=== PATIENT | female | born 1935 | race Caucasian/White ===

== ENCOUNTER 2019-12-26 13:29 | Outpatient (REF) | payer MEDICARE, OTHER, SELFPAY ==
[2019-12-26 15:21] LABS: Anion Gap 15 (12-20); Blood Urea Nitrogen 31 mg/dL (9-16); Calcium 9.1 mg/dL (8.4-10.2); Carbon Dioxide 27 mmol/L (22-29); Chloride 104 mmol/L (96-108); Estimated Glomerular Filt Rate 55; Glucose Random 87 mg/dL (60-115); Potassium 4.2 mmol/l (3.3-5.1); Sodium 142 mmol/L (135-145)
== END 2019-12-26 13:30 | disposition home or self-care (01) ==
LOC: HO.LAB 13:29
PROVIDERS: PCP Internal Medicine; Visit Provider Internal Medicine
DX: I50.9 Heart failure, unspecified (principal)
CPT/HCPCS: 80048

== ENCOUNTER 2020-01-29 10:21 | Outpatient (REF) | payer MEDICARE, OTHER, SELFPAY ==
[2020-01-29 11:02] LABS: Basophils Percent Auto 0.3 % (0-2); Hematocrit 30.2 % (37-47); MANUAL DIFF FLAG SCAN; Red Cell Distribution Width 16.4 % (11.0-16.0); SCAN SMEAR FLAG 1
[2020-01-29 11:04] LABS: Eosinophils Percent Auto 0.6 % (0-4); Hemoglobin 9.3 g/dl (12.0-16.0); Imm Gran Abs Auto 0.04 X10*3/uL (0.00-0.03); Imm Gran Pct Auto 1.2 % (0.0-0.4); Lymphocytes Absolute Auto 0.8 X10*3/uL (1.2-4.9); Lymphocytes Percent Auto 23.1 % (20-40); Mean Corpuscular HGB Conc 30.8 g/dl (31.0-35.0); Mean Corpuscular Hemoglobin 29.5 pg (27.0-33.0); Mean Corpuscular Volume 95.9 fL (80-98); Monocytes Absolute Auto 1.2 X10*3/uL (0.1-1.2); Monocytes Percent Auto 34.1 % (2-11); Neutrophils Absolute Auto 1.4 X10*3/uL (2.0-8.3); Neutrophils Percent Auto 40.7 % (45-73); Red Blood Count 3.15 X10*6/uL (4.20-5.50); White Blood Count 3.5 X10*3/uL (4.8-10.8)
[2020-01-29 11:10] LABS: PLT ABN DIST 1; Platelet Count 93 X10*3/uL (160-400)
[2020-01-29 11:36] LABS: SLIDE REVIEW VERIFIED
[2020-01-29 11:43] LABS: Alanine Aminotransferase 11 U/L (0-31); Albumin Level 4.1 g/dL (3.5-5.0); Alkaline Phosphatase 85 U/L (39-117); Anion Gap 13 (12-20); Aspartate Amino Transferase 18 U/L (5-31); Blood Urea Nitrogen 24 mg/dL (9-16); Calcium 8.8 mg/dL (8.4-10.2); Carbon Dioxide 28 mmol/L (22-29); Chloride 104 mmol/L (96-108); Cholesterol 130 mg/dL; Estimated Glomerular Filt Rate 47; Glucose Random 81 mg/dL (60-115); HDL Cholesterol 52 mg/dL; LDL Cholesterol Calculated 66 mg/dl; Potassium 4.3 mmol/l (3.3-5.1); Sodium 141 mmol/L (135-145); Total Protein 6.1 g/dL (6.5-8.0); Triglycerides 60 mg/dL
== END 2020-01-29 10:22 | disposition home or self-care (01) ==
LOC: HO.LAB 10:21
PROVIDERS: PCP Internal Medicine; Referring Provider Internal Medicine Cardiovascular Disease; Visit Provider Internal Medicine Cardiovascular Disease
DX: I10 Essential (primary) hypertension (principal)
CPT/HCPCS: 36415; 80053; 80061; 85025

== ENCOUNTER 2020-04-23 | Outpatient (REF) | payer MEDICARE, OTHER, SELFPAY | END 2020-04-23 00:01 | disposition home or self-care (01) | LOC: HO.VC | PROVIDERS: Visit Provider Internal Medicine | DX: Z23 Encounter for immunization (principal) | CPT/HCPCS: 0011A ==

== ENCOUNTER 2020-05-20 | Outpatient (REF) | payer MEDICARE, OTHER, SELFPAY | END 2020-05-20 00:01 | disposition home or self-care (01) | LOC: HO.VC | PROVIDERS: Visit Provider Internal Medicine | DX: Z23 Encounter for immunization (principal) | CPT/HCPCS: 0012A ==

== ENCOUNTER 2020-06-18 10:31 | Outpatient (REF) | payer MEDICARE, OTHER, SELFPAY ==
[2020-06-18 11:34] LABS: Imm Gran Abs Auto 0.05 X10*3/uL (0.00-0.03); Imm Gran Pct Auto 1.1 % (0.0-0.4); MANUAL DIFF FLAG SCAN; Mean Corpuscular Volume 97.2 fL (80-98); Red Cell Distribution Width 17.2 % (11.0-16.0); SCAN SMEAR FLAG 1; White Blood Count 4.7 X10*3/uL (4.8-10.8)
[2020-06-18 11:36] LABS: Basophils Percent Auto 0.4 % (0-2); Eosinophils Absolute Auto 0.1 X10*3/uL (0.0-0.4); Eosinophils Percent Auto 1.5 % (0-4); Hematocrit 30.7 % (37-47); Hemoglobin 9.5 g/dl (12.0-16.0); Lymphocytes Absolute Auto 0.8 X10*3/uL (1.2-4.9); Mean Corpuscular HGB Conc 30.9 g/dl (31.0-35.0); Mean Corpuscular Hemoglobin 30.1 pg (27.0-33.0); Mean Platelet Volume 13.9 fL (9.4-12.3); Monocytes Percent Auto 42.1 % (2-11); Neutrophils Absolute Auto 1.8 X10*3/uL (2.0-8.3); Neutrophils Percent Auto 37.9 % (45-73); Platelet Count 103 X10*3/uL (160-400); Red Blood Count 3.16 X10*6/uL (4.20-5.50)
[2020-06-18 11:40] LABS: PLT ABN DIST 1
[2020-06-18 11:42] LABS: Glucose Urine UA NEG (NEG); Leukocyte Esterase Urine NEG (NEG); Nitrite Urine NEG (NEG); PH 5.5 (5.0-8.0); Urine Blood NEG (NEG); Urine Ketones NEG (NEG); Urine Protein NEG (NEG-TRACE)
[2020-06-18 11:43] LABS: Appearance Urine CLEAR; Color Urine YELLOW
[2020-06-18 12:12] LABS: Alanine Aminotransferase 14 U/L (0-31); Albumin Level 4.5 g/dL (3.5-5.0); Alkaline Phosphatase 100 U/L (39-117); Anion Gap 16 (12-20); Aspartate Amino Transferase 20 U/L (5-31); Blood Urea Nitrogen 28 mg/dL (9-16); Calcium 8.8 mg/dL (8.4-10.2); Carbon Dioxide 25 mmol/L (22-29); Chloride 107 mmol/L (96-108); Cholesterol 140 mg/dL; Estimated Glomerular Filt Rate 48; Glucose Fasting 81 mg/dL (60-99); HDL Cholesterol 58 mg/dL; LDL Cholesterol Calculated 71 mg/dl; Potassium 4.5 mmol/L (3.3-5.1); Sodium 143 mmol/L (135-145); Total Protein 6.5 g/dL (6.5-8.0); Triglycerides 59 mg/dL
[2020-06-18 12:19] LABS: Free T4 (Free Thyroxine) 1.09 ng/dL (0.71-1.85); Thyroid Stimulating Hormone 0.41 uIU/mL (0.32-4.0); Vitamin D 25-OH Total 8.7 ng/mL (>30)
[2020-06-18 13:34] LABS: SLIDE REVIEW VERIFIED
== END 2020-06-18 10:32 | disposition home or self-care (01) ==
LOC: HO.LAB 10:31
PROVIDERS: PCP Internal Medicine; Visit Provider Internal Medicine
DX: I10 Essential (primary) hypertension (principal); D46.9 Myelodysplastic syndrome, unspecified; C92.01 Acute myeloblastic leukemia, in remission; E03.9 Hypothyroidism, unspecified; E78.00 Pure hypercholesterolemia, unspecified; I48.91 Unspecified atrial fibrillation; E55.9 Vitamin D deficiency, unspecified
CPT/HCPCS: 36415; 80053; 80061; 81003; 82306; 84439; 84443; 85025

== ENCOUNTER 2020-09-19 14:54 | Outpatient (REF) | payer MEDICARE, OTHER, SELFPAY ==
--- NOTE | ~2020-09-19 | XR_ITS ---
EXAMINATION: XR CHEST CLINICAL INFORMATION: Dyspnea COMPARISON: Previous chest x-ray TECHNIQUE: 2 views of the chest were obtained. FINDINGS: The cardiac silhouette is slightly enlarged but stable. The thoracic aorta is ectatic and tortuous but stable. There are surgical clips in the right superior mediastinum. There are median sternotomy wires. There may be pulmonary venous redistribution. There are bilateral pulmonary nodular opacities, largest measuring 1 to 1.5 cm. There are small bilateral pleural effusions. There are degenerative changes of the spine and shoulders. XR/XR chest 2V IMPRESSION: Pulmonary venous redistribution and small bilateral pleural effusions questionable for CHF. There are bilateral pulmonary nodular opacities. This is atypical for pulmonary edema and infectious, inflammatory or neoplastic process should be considered. This could be better evaluated with chest CT scan. 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
== END 2020-09-19 14:55 | disposition home or self-care (01) ==
LOC: HO.XRAY 14:54
PROVIDERS: PCP Internal Medicine; Visit Provider Internal Medicine
DX: R06.00 Dyspnea, unspecified (principal)
CPT/HCPCS: 71046

== ENCOUNTER 2021-03-03 12:04 | Outpatient (REF) | payer MEDICARE, OTHER, SELFPAY ==
[2021-03-03 13:52] LABS: Appearance Urine HAZY; Color Urine YELLOW; Glucose Urine UA NEG (NEG); Leukocyte Esterase Urine NEG (NEG); Nitrite Urine NEG (NEG); PH 5.5 (5.0-8.0); Specific Gravity - Urine 1.025 (1.005-1.025); Urine Blood NEG (NEG); Urine Ketones NEG (NEG); Urine Protein NEG (NEG-TRACE)
[2021-03-03 13:58] LABS: Basophils Percent Auto 0.4 % (0-2); Eosinophils Absolute Auto 0.1 X10*3/uL (0.0-0.4); Eosinophils Percent Auto 1.1 % (0-4); Hematocrit 31.5 % (37.0-47.0); Hemoglobin 9.8 g/dl (12.0-16.0); Imm Gran Abs Auto 0.08 X10*3/uL (0.00-0.03); Imm Gran Pct Auto 1.4 % (0.0-0.4); Lymphocytes Absolute Auto 0.6 X10*3/uL (1.2-4.9); Lymphocytes Percent Auto 10.1 % (20-40); MANUAL DIFF FLAG SCAN; Mean Corpuscular HGB Conc 31.1 g/dl (31.0-35.0); Mean Corpuscular Hemoglobin 29.4 pg (27.0-33.0); Mean Corpuscular Volume 94.6 fL (80.0-98.0); Monocytes Absolute Auto 2.4 X10*3/uL (0.1-1.2); Monocytes Percent Auto 41.7 % (2-11); Neutrophils Absolute Auto 2.6 x10*3/uL (2.0-8.3); Neutrophils Percent Auto 45.3 % (45-73); Platelet Count 115 X10*3/uL (160-400); Red Blood Count 3.33 X10*6/uL (4.20-5.50); Red Cell Distribution Width 17.3 % (11.0-16.0); SCAN SMEAR FLAG 1; White Blood Count 5.6 X10*3/uL (4.8-10.8)
[2021-03-03 14:28] LABS: Alanine Aminotransferase 10 U/L (0-31); Albumin Level 4.3 g/dL (3.5-5.0); Alkaline Phosphatase 95 U/L (39-117); Anion Gap 14 (12-20); Aspartate Amino Transferase 18 U/L (5-31); Bilirubin Total 1.2 mg/dL (0.0-1.0); Blood Urea Nitrogen 18 mg/dL (9-16); Calcium 9.3 mg/dL (8.4-10.2); Carbon Dioxide 26 mmol/L (22-29); Chloride 106 mmol/L (96-108); Cholesterol 168 mg/dL; Estimated Glomerular Filt Rate 52; Glucose Fasting 78 mg/dL (60-99); HDL Cholesterol 57 mg/dL; LDL Cholesterol Calculated 97 mg/dl; Potassium 4.3 mmol/L (3.3-5.1); SLIDE REVIEW VERIFIED; Sodium 142 mmol/L (135-145); Total Protein 6.5 g/dL (6.5-8.0); Triglycerides 71 mg/dL
[2021-03-03 14:38] LABS: Free T4 (Free Thyroxine) 1.47 ng/dL (0.71-1.85); Thyroid Stimulating Hormone 0.83 uIU/mL (0.32-4.0); Vitamin D 25-OH Total 15.8 ng/mL (>30)
== END 2021-03-03 12:05 | disposition home or self-care (01) ==
LOC: HO.HMGCLDS 12:04
PROVIDERS: PCP Internal Medicine; Visit Provider Internal Medicine
DX: D46.9 Myelodysplastic syndrome, unspecified (principal); E03.9 Hypothyroidism, unspecified; I35.0 Nonrheumatic aortic (valve) stenosis; I48.91 Unspecified atrial fibrillation; E78.00 Pure hypercholesterolemia, unspecified; I10 Essential (primary) hypertension; E55.9 Vitamin D deficiency, unspecified
CPT/HCPCS: 36415; 80053; 80061; 81003; 82306; 84439; 84443; 85025

== ENCOUNTER 2021-07-13 09:59 | Outpatient (REF) | payer MEDICARE, OTHER, SELFPAY ==
[2021-07-13 12:01] LABS: Basophils Percent Auto 0.6 % (0-2); Eosinophils Percent Auto 0.6 % (0-4); SCAN SMEAR FLAG 1
[2021-07-13 12:03] LABS: Hematocrit 31.7 % (37.0-47.0); Imm Gran Abs Auto 0.05 X10*3/uL (0.00-0.03); Imm Gran Pct Auto 1.4 % (0.0-0.4); Lymphocytes Absolute Auto 0.7 X10*3/uL (1.2-4.9); Lymphocytes Percent Auto 18.5 % (20-40); MANUAL DIFF FLAG SCAN; Mean Corpuscular HGB Conc 31.5 g/dl (31.0-35.0); Mean Corpuscular Hemoglobin 30.8 pg (27.0-33.0); Mean Corpuscular Volume 97.5 fL (80.0-98.0); Monocytes Absolute Auto 1.2 X10*3/uL (0.1-1.2); Monocytes Percent Auto 34.8 % (2-11); Neutrophils Absolute Auto 1.6 x10*3/uL (2.0-8.3); Neutrophils Percent Auto 44.1 % (45-73); Platelet Count 107 X10*3/uL (160-400); Red Blood Count 3.25 X10*6/uL (4.20-5.50); Red Cell Distribution Width 17.9 % (11.0-16.0); White Blood Count 3.5 X10*3/uL (4.8-10.8)
[2021-07-13 12:07] LABS: PLT ABN DIST 1
[2021-07-13 12:27] LABS: Appearance Urine CLEAR; Color Urine YELLOW; Glucose Urine UA NEG (NEG); Leukocyte Esterase Urine NEG (NEG); Nitrite Urine NEG (NEG); PH 5.5 (5.0-8.0); Specific Gravity - Urine 1.025 (1.005-1.025); UACC Culture Trigger NO; Urine Blood TRACE (NEG); Urine Ketones NEG (NEG); Urine Protein NEG (NEG-TRACE)
[2021-07-13 12:35] LABS: Alanine Aminotransferase 9 U/L (0-31); Albumin Level 4.4 g/dL (3.5-5.0); Alkaline Phosphatase 83 U/L (39-117); Anion Gap 12 (12-20); Aspartate Amino Transferase 18 U/L (5-31); Bilirubin Total 1.2 mg/dL (0.0-1.0); Blood Urea Nitrogen 24 mg/dL (9-16); Calcium 9.3 mg/dL (8.4-10.2); Carbon Dioxide 27 mmol/L (22-29); Chloride 108 mmol/L (96-108); Cholesterol 167 mg/dL; Estimated Glomerular Filt Rate 40; Free T4 (Free Thyroxine) 1.64 ng/dL (0.71-1.85); Glucose Fasting 92 mg/dL (60-99); HDL Cholesterol 71 mg/dL; LDL Cholesterol Calculated 84 mg/dl; Potassium 4.8 mmol/L (3.3-5.1); Sodium 142 mmol/L (135-145); Thyroid Stimulating Hormone 0.62 uIU/mL (0.32-4.0); Total Protein 6.9 g/dL (6.5-8.0); Triglycerides 60 mg/dL; Vitamin D 25-OH Total 10.5 ng/mL (>30)
[2021-07-13 12:51] LABS: Squamous Epithelial Cell Urine 1+ /LPF
[2021-07-13 12:52] LABS: Bacteria Urine TRACE /LPF; RBC Urine 0 /HPF (0)
[2021-07-13 13:20] LABS: SLIDE REVIEW VERIFIED
== END 2021-07-13 10:00 | disposition home or self-care (01) ==
LOC: HO.HMGCLDS 09:59
PROVIDERS: Visit Provider Internal Medicine
DX: E03.9 Hypothyroidism, unspecified (principal); E55.9 Vitamin D deficiency, unspecified; E78.00 Pure hypercholesterolemia, unspecified; I10 Essential (primary) hypertension
CPT/HCPCS: 36415; 80053; 80061; 81001; 81003; 82306; 84439; 84443; 85025

== ENCOUNTER → 2021-08-11 12:42 | Outpatient (BNVA) | payer MEDICARE, OTHER, SELFPAY | PROVIDERS: PCP Internal Medicine; Visit Provider Surgery | DX: C44.91 Basal cell carcinoma of skin, unspecified (principal) | CPT/HCPCS: 99202 ==

== ENCOUNTER 2021-09-17 09:08 | Outpatient (REF) | payer MEDICARE, OTHER, SELFPAY ==
[2021-09-17 10:26] VITALS: BP 156/59; PULSE 59; RESP 16; TEMP 36.7; O2SAT 100; BMI 21.8
--- NOTE | 2021-09-18 14:12 | W.PM.OPN ---
Operative Note Operative Note Date of Service: 09/17/21 Narrative: Preoperative diagnosis: Basal cell carcinoma left forearm Postoperative diagnosis: Same Procedure: Excision of basal cell carcinoma left forearm Surgeon: Javi Keith MD Video Game Tester: None Anesthesia: Local Indications for procedure: 86-year-old female patient with a prior history of basal cell carcinoma presenting with a raised, hard and enlarging lesion of the left forearm. Patient was evaluated by dermatology and excision recommended. Operative findings: 1.5 cm skin lesion located on the dorsum of the left forearm, excised with 3 mm margins circumferentially. Specimen: Left forearm basal cell carcinoma Estimated blood loss: 2 mL Complications: None Procedure details: Patient was brought to the minor surgery suite and placed in a supine position. The site of surgery was confirmed by the patient in the left forearm. After assuring informed consent, the skin was prepped with Betadine and draped in a sterile fashion. Local anesthesia consisting 1% lidocaine with epinephrine was infiltrated circumferentially around the lesion. An elliptical incision oriented longitudinally was then created with a scalpel. This was carried down through subcutaneous tissue and around the lesion just above the muscle fascia. The lesion was passed off the table and sent to pathology for further examination. After assuring adequate hemostasis dermis was reapproximated using interrupted 3-0 Polysorb sutures. Skin was then closed using interrupted 4-0 nylon sutures. Sterile dressings and non adhesive wrap applied. The patient tolerated the procedure well was discharged to home in stable condition.
== END 2021-09-17 09:09 | disposition home or self-care (01) ==
LOC: HO.MS 09:08
PROVIDERS: PCP Internal Medicine; Visit Provider Surgery
PROC: (CPT 11602; principal; 2021-09-17 11:00)
DX: C44.619 Basal cell carcinoma of skin of left upper limb, including shoulder (principal)
CPT/HCPCS: 11602; 12031; 88305

== ENCOUNTER 2021-09-21 07:49 | Emergency (ER) | payer MEDICARE, OTHER, SELFPAY ==
--- NOTE | ~2021-09-21 | US_ITS ---
EXAMINATION: US VENOUS WITH DOPPLER UPPER EXTREMITY, LEFT CLINICAL INFORMATION: Left arm redness, pain and warmth. COMPARISON: None TECHNIQUE: Ultrasound of the upper extremity is performed using compression sonography and color and pulse Doppler flow with assessment of augmentation of flow. There is also imaging and Doppler assessment of the jugular and subclavian veins. Spectral analysis with color-flow imaging is performed. FINDINGS: Respiratory variation, normal compression, and augmented flow are noted throughout the upper extremity including the axillary, brachial, cubital, as well as proximal radial and ulnar veins. The distal segments cannot be interrogated secondary to overlying bandages. There is normal flow in the internal jugular and subclavian veins. There is no visible deep or superficial thrombophlebitis. Mild subcutaneous edema proximally in the forearm. If the patient's symptoms progress, a followup ultrasound in 5 -7 days might be of value to exclude proximal propagation from a nonvisualized distal arm vein. US/US venous duplex UE LT IMPRESSION: No evidence for deep venous thrombosis in the visualized veins of the left upper extremity.
[2021-09-21 08:04] VITALS: BP 128/38; BP 142/60; PULSE 67; PULSE 74; RESP 16; TEMP 37.8; O2SAT 96; O2SAT 97; BMI 21.8
--- NOTE | 2021-09-21 08:56 | ED.GENADULT ---
HPI - General Adult General Chief complaint: General Medical Stated complaint: BLEEDING LT ARM Time Seen by Provider: 09/21/21 08:56 Source: patient and family () Mode of arrival: ambulatory Limitations: no limitations History of Present Illness HPI narrative: Patient is an 86 year old female presenting to the emergency department today with bleeding from a left forearm incision. Patient states that she had a lump removed on 09/18/[address] Keith. Patient states that she began to bleed from the incision today. Patient states that she is on Eliquis usually and stopped it prior to and during the procedure but she started it again. Patient states that her entire left arm hurts and has some redness and some warmth to it. Patient denies any dizziness, lightheadedness, abdominal pain, nausea, vomiting, fever, chills, blurry vision, double vision, loss of vision, chest pain, difficulty breathing, shortness of breath, back pain, night sweats, pain with urination, increased urinary frequency, increased urinary urgency, blood in her urine or stool, syncope or a near syncopal episode, recent trauma or falls, bowel incontinence, bladder incontinence, bowel retention, bladder retention, or any other complaints at this time. Onset (ago): hour(s) Location: left and upper extremity (forerarm) Severity: mild Severity scale (1-10): 3 Quality: dull Pain Consistency: constant Relieving factors: none Exacerbating factors: none Associated symptoms: denies other symptoms Treatments prior to arrival: none Related Data Home Medications Medication Instructions Recorded Confirmed albuterol sulfate 90 mcg/actuation 2 puff inhalation Q4-6H PRN 12/13/20 07/07/21 aerosol inhaler (ProAir HFA) amiodarone 200 mg tablet 200 mg PO DAILY 12/13/20 08/11/21 apixaban 2.5 mg tablet (Eliquis) 2.5 mg PO BID 12/13/20 08/11/21 atorvastatin 10 mg tablet 10 mg PO DAILY 12/13/20 08/11/21 Previous Rx's Medication Instructions Recorded furosemide 40 mg tablet (Lasix) 40 mg PO Q OTHER DAY #30 tabs 07/14/21 levothyroxine 100 mcg tablet 100 mcg PO QAM #90 tabs 07/14/21 omeprazole 20 mg capsule,delayed 20 mg PO DAILY #90 caps 07/14/21 release tramadol 50 mg tablet 50 mg PO TID PRN pain 30 days #90 07/14/21 tabs cephalexin 500 mg capsule 500 mg PO Q6H 7 days #28 caps 09/21/21 Allergies Allergy/AdvReac Type Severity Reaction Status Date / Time oxycodone Allergy Unknown hallucinati Verified 07/07/21 15:01 ons Review of Systems Constitutional: Constitutional: Reports no additional constitutional complaints, Denies chills, Denies fever(s) and Denies night sweats Eyes: Eyes: Reports no additional eye complaints, Denies blurry vision, Denies change in vision, Denies diplopia, Denies eye discharge, Denies loss of vision and Denies eye pain ENT: Denies dizziness Cardiovascular: Cardiovascular: Reports no additional cardiovascular complaints, Denies chest pain, Denies lightheadedness, Denies Loss of Consciousness and Denies dyspnea Respiratory: Respiratory: Reports no additional respiratory complaints and Denies dyspnea Gastrointestinal: Gastrointestinal: Reports no additional gastrointestinal complaints, Denies abdominal pain, Denies melena, Denies hematochezia, Denies change in bowel habits and Denies change in stool character Genitourinary: Genitourinary: Denies hematuria, Denies urinary frequency, Denies dysuria, Denies urinary incontinence, Denies urinary hesitancy and Denies urinary urgency Musculoskeletal: Musculoskeletal: Reports no additional musculoskeletal complaints, Denies numbness and Denies tingling Comments: left forearm pain, oozing type bleeding from left forearm laceration Neurologic: Denies dizziness, Denies loss of vision, Denies numbness and Denies tingling Psychiatric: Psychiatric: Reports no additional psychiatric complaints Endocrine: Endocrine: Reports no additional endocrine complaints Hematologic/Lymphatic: Hematologic/Lymphatic: Reports no additional hematologic/lymphatic complaints Allergic/Immunologic: Allergic/Immunologic: Reports no additional allergic/immunologic complaints [facility] Past Medical History Attestation statement: The following information was validated with the patient. Source: old records reviewed Medical History Acquired hypothyroidism Acute myelogenous leukemia in remission Aortic stenosis Atrial fibrillation Benign essential hypertension Congestive heart failure Constipation Femur fracture (~08/08/14) GERD without esophagitis Lumbar degenerative disc disease Myelodysplastic syndrome Osteoarthritis Osteopenia Pure hypercholesterolemia Thrombocytopenia Vitamin D deficiency Surgical History Hx laparoscopic cholecystectomy (~06/01/17) S/P aortic dissection repair (~01/27/19) S/P TAVR (transcatheter aortic valve replacement) (~11/21/20) Family History Family History Father No problems noted. Mother No problems noted. Social History Social History Housing: House Alcohol intake: never Patient Tobacco Use Status: Never used Tobacco Tobacco use type: Cigarette e-Cigarette/Vaping Use: Never Used Second Hand Smoke Exposure: No Advance Directives: Yes Advance Directives Information Provided: Yes Advance Directives on File: No Current occupational status: retired Cognitive needs: No Hearing needs: No Vision needs: No Physical Exam ED Vital Signs: Vital Signs - 24 hr 09/21/21 08:04 Temperature 100.0 F Pulse Rate 67 Respiratory Rate 16 Blood Pressure 128/38 L Pulse Oximetry 97 Oxygen Delivery Method Room Air BMI result Body Mass Index 21.8 Const General: cooperative, no acute distress, alert and awake Nutritional Appearance: well nourished Orientation/consciousness: patient oriented x3 Limitations: no limitations HENMT Head: Yes normal to inspection and Yes atraumatic Ears: hearing grossly normal bilaterally and external ears normal General nose exam: Normal external nose present, no nasal discharge noted and no epistaxis Face and sinus: Yes normal facial exam, No abrasion and No laceration Mouth: Normal oral and palatal mucosa present, no drooling and no muffled voice Eyes General: appearance normal, both eyes and all related structures Periorbital: periorbital findings normal Eyelids: Yes eyelids normal Conjunctivae: conjunctivae normal Pupils: Equal, round and reactive pupils present EOM: EOMs intact bilaterally Neck Neck: Yes normal visual inspection, Yes full ROM and Yes no lymphadenopathy Chest Chest palpation & inspection: normal inspection of the chest Resp Effort & Inspection: normal respiratory effort and able to speak in complete sentences Auscultation: clear to auscultation bilaterally Cardio Rate: regular rate Rhythm: regular rhythm GI Inspection: Yes normal to inspection Skin Other: well approximated laceration to the left dorsal forearm with sutures in place, small amount of dark red oozing blood from incision. Neuro General: patient oriented x3 and moves all extremities Cranial nerves: Yes Equal, round and reactive pupils present Cognition (Neuro): normal cognition Motor exam (neuro): 5/5 motor strength present throughout Sensory Exam: Normal double simultaneous stimulation for sensation Coordination: [id number] test normal Extrem Other: redness and warmth appreciated to the left arm extending towards the axilla General: Yes full ROM and Yes capillary refill normal Psych Appearance: grossly normal Mental Status: mental status grossly normal Affect: normal affect Attitude: cooperative Thought process: Normal thought process present Thought content: Normal thought content present Insight: Good insight present (Psych) Medical Decision Making MDM Narrative Medical decision making narrative: Patient is a 86 year old female presenting to the emergency department today with left forearm pain and oozing of blood. Patient's physical exam was as detailed previously in this note. Patient's blood work showed an elevated white blood cell count and decreased platelet count which is to be expected secondary to a recent procedure and eliquis use. Patient's left upper extremity US showed no acute process. I explained my physical exam findings as well as all test results to the patient and the patient's . I answered all questions asked by the patient and the patient's . Patient's arm was rewrapped, without incident. Patient was seen by Dr. Keith who recommended the patient be sent home on ABX and pain management with strict instructions to call the office tomorrow morning for an earlier appointment than if the bleeding continues. I stressed the importance of the patient taking her medication as prescribed. I stressed the importance of the patient following up with her primary care provider and her surgeon, as scheduled. I stressed the importance of the patient returning to the emergency department immediately if her symptoms were to worsen or if she were to develop any dizziness, shortness of breath, difficulty breathing, chest pain, blurry vision, loss of vision, nausea, vomiting, abdominal pain, fever, chills, back pain, or any other complaints. Patient and the patient's verbalized agreement and understanding with this treatment plan and discharge. Differential Diagnosis Differential Diagnosis: bleeding from left forearm incision Medical Records Medical records reviewed: Yes I reviewed the patient's medical records. Lab Data Lab results reviewed: Yes I reviewed the patient's lab results. Result diagrams: 09/21/21 09:34 09/21/21 09:34 Labs: Lab Results 09/21/21 09/21/21 09/21/21 Range/Units 09:34 09:34 09:34 WBC 12.7 H (4.8-10.8) X10*3/uL RBC 3.24 L (4.20-5.50) X10*6/uL Hgb 9.6 L (12.0-16.0) g/dl Hct 31.2 L (37.0-47.0) % MCV 96.3 (80.0-98.0) fL MCH 29.6 (27.0-33.0) pg MCHC 30.8 L (31.0-35.0) g/dl RDW 18.2 H (11.0-16.0) % Plt Count 97 L (160-400) X10*3/uL MPV 11.9 (9.4-12.3) fL Immature Gran % (Auto) 0.6 H (0.0-0.4) % Neut % (Auto) 62.7 (45-73) % Lymph % (Auto) 3.5 L (20-40) % [place] % (Auto) 33.1 H (2-11) % Eos % (Auto) 0.0 (0-4) % Baso % (Auto) 0.1 (0-2) % Lymph # (Auto) 0.4 L (1.2-4.9) X10*3/uL [place] # (Auto) 4.2 H (0.1-1.2) X10*3/uL Eos # (Auto) 0.0 (0.0-0.4) X10*3/uL Baso # (Auto) 0.0 (0.0-0.2) X10*3/uL Abs Immat Gran (auto) 0.07 H (0.00-0.03) X10*3/uL Absolute Neuts (auto) 8.0 (2.0-8.3) x10*3/uL Absolute Nucleated RBC 0.000 (0.0-0.012) X10*3/uL Nucleated RBC % (auto) 0.0 (0.0-0.2) /100WBC Smear Tech's Comments VERIFIED PT 18.1 H (10.0-13.1) SEC INR 1.6 H (0.9-1.1) APTT 43.9 H (24.1-38.0) SEC Sodium 141 (135-145) mmol/L Potassium 3.9 (3.3-5.1) mmol/L Chloride 106 (96-108) mmol/L Carbon Dioxide 27 (22-29) mmol/L Anion Gap 12 (12-20) BUN 16 (9-16) mg/dL Creatinine 1.09 (0.5-1.4) mg/dL Estim Creat Clear Calc 32.6 Estimated GFR 48 Random Glucose 105 (60-115) mg/dL Calcium 8.4 D (8.4-10.2) mg/dL Total Bilirubin 1.4 H (0.0-1.0) mg/dL AST 15 (5-31) U/L ALT 10 (0-31) U/L Alkaline Phosphatase 87 (39-117) U/L Total Protein 6.6 (6.5-8.0) g/dL Albumin 4.2 (3.5-5.0) g/dL Imaging Data Venous US: Attestation: I personally reviewed and interpreted this imaging study as follows: My impression: No acute process. Radiologist's impression: EXAMINATION:? US VENOUS WITH DOPPLER UPPER EXTREMITY, LEFT CLINICAL INFORMATION:? Left arm redness, pain and warmth. COMPARISON:? None TECHNIQUE: Ultrasound of the upper extremity is performed using compression sonography and color and pulse Doppler flow with assessment of augmentation of flow. There is also imaging and Doppler assessment of the jugular and subclavian veins. Spectral analysis with color-flow imaging is performed. FINDINGS: Respiratory variation, normal compression, and augmented flow are noted throughout the upper extremity including the axillary, brachial, cubital, as well as proximal radial and ulnar veins. The distal segments cannot be interrogated secondary to overlying bandages. There is normal flow in the internal jugular and subclavian veins. There is no visible deep or superficial thrombophlebitis. Mild subcutaneous edema proximally in the forearm. If the patient's symptoms progress, a followup ultrasound in 5 -7 days might be of value to exclude proximal propagation from a nonvisualized distal arm vein. US/US venous duplex UE LT IMPRESSION: No evidence for deep venous thrombosis in the visualized veins of the left upper extremity. Dictated By: Arian Gutierrez MD Signed By: Electronically signed by Arian Gutierrez MD 09/21/21 1023 Discharge Plan Discharge Clinical Impression: Pain at surgical incision Patient Disposition: Home, Self-Care Instructions: Postoperative Bleeding (ED) Additional Instructions: Follow up with your primary care provider and your surgeon. Return to the emergency department immediately if your symptoms worsen or if you develop any dizziness, shortness of breath, difficulty breathing, chest pain, blurry vision, loss of vision, nausea, vomiting, abdominal pain, fever, chills, back pain, or any other complaints. Prescriptions: New cephalexin 500 mg capsule 500 mg PO Q6H 7 Days Qty: 28 0RF No Action atorvastatin 10 mg tablet 10 mg PO DAILY amiodarone 200 mg tablet 200 mg PO DAILY Eliquis 2.5 mg tablet 2.5 mg PO BID albuterol sulfate [ProAir HFA] 90 mcg/actuation HFA aerosol inhaler 2 puff inhalation Q4-6H PRN tramadol 50 mg tablet 50 mg PO TID PRN (Reason: pain) 30 Days Qty: 90 1RF Rx Instructions: take 1 tablet by mouth 2 to 3 times a day as needed for increased pain furosemide [Lasix] 40 mg tablet 40 mg PO Q OTHER DAY Qty: 30 0RF levothyroxine 100 mcg tablet 100 mcg PO QAM Qty: 90 1RF omeprazole 20 mg capsule,delayed release(DR/EC) 20 mg PO DAILY Qty: 90 1RF Referrals: [facility] [place] General Surgeons [Provider Group] (Follow up with your surgeon as scheduled. ) Que Lopez MD [Primary Care Provider] - Print Language: [place]
[2021-09-21] MEDS: HYDROcodone Bit/Acetam 5/325 TABLET 1 TAB PO (09:35)
[2021-09-21 09:43] LABS: Hemoglobin 9.6 g/dl (12.0-16.0); Imm Gran Pct Auto 0.6 % (0.0-0.4); Lymphocytes Absolute Auto 0.4 X10*3/uL (1.2-4.9); MANUAL DIFF FLAG SCAN; Mean Corpuscular Volume 96.3 fL (80.0-98.0); SCAN SMEAR FLAG 1
[2021-09-21 09:45] LABS: Basophils Percent Auto 0.1 % (0-2); Hematocrit 31.2 % (37.0-47.0); Imm Gran Abs Auto 0.07 X10*3/uL (0.00-0.03); Lymphocytes Percent Auto 3.5 % (20-40); Mean Corpuscular HGB Conc 30.8 g/dl (31.0-35.0); Mean Corpuscular Hemoglobin 29.6 pg (27.0-33.0); Mean Platelet Volume 11.9 fL (9.4-12.3); Monocytes Absolute Auto 4.2 X10*3/uL (0.1-1.2); Monocytes Percent Auto 33.1 % (2-11); Neutrophils Percent Auto 62.7 % (45-73); Red Blood Count 3.24 X10*6/uL (4.20-5.50); Red Cell Distribution Width 18.2 % (11.0-16.0); White Blood Count 12.7 X10*3/uL (4.8-10.8)
[2021-09-21 09:52] LABS: PLT ABN DIST 1; Platelet Count 97 X10*3/uL (160-400)
[2021-09-21 09:58] LABS: INTERNATIONAL NORM RATIO 1.6 (0.9-1.1); Prothrombin Time 18.1 SEC (10.0-13.1)
[2021-09-21 10:01] LABS: Partial Thromboplastin Time 43.9 SEC (24.1-38.0)
[2021-09-21 10:04] LABS: Alanine Aminotransferase 10 U/L (0-31); Albumin Level 4.2 g/dL (3.5-5.0); Alkaline Phosphatase 87 U/L (39-117); Anion Gap 12 (12-20); Aspartate Amino Transferase 15 U/L (5-31); Bilirubin Total 1.4 mg/dL (0.0-1.0); Blood Urea Nitrogen 16 mg/dL (9-16); Calcium 8.4 mg/dL (8.4-10.2); Carbon Dioxide 27 mmol/L (22-29); Chloride 106 mmol/L (96-108); Creatinine Clr Calc Pharmacy 32.6; Estimated Glomerular Filt Rate 48; Glucose Random 105 mg/dL (60-115); Potassium 3.9 mmol/L (3.3-5.1); Sodium 141 mmol/L (135-145); Total Protein 6.6 g/dL (6.5-8.0)
[2021-09-21 10:11] LABS: SLIDE REVIEW VERIFIED
== END 2021-09-21 10:45 | disposition home or self-care (01) ==
PROVIDERS: Physician Assistant Medical; Emergency Provider Emergency Medicine Emergency Medical Services; PCP Internal Medicine
DX: G89.18 Other acute postprocedural pain (principal); M79.632 Pain in left forearm; I48.91 Unspecified atrial fibrillation; Z79.01 Long term (current) use of anticoagulants
CPT/HCPCS: 36415; 80053; 85025; 85610; 85730; 93971; 99283; 99284

== ENCOUNTER 2022-05-05 10:42 | Outpatient (REF) | payer MEDICARE, OTHER, SELFPAY ==
[2022-05-05 14:13] LABS: Appearance Urine Clear; Color Urine Yellow; Glucose Urine UA Negative (Negative); Leukocyte Esterase Urine Negative (Negative); Nitrite Urine Negative (Negative); PH 5.5 (5.0-9.0); Urine Blood Negative (Negative); Urine Ketones Negative (Negative); Urine Protein Negative (Neg-Trace)
[2022-05-05 14:18] LABS: Basophils Percent Auto 0.4 % (0-2); Eosinophils Percent Auto 0.4 % (0-4); Hematocrit 32.5 % (37.0-47.0); Hemoglobin 9.9 g/dl (12.0-16.0); Imm Gran Abs Auto 0.03 X10*3/uL (0.00-0.03); Imm Gran Pct Auto 0.6 % (0.0-0.4); Lymphocytes Absolute Auto 0.7 X10*3/uL (1.2-4.9); Lymphocytes Percent Auto 13.6 % (20-40); MANUAL DIFF FLAG SCAN; Mean Corpuscular HGB Conc 30.5 g/dl (31.0-35.0); Mean Corpuscular Hemoglobin 30.1 pg (27.0-33.0); Mean Corpuscular Volume 98.8 fL (80.0-98.0); Monocytes Absolute Auto 2.1 X10*3/uL (0.1-1.2); Monocytes Percent Auto 42.7 % (2-11); Neutrophils Absolute Auto 2.1 x10*3/uL (2.0-8.3); Neutrophils Percent Auto 42.3 % (45-73); Platelet Count 115 X10*3/uL (160-400); Red Blood Count 3.29 X10*6/uL (4.20-5.50); Red Cell Distribution Width 18.2 % (11.0-16.0); SCAN SMEAR FLAG 1
[2022-05-05 14:38] LABS: Alanine Aminotransferase 11 U/L (0-31); Albumin Level 4.4 g/dL (3.5-5.0); Alkaline Phosphatase 105 U/L (39-117); Anion Gap 13 (12-20); Aspartate Amino Transferase 18 U/L (5-31); Blood Urea Nitrogen 19 mg/dL (9-16); Calcium 8.9 mg/dL (8.4-10.2); Carbon Dioxide 28 mmol/L (22-29); Chloride 108 mmol/L (96-108); Cholesterol 172 mg/dL; Estimated Glomerular Filt Rate 48; Glucose Fasting 85 mg/dL (60-99); HDL Cholesterol 72 mg/dL; LDL Cholesterol Calculated 90 mg/dl; Potassium 3.8 mmol/L (3.3-5.1); Sodium 145 mmol/L (135-145); Total Protein 6.5 g/dL (6.5-8.0); Triglycerides 53 mg/dL
[2022-05-05 14:47] LABS: Free T4 (Free Thyroxine) 1.46 ng/dL (0.71-1.85); Thyroid Stimulating Hormone 0.84 uIU/mL (0.32-4.0); Vitamin D 25-OH Total 7.5 ng/mL (>30)
[2022-05-05 14:57] LABS: SLIDE REVIEW VERIFIED
== END 2022-05-05 10:43 | disposition home or self-care (01) ==
LOC: HO.HMGCLDS 10:42
PROVIDERS: Visit Provider Internal Medicine
DX: E78.00 Pure hypercholesterolemia, unspecified (principal); E03.9 Hypothyroidism, unspecified; E55.9 Vitamin D deficiency, unspecified; I10 Essential (primary) hypertension; R30.0 Dysuria
CPT/HCPCS: 36415; 80053; 80061; 81003; 82306; 84439; 84443; 85025

== ENCOUNTER 2022-12-20 09:22 | Outpatient (REF) | payer MEDICARE, OTHER, SELFPAY ==
[2022-12-20 11:29] LABS: Appearance Urine Clear; Color Urine Yellow; Glucose Urine UA Negative (Negative); Leukocyte Esterase Urine Trace (Negative); Nitrite Urine Negative (Negative); PH 6.5 (5.0-9.0); Specific Gravity - Urine 1.025 (1.005-1.025); UMIC TRIGGER UACC YES; Urine Blood Negative (Negative); Urine Ketones Negative (Negative); Urine Protein Negative (Neg-Trace)
[2022-12-20 11:38] LABS: Bacteria Urine None Seen (None Seen); Hyaline Casts Urine 0-2 /LPF (0-2); RBC Urine 0-2 /HPF (0-2); Squamous Epithelial Cell Urine 0-2 /HPF (0-2); WBC Urine 0-5 /HPF (0-5)
[2022-12-20 11:59] LABS: Basophils Percent Auto 0.8 % (0-2); Eosinophils Percent Auto 0.3 % (0-4); Hematocrit 31.4 % (37.0-47.0); Hemoglobin 9.9 g/dl (12.0-16.0); Imm Gran Abs Auto 0.04 X10*3/uL (0.00-0.03); Lymphocytes Absolute Auto 0.8 X10*3/uL (1.2-4.9); Lymphocytes Percent Auto 19.6 % (20-40); MANUAL DIFF FLAG SCAN; Mean Corpuscular HGB Conc 31.5 g/dl (31.0-35.0); Mean Corpuscular Hemoglobin 31.5 pg (27.0-33.0); Monocytes Absolute Auto 1.4 X10*3/uL (0.1-1.2); Monocytes Percent Auto 36.6 % (2-11); Neutrophils Absolute Auto 1.6 x10*3/uL (2.0-8.3); Neutrophils Percent Auto 41.7 % (45-73); Red Blood Count 3.14 X10*6/uL (4.20-5.50); Red Cell Distribution Width 18.7 % (11.0-16.0); SCAN SMEAR FLAG 1; White Blood Count 3.9 X10*3/uL (4.8-10.8)
[2022-12-20 12:01] LABS: Platelet Count 97 X10*3/uL (160-400)
[2022-12-20 12:38] LABS: B Type Natriuretic Peptide 252 pg/mL (<100)
[2022-12-20 12:55] LABS: Alanine Aminotransferase 12 U/L (0-31); Albumin Level 4.4 g/dL (3.5-5.0); Alkaline Phosphatase 65 U/L (39-117); Anion Gap 16 (12-20); Aspartate Amino Transferase 20 U/L (5-31); Blood Urea Nitrogen 30 mg/dL (9-16); Calcium 9.2 mg/dL (8.4-10.2); Carbon Dioxide 28 mmol/L (22-29); Chloride 105 mmol/L (96-108); Cholesterol 164 mg/dL (<200); Estimated Glomerular Filt Rate 36; Glucose Fasting 76 mg/dL (60-99); HDL Cholesterol 68 mg/dL (>40); LDL Cholesterol Calculated 86 mg/dL (<100); Potassium 4.4 mmol/L (3.3-5.1); Sodium 145 mmol/L (135-145); Total Protein 6.9 g/dL (6.5-8.0); Triglycerides 52 mg/dL (<150)
[2022-12-20 13:05] LABS: SLIDE REVIEW VERIFIED
[2022-12-20 13:12] LABS: TSH reflex Free T4 1.98 uIU/mL (0.32-4.0); Vitamin D 25-OH Total 52.5 ng/mL (>30)
== END 2022-12-20 09:23 | disposition home or self-care (01) ==
LOC: HO.HMGCLDS 09:22
PROVIDERS: PCP Internal Medicine; Visit Provider Internal Medicine
DX: I11.0 Hypertensive heart disease with heart failure (principal); I50.9 Heart failure, unspecified; E55.9 Vitamin D deficiency, unspecified; E78.00 Pure hypercholesterolemia, unspecified
CPT/HCPCS: 36415; 80053; 80061; 81001; 82306; 83880; 84443; 85025

== ENCOUNTER 2022-12-29 14:38 | Outpatient (AMB) | payer MEDICARE, OTHER, SELFPAY ==
[2022-12-29 14:49] VITALS: BP 130/62; BMI 22.7
--- NOTE | 2022-12-29 14:49 | MHC.PC.OV ---
Vital Signs 12/29/22 14:49 Height 5 ft 4 in Weight 132 lb 7.965 oz BMI 22.7 BP 130/62 Blood Pressure Location Lt brachial Position Sitting Pulse Source Pulse Oximeter Oxygen Delivery Method Room Air Intake Visit Reasons: MDS, AF, CHF Medical Asst Required: No Accompanied by: Spouse Allergies oxycodone Allergy (Unknown, Verified 12/29/22 16:19) hallucinations Medication List - Last Reconciled 12/29/22 by Que Lopez MD albuterol sulfate 90 mcg/actuation (ProAir HFA) 2 puffs inhalation Q4-6H PRN amiodarone 100 mg PO DAILY amoxicillin 2,000 mg (4 x 500 mg) PO ONCE 1 day apixaban (Eliquis) 2.5 mg PO BID furosemide (Lasix) 40 mg PO DAILY levothyroxine 100 mcg PO QAM Lipitor (atorvastatin) 10 mg PO DAILY 90 days NS omeprazole 20 mg PO DAILY tramadol 50 mg PO TID PRN 30 days Tobacco use date assessed: 12/29/22 Fall risk assessment: No Falls in past year Last assessed Fall Risk: 12/29/22 Dental Screening Dental Screen Date: 12/29/22 Did you have a dental visit in the last 12 months?: No Did you have a dental problem in the last 6 months where you did not have access to dental care?: No Was dental information given to patient?: No HPI MDS, AF, CHF HPI Details Patient comes in today for her follow up visit States that she feels okay She denies any headaches or dizziness Denies any chest pains, no increased SOB No nausea/vomiting, no abdominal pain No change in bowel habits noted Had her follow up labs done last week - to discuss her results [facility] Medical History Femur fracture (~08/08/14) Aortic stenosis GERD without esophagitis Vitamin D deficiency Osteopenia Constipation Myelodysplastic syndrome Acquired hypothyroidism Pure hypercholesterolemia Benign essential hypertension Atrial fibrillation Lumbar degenerative disc disease Osteoarthritis Acute myelogenous leukemia in remission Thrombocytopenia Congestive heart failure Surgical History History of excision of lesion (09/17/21) S/P TAVR (transcatheter aortic valve replacement) (~09/03/21) S/P aortic dissection repair (~01/27/19) Hx laparoscopic cholecystectomy (~06/01/17) Family History Father No problems noted. Mother No problems noted. Social History Housing: House Alcohol intake: never Patient Tobacco Use Status: Never used Tobacco Tobacco use type: Cigarette e-Cigarette/Vaping Use: Never Used Second Hand Smoke Exposure: No Current occupational status: retired Cognitive needs: No Hearing needs: No Vision needs: No Questionnaire PHQ-9 Over the last 2 weeks, how often have you been bothered by any of the following problems? 1. Little interest or pleasure in doing things: not at all 2. Feeling down, depressed, or hopeless: not at all 3. Trouble falling or staying asleep, or sleeping too much: not at all 4. Feeling tired or having little energy: not at all 5. Poor appetite or overeating: not at all 6. Feeling bad about yourself - or that you are a failure or have let yourself or your family down: not at all 7. Trouble concentrating on things, such as reading the newspaper or watching television: not at all 8. Moving or speaking so slowly that other people could have noticed. Or the opposite - being so fidgety or restless that you have been moving around a lot more than usual: not at all 9. Thoughts that you would be better off or of hurting yourself in some way: not at all Total score: 0 Depression Screening Interpretation: Negative Depression Screening Done: Yes [id number] - PHQ-9 Billing: Yes Source: Developed by Drs. Cheo Vidal, Gisela Govea, Michael Smith and colleagues, with an educational gurmeet from [employer]. Thrive Questionnaire Date Thrive assessed: 12/29/22 I am a: Patient What is your living situation today?: I have a steady place to live Within the past 12 months, did the food you bought not last and you didn't have the money to get more?: Never true Within the past 12 months, did you worry whether your food would run out before you got money to buy more?: Never true Do you have trouble paying for medicines?: No Do you have trouble getting transportation to medical appointments?: No Do you have trouble paying your heating and electricity bill?: No Do you have trouble taking care of your child, family member or friend?: No Do you have trouble with day-to-day activities such as bathing, preparing meals, shopping, managing finances, etc.?: No Are you currently unemployed and looking for a job?: No Are you interested in more education?: No Please select the resources that you would like help with: None Currently or been in a relationship where the following occur: no concerns reported AUDIT C Alcohol Use Questionnaire (AUDIT-C) 1. How often do you have a drink containing alcohol?: Never 3. How often do you have six or more drinks on one occasion?: Never Total Score: 0 Score Reviewed/Action Taken: Yes MILO-7 AMB Questionnaire MILO-7 Date MILO - 7 assessed: 12/29/22 Feeling nervous, anxious, or on edge: 0 = Not at all Not being able to stop or control worryin = Not at all Worrying too much about different things: 0 = Not at all Trouble relaxin = Not at all Being so restless that it is hard to sit still: 0 = Not at all Becoming easily annoyed or irritable: 0 = Not at all Feeling afraid as if something awful might happen: 0 = Not at all Total MILO-7 score (0-4 normal; 5-9 mild; 10-14 moderate; 15-21 severe): 0 Source: Developed by Drs. Cheo Vidal, Gisela Govea, Michael Smith and colleagues, with an educational gurmeet from [employer]. Review of Systems Const Denies chills, Reports fatigue, Denies fever(s) and Denies headache(s) ENT Denies dysphagia, Denies dizziness, Denies otalgia, Denies headache(s), Denies neck pain, Denies odynophagia and Denies sore throat Card Denies chest pain, Denies palpitations and Reports dyspnea on exertion (mild) Resp Denies cough and Reports dyspnea on exertion (mild) GI Denies abdominal pain, Denies constipation, Denies dysphagia, Denies heartburn, Denies diarrhea, Denies nausea, Denies odynophagia and Denies vomiting Denies difficulty voiding, Denies nocturia and Denies dysuria Musc Reports back pain (over the lower back - chronic) and Denies neck pain Skin/Breast Denies rash Neuro Denies dizziness and Denies headache(s) Endo Reports fatigue and Denies palpitations Jass/Lymph Denies easy bleeding and Denies easy bruising Physical exam (Primary Care) Vital Signs: Last Vital Signs BP 130/62 12/29/22 14:49 Oxygen Delivery Method Room Air 12/29/22 14:49 BMI result Body Mass Index 22.7 Tobacco/Smoking Status: Tobacco use Status Tobacco use date assessed 12/29/22 12/29/22 14:51 Patient Tobacco Use Status Never used Tobacco 12/29/22 14:51 Tobacco use type Cigarette 12/29/22 14:51 e-Cigarette/Vaping Use Never Used 12/29/22 14:51 PHQ-9: PHQ-9 Score PHQ-9: Total score 0 12/29/22 16:22 Depression Screening Interpretation: Negative Thrive Assessment: Date of Thrive Assessment Date Thrive assessed 12/29/22 12/29/22 14:51 Currently or been in a relationship where the following occur: no concerns reported Const General: no acute distress and alert HENMT Ears: TM's normal bilaterally and EAC's normal Throat: Yes posterior oropharynx normal and Yes tonsils normal (no TP congestion noted) Neck Neck: Yes no lymphadenopathy and Yes supple Resp Auscultation: clear to auscultation bilaterally, no rales and no wheezes Cardio Rate: regular rate Rhythm: regular rhythm Heart sounds: Clicking heart sound present ((+) metallic click over the second heart sound) and Murmur heart sound present systolic mid, IV/ and at the right sternal border GI Palpation (GI): Soft to palpation and nontender Auscultation: normal bowel sounds General: Yes no CVA tenderness Back/Spine/Pelvis Back: no CVA tenderness Thoracic/Lumbar Spine: lumbar spinal tenderness Extrem General: Yes no clubbing, cyanosis or edema Results Reviewed Results Reviewed: Laboratory Tests 12/20/22 12/20/22 12/20/22 09:04 09:04 09:04 WBC Hgb Hct Plt Count Sodium 145 Potassium 4.4 Creatinine 1.40 Estimated GFR 36 Fasting Glucose 76 Calcium 9.2 AST 20 ALT 12 B-Natriuretic Peptide Triglycerides 52 Cholesterol 164 LDL Cholesterol, Calc 86 HDL Cholesterol 25-OH Vitamin D Total 52.5 TSH 1.98 Ur Specific [place] Urine Protein Urine Glucose (UA) Urine Blood 12/20/22 12/20/22 12/20/22 09:04 09:36 09:36 WBC 3.9 L Hgb 9.9 L Hct 31.4 L Plt Count 97 L Sodium Potassium Creatinine Estimated GFR Fasting Glucose Calcium AST ALT B-Natriuretic Peptide Triglycerides Cholesterol LDL Cholesterol, Calc HDL Cholesterol 68 25-OH Vitamin D Total TSH Ur Specific [place] Urine Protein Urine Glucose (UA) Urine Blood 12/20/22 12/20/22 12/20/22 09:36 09:36 09:36 WBC Hgb Hct Plt Count Sodium Potassium Creatinine Estimated GFR Fasting Glucose Calcium AST ALT B-Natriuretic Peptide 252 H Triglycerides Cholesterol LDL Cholesterol, Calc HDL Cholesterol 25-OH Vitamin D Total TSH Ur Specific [place] 1.025 Urine Protein Negative Urine Glucose (UA) Negative Urine Blood Negative Assessment and Plan Assessment & Plan (1) Atrial fibrillation: Code(s): I48.91 - Unspecified atrial fibrillation Qualifiers: Atrial fibrillation type: unspecified chronic Qualified Code(s): I48.20 - Chronic atrial fibrillation, unspecified Plan: Was in atrial fibrillation previously but reportedly developed atrial flutter after her TAVR in November 2020 that responded to IV Lopressor Patient currently remains in sinus rhythm and has been maintained on Amiodarone since Continue Amiodarone 100 mg QD (dose was lowered by cardiology from 200 mg a few months ago) and Eliquis 2.5 mg BID for thromboembolism prophylaxis (2) Aortic stenosis: Comment: S/P TAVR on 11/21/2020 Code(s): I35.0 - Nonrheumatic aortic (valve) stenosis Qualifiers: Cardiac valve disease etiology: nonrheumatic Qualified Code(s): I35.0 - Nonrheumatic aortic (valve) stenosis Plan: Is currently still doing well without any significant cardiac symptoms Will need Abx prophylaxis in the future for any dental or GI/ procedures Follow up with cardiology as scheduled (3) Congestive heart failure: Comment: NYHA class 3 Code(s): I50.9 - Heart failure, unspecified Qualifiers: Heart failure type: diastolic Heart failure chronicity: chronic Qualified Code(s): I50.32 - Chronic diastolic (congestive) heart failure Plan: Remains hemodynamically compensated at present Reinforced fluid restrictions Continue Furosemide 40 mg every other day Advised that it has been a while now (2020) since she had a follow up echocardiogram done - states that this is being scheduled by cardiology and she will be getting this done soon (4) Benign essential hypertension: Code(s): I10 - Essential (primary) hypertension Plan: Reinforced low sodium diet - goal is systolic BP of at least 130 to 140 mm or less Was previously on Metoprolol ER but this was apparently discontinued following her TAVR; is currently only on Furosemide 40 mg every other day although this is more for her CHF (5) Pure hypercholesterolemia: Code(s): E78.00 - Pure hypercholesterolemia, unspecified Plan: Results of her labs done last week reviewed and discussed with patient Reinforced low cholesterol diet Continue Atorvastatin 10 mg QD Will recheck her labs and fasting lipids in 3 months for follow up (6) Acquired hypothyroidism: Code(s): E03.9 - Hypothyroidism, unspecified Plan: Patient is currently clinically euthyroid; TSH done last week was normal Continue Levothyroxine 100 mcg QD Will recheck her TFTs in 3 months for follow up (7) Myelodysplastic syndrome: Code(s): D46.9 - Myelodysplastic syndrome, unspecified Plan: Stable although cautioned that she is still moderately anemic (H/H = 9.9/31.4) on her labs done last week and her H/H are mostly unchanged from earlier this year Will continue to monitor her CBC regularly Follow up with hematology/oncology as scheduled - states that she is scheduled to see Dr. 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 Code(s): C92.01 - Acute myeloblastic leukemia, in remission Plan: In remission Follow up with hematology/oncology regularly as scheduled for continuing surveillance - is scheduled to be seen again in a couple of months (9) Osteoarthritis: Code(s): M19.90 - Unspecified osteoarthritis, unspecified site Qualifiers: Osteoarthritis location: multiple joints Osteoarthritis type: primary Qualified Code(s): M15.9 - Polyosteoarthritis, unspecified Plan: Continue Tylenol 325 mg 2 tablets every 6 hours as needed for pain (10) Lumbar degenerative disc disease: Code(s): M51.36 - Other intervertebral disc degeneration, lumbar region Plan: Reinforced activity and weight-lifting restrictions although this is currently not an issue as patient has been practically wheelchair-bound following her heart surgery a couple of months ago Continue Tramadol 50 mg every 8 hours as needed for pain (11) Osteopenia: Code(s): M85.80 - Other specified disorders of bone density and structure, unspecified site Qualifiers: Osteopenia location: unspecified Qualified Code(s): M85.80 - Other specified disorders of bone density and structure, unspecified site Plan: BMD last done on 07/21/2018 - will continue to monitor BMD regularly for now Patient would prefer to have this scheduled later on for next spring (12) Vitamin D deficiency: Code(s): E55.9 - Vitamin D deficiency, unspecified Plan: Corrected - continue Vitamin D3 2000 units QD (13) Constipation: Code(s): K59.00 - Constipation, unspecified Qualifiers: Constipation type: unspecified constipation type Qualified Code(s): K59.00 - Constipation, unspecified Plan: Reinforced increased dietary fiber and to stay hydrated May take OTC stool softeners as needed (14) GERD without esophagitis: Code(s): K21.9 - Gastro-esophageal reflux disease without esophagitis Plan: Dietary restrictions reinforced Continue Omeprazole 20 mg QD Plan Follow up in 3 months Orders: Orders Lipid Panel 3 Months E78.00 - Pure hypercholesterolemia, unspecified Vitamin D 25-OH Total 3 Months E55.9 - Vitamin D deficiency, unspecified UA CC w/rflx Micro + Cult 3 Months R30.0 - Dysuria Complete Blood Count Auto Diff 3 Months C92.01 - Acute myeloblastic leukemia, in remission Comprehensive [place]. Panel Fast 3 Months E78.00 - Pure hypercholesterolemia, unspecified Thyroid Stimulating Hormone 3 Months E03.9 - Hypothyroidism, unspecified Free T4 (Free Thyroxine) 3 Months E03.9 - Hypothyroidism, unspecified Vitamin B12 and Folate 3 Months E53.8 - Deficiency of other specified B group vitamins B Type Natriuretic Peptide 03/31/23 I50.9 - Heart failure, unspecified Coding Level of Care Code Est Pt Level 4 (15857) Diagnoses Chronic atrial fibrillation I48.20 Atrial fibrillation type: unspecified chronic Nonrheumatic aortic valve stenosis I35.0 Cardiac valve disease etiology: nonrheumatic Chronic diastolic congestive heart failure I50.32 Heart failure type: diastolic Heart failure chronicity: chronic Benign essential hypertension I10 Pure hypercholesterolemia E78.00 Acquired hypothyroidism E03.9 Myelodysplastic syndrome D46.9 Acute myelogenous leukemia in remission C92.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 Osteoarthritis location: multiple joints Osteoarthritis type: primary Lumbar degenerative disc disease M51.36 Osteopenia, unspecified location M85.80 Osteopenia location: unspecified Vitamin D deficiency E55.9 Constipation, unspecified constipation type K59.00 Constipation type: unspecified constipation type GERD without esophagitis K21.9
== END 2022-12-29 16:27 | disposition home or self-care (01) ==
PROVIDERS: PCP Internal Medicine; Visit Provider Internal Medicine
DX: I48.20 Chronic atrial fibrillation, unspecified (principal); I11.0 Hypertensive heart disease with heart failure; I50.32 Chronic diastolic (congestive) heart failure; D46.9 Myelodysplastic syndrome, unspecified; C92.01 Acute myeloblastic leukemia, in remission; E78.00 Pure hypercholesterolemia, unspecified; E03.9 Hypothyroidism, unspecified; M15.9 Polyosteoarthritis, unspecified; M51.36 Other intervertebral disc degeneration, lumbar region; M85.80 Other specified disorders of bone density and structure, unspecified site; E55.9 Vitamin D deficiency, unspecified; K59.00 Constipation, unspecified
CPT/HCPCS: 99214

== ENCOUNTER 2023-03-16 10:07 | Outpatient (REF) | payer MEDICARE, OTHER, SELFPAY ==
[2023-03-16 13:29] LABS: Appearance Urine Turbid; Color Urine Yellow; Glucose Urine UA Negative (Negative); Leukocyte Esterase Urine Moderate (2+) (Negative); Nitrite Urine Negative (Negative); PH 6.5 (5.0-9.0); Specific Gravity - Urine 1.025 (1.005-1.025); UMIC TRIGGER UACC YES; Urine Blood Negative (Negative); Urine Ketones Trace mg/dL (Negative); Urine Protein Trace mg/dL (Neg-Trace)
[2023-03-16 13:32] LABS: Bacteria Urine 4+ (None Seen); Hyaline Casts Urine 0-2 /LPF (0-2); RBC Urine 0-2 /HPF (0-2); UACC Culture Trigger YES; WBC Urine >50 /HPF (0-5)
[2023-03-16 14:04] LABS: Basophils Percent Auto 0.9 % (0-2); Eosinophils Percent Auto 0.6 % (0-4); Hematocrit 31.6 % (37.0-47.0); Hemoglobin 9.7 g/dl (12.0-16.0); Imm Gran Abs Auto 0.02 X10*3/uL (0.00-0.03); Imm Gran Pct Auto 0.6 % (0.0-0.4); Lymphocytes Absolute Auto 0.8 X10*3/uL (1.2-4.9); Lymphocytes Percent Auto 24.5 % (20-40); MANUAL DIFF FLAG SCAN; Mean Corpuscular HGB Conc 30.7 g/dl (31.0-35.0); Mean Corpuscular Hemoglobin 30.2 pg (27.0-33.0); Mean Corpuscular Volume 98.4 fL (80.0-98.0); Monocytes Absolute Auto 1.2 X10*3/uL (0.1-1.2); Monocytes Percent Auto 37.2 % (2-11); Neutrophils Absolute Auto 1.2 x10*3/uL (2.0-8.3); Neutrophils Percent Auto 36.2 % (45-73); Platelet Count 90 X10*3/uL (160-400); Red Blood Count 3.21 X10*6/uL (4.20-5.50); Red Cell Distribution Width 18.8 % (11.0-16.0); SCAN SMEAR FLAG 1; White Blood Count 3.2 X10*3/uL (4.8-10.8)
[2023-03-16 14:25] LABS: B Type Natriuretic Peptide 338 pg/mL (<100)
[2023-03-16 14:32] LABS: SLIDE REVIEW VERIFIED
[2023-03-16 16:57] LABS: Alanine Aminotransferase 11 U/L (0-31); Albumin Level 4.4 g/dL (3.5-5.0); Alkaline Phosphatase 70 U/L (39-117); Anion Gap 11 (12-20); Aspartate Amino Transferase 19 U/L (5-31); Bilirubin Total 0.9 mg/dL (0.0-1.0); Blood Urea Nitrogen 22 mg/dL (9-16); Calcium 9.5 mg/dL (8.4-10.2); Carbon Dioxide 30 mmol/L (22-29); Chloride 106 mmol/L (96-108); Cholesterol 169 mg/dL (<200); Estimated Glomerular Filt Rate 43; Glucose Fasting 84 mg/dL (60-99); HDL Cholesterol 75 mg/dL (>40); LDL Cholesterol Calculated 84 mg/dL (<100); Potassium 4.7 mmol/L (3.3-5.1); Sodium 142 mmol/L (135-145); Triglycerides 53 mg/dL (<150)
[2023-03-16 17:04] LABS: Free T4 (Free Thyroxine) 1.37 ng/dL (0.71-1.85); Thyroid Stimulating Hormone 1.04 uIU/mL (0.32-4.0); Vitamin D 25-OH Total 58.1 ng/mL (>30)
[2023-03-16 18:45] LABS: Folate > 20.0 ng/mL (> or = 4.0)
[2023-03-17 14:40] LABS: Vitamin B12 1368 pg/mL (200-900)
== END 2023-03-16 10:08 | disposition home or self-care (01) ==
LOC: HO.HMGCLDS 10:07
PROVIDERS: PCP Internal Medicine; Visit Provider Internal Medicine
DX: E78.00 Pure hypercholesterolemia, unspecified (principal); E03.9 Hypothyroidism, unspecified; I50.9 Heart failure, unspecified; E55.9 Vitamin D deficiency, unspecified; C92.01 Acute myeloblastic leukemia, in remission; E53.8 Deficiency of other specified B group vitamins; R30.0 Dysuria
CPT/HCPCS: 36415; 80053; 80061; 81001; 82306; 82607; 82746; 83880; 84439; 84443; 85025; 87086; 87088; 87186

== ENCOUNTER 2023-08-01 17:34 | Outpatient (AMB) | payer MEDICARE, OTHER, SELFPAY ==
--- NOTE | 2023-08-01 17:34 | MHC.PC.OV ---
Intake Visit Reasons: 3M. F/U-COPD Allergies oxycodone Allergy (Unknown, Verified 08/01/23 17:57) hallucinations Medication List - Last Reconciled 08/01/23 by Que Lopez MD amiodarone 100 mg PO DAILY amoxicillin 2,000 mg (4 x 500 mg) PO ONCE 1 day apixaban (Eliquis) 2.5 mg PO BID furosemide (Lasix) 40 mg PO DAILY levothyroxine 100 mcg PO QAM Lipitor (atorvastatin) 10 mg PO DAILY 90 days NS nirmatrelvir-ritonavir 300 mg (150 mg x 2)-100 mg (Paxlovid) 3 ea PO PER PKG DIR 5 days omeprazole 20 mg PO DAILY tramadol 50 mg PO TID PRN 30 days Tobacco use date assessed: 08/01/23 Fall risk assessment: No Falls in past year Last assessed Fall Risk: 08/01/23 Dental Screening Dental Screen Date: 08/01/23 Did you have a dental visit in the last 12 months?: No Did you have a dental problem in the last 6 months where you did not have access to dental care?: No Was dental information given to patient?: No HPI 3M. F/U-COPD HPI Details Patient's follow-up visit / consultation today is done over the phone - this is a Telehealth visit Patient's current medications have been reviewed and verified with patient and / or caregiver / proxy and have been updated accordingly in the medication list Patient states that she currently feels okay and has had no acute issues lately She denies any headaches or dizziness Denies any chest pains, no increased shortness of breath - states that she has been doing well on her current inhalers No nausea/ vomiting, no abdominal pain No change in bowel habits noted [facility] Medical History Femur fracture (~08/08/14) Aortic stenosis GERD without esophagitis Vitamin D deficiency Osteopenia Constipation Myelodysplastic syndrome Acquired hypothyroidism Pure hypercholesterolemia Benign essential hypertension Atrial fibrillation Lumbar degenerative disc disease Osteoarthritis Acute myelogenous leukemia in remission Thrombocytopenia Congestive heart failure Surgical History History of excision of lesion (09/17/21) S/P TAVR (transcatheter aortic valve replacement) (~11/21/20) S/P aortic dissection repair (~01/27/19) Hx laparoscopic cholecystectomy (~06/01/17) Family History Father No problems noted. Mother No problems noted. Social History Housing: House Alcohol intake: never Patient Tobacco Use Status: Never used Tobacco Tobacco use type: Cigarette e-Cigarette/Vaping Use: Never Used Second Hand Smoke Exposure: No Current occupational status: retired Cognitive needs: No Hearing needs: No Vision needs: No Questionnaire PHQ-9 Over the last 2 weeks, how often have you been bothered by any of the following problems? 1. Little interest or pleasure in doing things: not at all 2. Feeling down, depressed, or hopeless: not at all 3. Trouble falling or staying asleep, or sleeping too much: not at all 4. Feeling tired or having little energy: not at all 5. Poor appetite or overeating: not at all 6. Feeling bad about yourself - or that you are a failure or have let yourself or your family down: not at all 7. Trouble concentrating on things, such as reading the newspaper or watching television: not at all 8. Moving or speaking so slowly that other people could have noticed. Or the opposite - being so fidgety or restless that you have been moving around a lot more than usual: not at all 9. Thoughts that you would be better off or of hurting yourself in some way: not at all Total score: 0 Depression Screening Interpretation: Negative Depression Screening Done: Yes [id number] - PHQ-9 Billing: Yes Source: Developed by Drs. Cheo Vidal, Gisela Govea, Michael Smith and colleagues, with an educational gurmeet from [employer]. Thrive Questionnaire Date Thrive assessed: 08/01/23 I am a: Patient What is your living situation today?: I have a steady place to live Within the past 12 months, did the food you bought not last and you didn't have the money to get more?: Never true Within the past 12 months, did you worry whether your food would run out before you got money to buy more?: Never true Do you have trouble paying for medicines?: No Do you have trouble getting transportation to medical appointments?: No Do you have trouble paying your heating and electricity bill?: No Do you have trouble taking care of your child, family member or friend?: No Do you have trouble with day-to-day activities such as bathing, preparing meals, shopping, managing finances, etc.?: No Are you currently unemployed and looking for a job?: No Are you interested in more education?: No Please select the resources that you would like help with: None Currently or been in a relationship where the following occur: no concerns reported THRIVE Score: 0 AUDIT C Alcohol Use Questionnaire (AUDIT-C) 1. How often do you have a drink containing alcohol?: Never 3. How often do you have six or more drinks on one occasion?: Never Total Score: 0 Score Reviewed/Action Taken: Yes MILO-7 AMB Questionnaire MILO-7 Date MILO - 7 assessed: 08/01/23 Feeling nervous, anxious, or on edge: 0 = Not at all Not being able to stop or control worryin = Not at all Worrying too much about different things: 0 = Not at all Trouble relaxin = Not at all Being so restless that it is hard to sit still: 0 = Not at all Becoming easily annoyed or irritable: 0 = Not at all Feeling afraid as if something awful might happen: 0 = Not at all Total MILO-7 score (0-4 normal; 5-9 mild; 10-14 moderate; 15-21 severe): 0 Source: Developed by Drs. Cheo Vidal, Gisela Govea, Michael Smith and colleagues, with an educational gurmeet from [employer]. Review of Systems Const Denies chills, Reports fatigue (mild), Denies fever(s) and Denies headache(s) ENT Denies dysphagia, Denies dizziness, Denies otalgia, Denies headache(s), Denies neck pain, Denies odynophagia and Denies sore throat Card Denies chest pain, Denies palpitations and Reports dyspnea on exertion (mild) Resp Denies chest congestion, Denies cough and Reports dyspnea on exertion (mild) GI Denies abdominal pain, Denies constipation, Denies dysphagia, Denies heartburn, Denies diarrhea, Denies nausea, Denies odynophagia and Denies vomiting Denies difficulty voiding, Denies nocturia and Denies dysuria Musc Reports back pain (over the lower back - chronic) and Denies neck pain Skin/Breast Denies rash Neuro Denies dizziness and Denies headache(s) Endo Reports fatigue (mild) and Denies palpitations Jass/Lymph Denies easy bleeding and Denies easy bruising Physical exam (Primary Care) Vital Signs: Physical examination is not performed as visit / consultation today is done over the phone - Telehealth visit All physical findings indicated here, if present, are as per patient's and / or caregivers / proxy's report Tobacco/Smoking Status: Tobacco use Status Tobacco use date assessed 08/01/23 08/01/23 17:36 Patient Tobacco Use Status Never used Tobacco 08/01/23 17:36 Tobacco use type Cigarette 08/01/23 17:36 e-Cigarette/Vaping Use Never Used 08/01/23 17:36 PHQ-9: PHQ-9 Score PHQ-9: Total score 0 08/01/23 17:59 Depression Screening Interpretation: Negative Thrive Assessment: Date of Thrive Assessment Date Thrive assessed 08/01/23 08/01/23 17:36 Currently or been in a relationship where the following occur: no concerns reported Telehealth Telehealth Location of provider rendering services: practice address Location of patient: address on file Patient Identification confirmed using: Name, : Yes Telehealth method: voice only Patient verbally consented to treatment: Yes Patient verbally consented to billing insurance company: Yes Patient informed of any privacy concerns related to visit: Yes Minutes spent on Phone/Video with Pt.: 22 Assessment and Plan Assessment & Plan (1) Atrial fibrillation: Code(s): I48.91 - Unspecified atrial fibrillation Qualifiers: Atrial fibrillation type: unspecified chronic Qualified Code(s): I48.20 - Chronic atrial fibrillation, unspecified Plan: Patient was in atrial fibrillation previously but reportedly developed atrial flutter after her TAVR in November 2020 that responded to IV Lopressor She remains in sinus rhythm and has been maintained on Amiodarone since Continue Amiodarone 100 mg QD (dose was lowered by cardiology from 200 mg a few months ago) Continue Eliquis 2.5 mg BID for thromboembolism prophylaxis (2) Aortic stenosis: Comment: S/P TAVR on 11/21/2020 Code(s): I35.0 - Nonrheumatic aortic (valve) stenosis Qualifiers: Cardiac valve disease etiology: nonrheumatic Qualified Code(s): I35.0 - Nonrheumatic aortic (valve) stenosis Plan: Patient Is currently reportedly still doing well without any significant cardiac symptoms She is reminded that she will need Abx prophylaxis in the future for any dental or GI/ procedures Follow up with cardiology as scheduled (3) Congestive heart failure: Comment: NYHA class 3 Code(s): I50.9 - Heart failure, unspecified Qualifiers: Heart failure type: diastolic Heart failure chronicity: chronic Qualified Code(s): I50.32 - Chronic diastolic (congestive) heart failure Plan: Patient appears to remain hemodynamically compensated at present Reinforced fluid restrictions Continue Furosemide 40 mg every other day Advised that it has been a while now (2020) since she had a follow up echocardiogram done - patient states that she will be getting one done soon with cardiology (4) Benign essential hypertension: Code(s): I10 - Essential (primary) hypertension Plan: Reinforced low sodium diet - goal is systolic BP of at least 130 to 140 mm or less She was previously on Metoprolol ER but this was apparently discontinued following her TAVR; is currently only on Furosemide 40 mg every other day although this is more for her CHF (5) Pure hypercholesterolemia: Code(s): E78.00 - Pure hypercholesterolemia, unspecified Plan: Reinforced low cholesterol diet Continue Atorvastatin 10 mg QD Will recheck her labs and fasting lipids in 4 months for follow up (6) Acquired hypothyroidism: Code(s): E03.9 - Hypothyroidism, unspecified Plan: Patient is currently clinically euthyroid; TSH done a few months ago was normal Continue Levothyroxine 100 mcg QD Will recheck her TFTs in 4 months for follow up (7) Myelodysplastic syndrome: Code(s): D46.9 - Myelodysplastic syndrome, unspecified Plan: Stable although cautioned that she was still moderately anemic (H/H = 9.9/31.4) on her labs done a couple of months ago and her H/H are mostly unchanged from earlier this year Will continue to monitor her CBC regularly Follow up with hematology/oncology as scheduled - states that she is scheduled to see Dr. 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 Code(s): C92.01 - Acute myeloblastic leukemia, in remission Plan: In remission Follow up with hematology/oncology regularly as scheduled for continuing surveillance - is scheduled to be seen again in a couple of months (9) Osteoarthritis: Code(s): M19.90 - Unspecified osteoarthritis, unspecified site Qualifiers: Osteoarthritis location: multiple joints Osteoarthritis type: primary Qualified Code(s): M15.9 - Polyosteoarthritis, unspecified Plan: Continue Tylenol 325 mg 2 tablets every 6 hours as needed for pain (10) Lumbar degenerative disc disease: Code(s): M51.36 - Other intervertebral disc degeneration, lumbar region Plan: Reinforced activity and weight-lifting restrictions although this is currently not an issue as patient has been practically wheelchair-bound following her heart surgery a couple of months ago Continue Tramadol 50 mg every 8 hours as needed for pain (11) Osteopenia: Code(s): M85.80 - Other specified disorders of bone density and structure, unspecified site Qualifiers: Osteopenia location: unspecified Qualified Code(s): M85.80 - Other specified disorders of bone density and structure, unspecified site Plan: BMD last done on 07/21/2018 - will continue to monitor BMD regularly for now Patient would prefer to have this scheduled later this year (12) Vitamin D deficiency: Code(s): E55.9 - Vitamin D deficiency, unspecified Plan: Continue Vitamin D3 2000 units QD (13) Constipation: Code(s): K59.00 - Constipation, unspecified Qualifiers: Constipation type: unspecified constipation type Qualified Code(s): K59.00 - Constipation, unspecified Plan: Reinforced increased dietary fiber and to stay hydrated May take OTC stool softeners as needed (14) GERD without esophagitis: Code(s): K21.9 - Gastro-esophageal reflux disease without esophagitis Plan: Dietary restrictions reinforced Continue Omeprazole 20 mg QD Plan Follow up in 4 months Orders: Orders Complete Blood Count Auto Diff 4 Months D64.9 - Anemia, unspecified UA CC w/rflx Micro + Cult 4 Months R30.0 - Dysuria Vitamin B12 and Folate 4 Months E53.8 - Deficiency of other specified B group vitamins Vitamin D 25-OH Total 4 Months E55.9 - Vitamin D deficiency, unspecified B Type Natriuretic Peptide 4 Months I50.9 - Heart failure, unspecified Comprehensive [place]. Panel Fast 4 Months E78.00 - Pure hypercholesterolemia, unspecified Lipid Panel 4 Months E78.00 - Pure hypercholesterolemia, unspecified Free T4 (Free Thyroxine) 4 Months E03.9 - Hypothyroidism, unspecified Thyroid Stimulating Hormone 4 Months E03.9 - Hypothyroidism, unspecified Coding Level of Care Code [facility] Pt Level 4 (60169) Diagnoses Chronic atrial fibrillation I48.20 Atrial fibrillation type: unspecified chronic Nonrheumatic aortic valve stenosis I35.0 Cardiac valve disease etiology: nonrheumatic Chronic diastolic congestive heart failure I50.32 Heart failure type: diastolic Heart failure chronicity: chronic Benign essential hypertension I10 Pure hypercholesterolemia E78.00 Acquired hypothyroidism E03.9 Myelodysplastic syndrome D46.9 Acute myelogenous leukemia in remission C92.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 Osteoarthritis location: multiple joints Osteoarthritis type: primary Lumbar degenerative disc disease M51.36 Osteopenia, unspecified location M85.80 Osteopenia location: unspecified Vitamin D deficiency E55.9 Constipation, unspecified constipation type K59.00 Constipation type: unspecified constipation type GERD without esophagitis K21.9
--- OUTSIDE RECORDS SUMMARY | 2023-08-01 17:35 | XMS_ITS | Continuity of Care Document ---
Author Organization [facility] Address [address] [place] [id number]- Care Team Providers Care Hydrogen Treater Name Role Phone Que Lopez MD Primary Care Physician Encounter [facility] Date(s): 06/30/20 - 07/30/20 [facility] [address] [place], [place] [address] Allergies, Adverse Reactions, Alerts Substance Reaction Severity Status NKA Active Immunizations Given and Recorded Vaccine Date Status Refusal Reason pneumococcal 23-valent vaccine 1 10/22/13 Given Not Given Vaccine Date Status Refusal Reason influenza virus vaccine, inactivated 01/04/14 Not Given Patient Refuses influenza virus vaccine, inactivated 12/25/13 Not Given Patient Refuses 1Early/Late Reason: Other : Medications amlodipine 2.5 mg oral tablet 1 tablet = 2.5 mg, By Mouth, Daily, # 30 tablet, 0 Refills, Maintenance, 10/19/13 15:31:18, Tablet Start Date: 10/19/13 Status: Ordered fondaparinux 2.5 mg/0.5 mL subcutaneous solution = 2.5 mg, Subcutaneous Infusion, Daily, 0 Refills, Maintenance, 02/01/20 13:28:00 EST, Partial fillupon patient request Start Date: 02/01/20 Status: Ordered ibuprofen 200 mg oral capsule 4 capsule = 800 mg, By Mouth, 2 times a day, PRN for fever, # 120 capsule, 0 Refills, Maintenance, 04/18/17 10:57:58, Capsule Start Date: 04/18/17 Status: Ordered levothyroxine 0.1 mg oral tablet 1 tablet = 100 mcg, By Mouth, Daily, # 30 tablet, 0 Refills, Maintenance, 10/19/13 15:30:55, Tablet Start Date: 10/19/13 Status: Ordered Lipitor 10 mg oral tablet 1 tablet = 10 mg, By Mouth, Daily at bedtime, 0 Refills, Maintenance Start Date: 07/11/15 Status: Ordered Magnesium Citrate By Mouth, 0 Refills, Maintenance, 02/01/20 13:28:00 EST, Partial fill upon patient request Start Date: 02/01/20 Status: Ordered metoprolol 25 mg oral tablet 12.5 mg, 0.5, tablet, By Mouth, 2 times a day, # 180 tablet, Refills 0, Maintenance, 02/01/20 13:27:00 EST, Partial fill upon patient request Start Date: 02/01/20 Status: Ordered omeprazole 20 mg oral enteric coated capsule 1 capsule = 20 mg, By Mouth, Daily, # 90 capsule, 3 Refills, Maintenance, 10/07/15 8:57:18 Start Date: 10/07/15 Stop Date: 10/01/16 Status: Ordered Senna By Mouth, 0 Refills, Maintenance, 02/01/20 13:27:00 EST, Partial fill upon patient request Start Date: 02/01/20 Status: Ordered simvastatin 10 mg oral tablet 10 mg, 1, tablet, By Mouth, Daily at bedtime, # 30 tablet, Refills 0, Maintenance, 02/01/20 13:27:00 EST, Partial fill upon patient request Start Date: 02/01/20 Status: Ordered Tramadol = 50 mg, By Mouth, Daily at bedtime, PRN as needed for pain, 0 Refills, Maintenance, 03/28/14 16:09:13 Start Date: 03/28/14 Status: Ordered Problem List Condition Effective Dates Status Health Status Inform ant AML (acute myelogenous leukemia)(Confirmed) Active Epigastric pain(Confirmed) Active Abnormal liver function tests(Confirmed) Active Social History Social History Type Response Smoking Status Never smoker entered on: 02/18/17 Sex
--- OUTSIDE RECORDS SUMMARY | 2023-08-01 17:35 | XMS_ITS | Continuity of Care Document ---
Author Organization [facility] Address [address] [place] [id number]- Care Team Providers Care Coupon And Bond Collection Clerk Name Role Phone Que Lopez MD Primary Care Physician Encounter [facility] Date(s): 11/20/22 - 03/20/23 [facility] [address] [place] [id number]- Attending Physician: Frances Araiza MD Admitting Physician: Frances Araiza MD Allergies, Adverse Reactions, Alerts No Known Allergies Immunizations Given and Recorded Vaccine Date Status Refusal Reason pneumococcal 23-valent vaccine 1 10/22/13 Given 1Early/Late Reason: Other : Medications albuterol CFC free 90 mcg/inh inhalation aerosol 180 mcg, 2, puffs, Inhalation, Every 4 hours, PRN, # 1 each, Refills 0, Tot. Refills 0, Maintenance, 08/23/20 12:56:00 EDT, Inhaler, Route to Pharmacy Electronically, [id number], [facility], 158, , 08/06/20 16... Start Date: 08/23/20 Status: Ordered amiodarone 200 mg oral tablet 0.5 tablets, By Mouth, Daily, Take 1/2 tablet by mouth daily, # 15 tablet, Refills 5, Tot. Refills 5, Maintenance, 12/30/22 7:22:00 EDT, Route to Pharmacy Electronically, [facility]/pharmacy #[id number], Partial fill upon patient request if the prescription is for... Start Date: 12/30/22 Status: Ordered amoxicillin 500 mg oral capsule 4 capsule = 2,000 mg, By Mouth, Once, Take 4 capsules by mouth once 1 hour prior to the dental cleaning/procedure, # 4 capsule, 1 Refills, Soft Stop, 01/02/21 11:23:00 EDT, [facility]/pharmacy #[id number], Partial fill upon patient request if the prescription is f... Start Date: 01/02/21 Status: Ordered apixaban 2.5 mg oral tablet 1 tablet = 2.5 mg, By Mouth, 2 times a day, # 60 tablet, 5 Refills, Maintenance, 12/23/20 10:54:00 EDT, [id number] Partial fill upon patient request if the prescription is for a schedule II opioid drug., 162, cm, 12/05/20 16:12:00 EDT... Start Date: 12/23/20 Stop Date: 06/21/21 Status: Ordered apixaban 2.5 mg oral tablet 1 tablet = 2.5 mg, By Mouth, 2 times a day, # 180 tablet, 3 Refills, Maintenance, 07/21/22 12:47:00EDT, [id number], cm, 07/16/22 11:33:00 EDT, Height, 55, kg, 12/03/20 17:28:00 EDT, Dry Weight Start Date: 07/21/22 Stop Date: 07/16/23 Status: Ordered furosemide 40 mg oral tablet 40 mg, 1, tablet, By Mouth, Every other day, START ON 12/02/2020, # 15 tablet, Refills 0, Tot. Refills 0, Maintenance, 12/01/20 15:04:00 EDT, Route to Pharmacy Electronically, [facility], Partial fill upon patient request if the prescript... Start Date: 12/01/20 Stop Date: 12/31/20 Status: Ordered levothyroxine 0.1 mg oral tablet 1 tablet = 100 mcg, By Mouth, Daily, 0 Refills, Maintenance, 10/19/13 15:30:55 EDT, Tablet Start Date: 10/19/13 Status: Ordered Lipitor 10 mg oral tablet 1 tablet = 10 mg, By Mouth, Daily, # 30 tablet, 0 Refills, Maintenance, 11/22/20 12:38:00 EDT, Tablet, [facility], Partial fill upon patient request if the prescription is for a schedule II opioid drug., 162, cm, 11/22/20 12:21:00 EDT, H... Start Date: 11/22/20 Status: Ordered omeprazole 20 mg oral enteric coated capsule 1 capsule = 20 mg, By Mouth, Daily, # 90 capsule, 3 Refills, Maintenance, 10/07/15 8:57:18 Start Date: 10/07/15 Stop Date: 10/01/16 Status: Ordered traMADol 50 mg oral tablet 1 tablet = 50 mg, By Mouth, Every 8 hours, PRN as needed for pain, Maintenance, 11/21/20 16:25:00 EDT, Tablet, ; Start Date: 11/21/20 Status: Ordered Tylenol 325 mg oral tablet 650 mg, 2, tablet, By Mouth, Every 6 hours, PRN, Refills 0, Maintenance, Pain , Moderate, 08/23/20 12:56:00 EDT, Partial fill upon patient request if the prescription is for a schedule II opioid drug. Start Date: 08/23/20 Status: Ordered Problem List Condition Confirmation Course Effective Dates Status H ealth Status Informant AML (acute myelogenous leukemia) Confirmed Active Atrial flutter Confirmed Active Chronic diastolic heart failure, NYHA class 3 Confirmed Active h/o Thoracic aortic dissection s/p repair 2019 Confirmed Active Dyspnea on exertion Confirmed Active Epigastric pain Confirmed Active Chronic GERD Confirmed Active Heart failure Confirmed Active S/P TAVR (transcatheter aortic valve replacement) Confirmed Active Hypertension Confirmed Active Hypothyroidism Confirmed Active Hypothyroidism Confirmed Active Abnormal liver function tests Confirmed Active Pancytopenia Confirmed Active Severe aortic stenosis Confirmed Active Tachycardia Confirmed Active Social History Social History Type Response Smoking Status Never (less than 100 in lifetime) entered on: 08/12/20 Sex Patient Care team information Care Team Personnel Name: Que Lopez MD Position: Reference Physician Member Role: PCP Address: Address: [address] [place] [id number]- Name: Waleska Corrales RN Position: [facility] RN Member Role: Primary Care Nurse Name: Jackie Purcell NP Position: [facility] PCO Associate Professional Member Role: Primary Care Nurse Address: Address: [address] [place] [phone]- Name: Haim Manuel RN Position: [facility] ED RN W/OE and Tasks Member Role: Primary Care Nurse Name: Marco Antonio Chavez RN Position: S RN Member Role: Primary Care Nurse Name: Claudine Nolan RN Position: [facility] RN Member Role: Primary Care Nurse Name: Brenna Chavez RN Position: [facility] RN Member Role: Primary Care Nurse Name: Tori Rosas RN Position: [facility] AMB Nurse Member Role: Primary Care Nurse Name: Clarice Celeste RN Position: [facility] RN Member Role: Primary Care Nurse Name: Kassandra Mauricio RN Position: [facility] RN Supv Member Role: Primary Care Nurse Name: Jany Welsh RN Position: [facility] RN Member Role: Primary Care Nurse Care Team Related Persons Name: JUNI ZALDIVAR Address: home [address] [place] [id number] Name: ZOHAIB BASSAM Address: [place] [address]
--- OUTSIDE RECORDS SUMMARY | 2023-08-01 17:36 | XMS_ITS | Continuity of Care Document ---
Author Organization [facility] Address [address] [place] [address]- Care Team Providers Care Scaffold Worker Name Role Phone Que Lopez MD Primary Care Physician Encounter [facility] [place] Date(s): 07/10/21 - 08/09/21 [facility] [address] [place] [address]- [place] Allergies, Adverse Reactions, Alerts No Known Allergies Immunizations Given and Recorded Vaccine Date Status Refusal Reason pneumococcal 23-valent vaccine 1 10/22/13 Given Not Given Vaccine Date Status Refusal Reason influenza virus vaccine, inactivated 01/04/14 Not Given Patient Refuses influenza virus vaccine, inactivated 12/25/13 Not Given Patient Refuses 1Early/Late Reason: Other : Medications albuterol CFC free 90 mcg/inh inhalation aerosol 180 mcg, 2, puffs, Inhalation, Every 4 hours, PRN, # 1 each, Refills 0, Tot. Refills 0, Maintenance, 08/23/20 12:56:00 EDT, Inhaler, Route to Pharmacy Electronically, [id number], [facility], 158, cm, 08/06/20 16... Start Date: 08/23/20 Status: Ordered amiodarone 200 mg oral tablet 200 mg, 1, tablet, By Mouth, Daily, # 30 tablet, Refills 5, Tot. Refills 5, Maintenance, 07/16/21 14:08:00 EDT, Route to Pharmacy Electronically, [facility]/pharmacy #[id number], Partial fill upon patient requestif the prescription is for a schedule II opioid jayy... Start Date: 07/16/21 Stop Date: 01/12/22 Status: Ordered amiodarone 200 mg oral tablet 100 mg, 0.5, tablet, By Mouth, Daily, # 15 tablet, Refills 11, Tot. Refills 11, Maintenance, 01/14/21 13:52:00 EDT, [id number] Partial fill upon patient request if the prescription is for a schedule II opioid... Start Date: 01/14/21 Stop Date: 01/09/22 Status: Ordered amoxicillin 500 mg oral capsule 4 capsule = 2,000 mg, By Mouth, Once, Take 4 capsules by mouth once 1 hour prior to the dental cleaning/procedure, # 4 capsule, 1 Refills, Soft Stop, 01/02/21 11:23:00 EDT, [facility]/pharmacy #[id number], Partial fill upon patient request if the prescription is f... Start Date: 01/02/21 Status: Ordered apixaban 2.5 mg oral tablet 1 tablet = 2.5 mg, By Mouth, 2 times a day, # 60 tablet, 5 Refills, Maintenance, 03/24/21 10:50:00 EST, Tablet, [facility]/pharmacy #[id number], 162, cm, 01/02/21 10:44:00 EDT, Height, 55, kg, 12/03/20 17:28:00 EDT, Dry Weight Start Date: 03/24/21 Stop Date: 09/20/21 Status: Ordered apixaban 2.5 mg oral tablet 1 tablet = 2.5 mg, By Mouth, 2 times a day, # 60 tablet, 5 Refills, Maintenance, 12/23/20 10:54:00 EDT, Tablet, [facility]/pharmacy #[id number], Partial fill upon patient request if the prescription is for a schedule II opioid drug., 162, cm, 12/05/20 16:12:00 EDT... Start Date: 12/23/20 Stop Date: 06/21/21 Status: Ordered furosemide 40 mg oral tablet 40 mg, 1, tablet, By Mouth, Every other day, START ON 12/02/2020, # 15 tablet, Refills 0, Tot. 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
--- OUTSIDE RECORDS SUMMARY | 2023-08-01 17:36 | XMS_ITS | Continuity of Care Document ---
Author Organization [facility] Address [address] [place] [address]- Care Team Providers Care Fairing Worker Name Role Phone Que Lopez MD Primary Care Physician Encounter [facility] [place] [facility] [id number] Date(s): 01/02/21 - 05/01/21 [facility] [address] [place] [address]- Attending Physician: Chadd VAZQUEZ, Ashequshmuel Admitting Physician: Chadd VAZQUEZ, Ashequshmuel Referring Physician: Que Lopez MD Allergies, Adverse Reactions, Alerts No Known [...] 12:56:00 EDT, Inhaler, Route to Pharmacy Electronically, [id number], [facility], 158, , 08/06/20 16... Start Date: 08/23/20 Status: Ordered amiodarone 200 mg oral tablet 200 mg, 1, tablet, By Mouth, Daily, # 30 tablet, Refills 5, Tot. Refills 5, Maintenance, 12/23/20 10:54:00 EDT, Route to Pharmacy Electronically, [facility]/pharmacy #[id number], Partial fill upon patient requestif the prescription is for a schedule II opioid jayy... Start Date: 12/23/20 Stop Date: 06/21/21 Status: Ordered amiodarone 200 mg oral tablet 200 mg, 1, tablet, By Mouth, Daily, # 30 tablet, Refills 11, Tot. Refills 11, Maintenance, 01/14/2113:52:00 EDT, Route to Pharmacy Electronically, [facility]/pharmacy #[id number], Partial fill upon patient request if the prescription is for a schedule II opioid d... Start Date: 01/14/21 Stop Date: 01/09/22 Status: Ordered amiodarone 400 mg oral tablet 1 tablet = 400 mg, By Mouth, 2 times a day, Have amiodarone 400mg twice a day for 1 week and then 200mg once a day only, # 14 tablet, 0 Refills, Maintenance, 12/03/20 18:20:00 EDT, Tablet, [facility], Partial fill upon patient request if... Start Date: 12/03/20 Stop Date: 12/10/20 Status: Ordered amoxicillin 500 mg oral capsule 4 capsule = 2,000 mg, By Mouth, Once, Take 4 capsules by mouth once 1 hour prior to the dental cleaning/procedure, # 4 capsule, 1 Refills, Soft Stop, 01/02/21 11:23:00 EDT, [facility]/pharmacy #[id number], Partial fill upon patient request if the prescription is f... Start Date: 01/02/21 Status: Ordered apixaban 2.5 mg oral tablet 1 tablet = 2.5 mg, By Mouth, 2 times a day, # 60 tablet, 5 Refills, Maintenance, 03/24/21 10:50:00 EST, Tablet, [facility]/pharmacy #[id number], 162, cm, 01/02/21 10:44:00 EDT, Height, 55, kg, 12/03/20 17:28:00 EDT, Dry Weight Start Date: 03/24/21 Stop Date: 09/20/21 Status: Ordered apixaban 2.5 mg oral tablet 1 tablet = 2.5 mg, By Mouth, 2 times a day, # 60 tablet, 5 Refills, Maintenance, 12/23/20 10:54:00 EDT, Tablet, [facility]/pharmacy #[id number], Partial fill upon patient request if the prescription is for a schedule II opioid drug., 162, cm, 12/05/20 16:12:00 EDT... Start Date: 12/23/20 Stop Date: 06/21/21 Status: Ordered furosemide 40 mg oral tablet 40 mg, 1, tablet, By Mouth, Every other day, START ON 12/02/2020, # 15 tablet, Refills 0, Tot. Refills 0, Maintenance, 12/01/20 15:04:00 EDT, Route to Pharmacy Electronically, [facility], Partial fill upon patient request if [...] 0 Refills, Maintenance, 11/22/20 12:38:00 EDT, Tablet, [facility], Partial fill upon patient request if [...]
--- OUTSIDE RECORDS SUMMARY | 2023-08-01 17:36 | XMS_ITS | Continuity of Care Document ---
Author Organization [facility] Address [address] [place] [address]- Care Team Providers Care Forepart Laster Name Role Phone Que Lopez MD Primary Care Physician [phone] Encounter [facility] [place] Date(s): 11/05/20 - 12/05/20 [facility] [address] [place] [address]- [place] Allergies, Adverse Reactions, Alerts Substance Reaction Severity [...] 12:56:00 EDT, Inhaler, Route to Pharmacy Electronically, [id number], [facility], 158, cm, 08/06/20 16... Start Date: 08/23/20 Status: Ordered amiodarone 200 mg oral tablet 200 mg, 1, tablet, By Mouth, Daily, # 30 tablet, Refills 0, Tot. Refills 0, Maintenance, 12/11/20 9:00:00 EDT, Do Not Route, Partial fill upon patient request if the prescription is for a schedule IIopioid drug. Start Date: 12/11/20 Stop Date: 01/10/21 Status: Ordered amiodarone 400 mg oral tablet 1 tablet = 400 mg, By Mouth, 2 times a day, Have amiodarone 400mg twice a day for 1 week and then 200mg once a day only, # 14 tablet, 0 Refills, Maintenance, 12/03/20 18:20:00 EDT, Tablet, [facility], Partial fill upon patient request if... Start Date: 12/03/20 Stop Date: 12/10/20 Status: Ordered apixaban 2.5 mg oral tablet 1 tablet = 2.5 mg, By Mouth, 2 times a day, # 60 tablet, 3 Refills, Maintenance, 12/01/20 15:05:00 EDT, Tablet, [facility], Partial fill upon patient request if the prescription is for a schedule II opioid drug., 162, cm, 12/01/20 13:28:... Start Date: 12/01/20 Stop Date: 03/31/21 Status: Ordered furosemide 40 mg oral tablet 40 mg, 1, tablet, By Mouth, Every other day, START ON 12/02/2020, # 15 tablet, Refills 0, Tot. Refills 0, Maintenance, 12/01/20 15:04:00 EDT, Route to Pharmacy Electronically, [facility], Partial fill upon patient request if [...] 0 Refills, Maintenance, 11/22/20 12:38:00 EDT, Tablet, [facility], Partial fill upon patient request if [...]
--- OUTSIDE RECORDS SUMMARY | 2023-08-01 17:36 | XMS_ITS | Continuity of Care Document ---
Author Organization [facility] ter Address [address] [place] [address]- Care Team Providers Care Communications Media Professor Name Role Phone Que Lopez MD Primary Care Physician Encounter [facility] [place] Date(s): 10/24/20 - 10/25/[address] [address] Discharge Disposition: A-D/C Home Attending Physician: Chadd VAZQUEZ, Zoila Admitting Physician: Chadd VAZQUEZ, Ashequshmuel Referring Physician: Chadd VAZQUEZ, Zoila Allergies, Adverse Reactions, Alerts Substance Reaction Severity [...] 12:56:00 EDT, Inhaler, Route to Pharmacy Electronically, [id number], [facility], 158, cm, 08/06/20 16... Start Date: 08/23/20 Status: Ordered amLODIPine 2.5 mg oral tablet 2.5 mg, 1, tablet, By Mouth, Daily, # 30 tablet, Refills 0, Maintenance, 09/24/20 15:55:00 EDT, Partial fill upon patient request if the prescription is for a schedule II opioid drug. Start Date: 09/24/20 Status: Ordered Aspirin Tablet 81 mg, By Mouth, Daily, Refills 0, Maintenance, 08/23/20 12:57:00 EDT, Partial fill upon patient request if the prescription is for a schedule II opioid drug. Start Date: 08/23/20 Status: Ordered furosemide 40 mg oral tablet 40 mg, 1, tablet, By Mouth, Daily, # 30 tablet, Refills 0, Maintenance, 08/12/20 0:19:00 EDT, Partial fill upon patient request if the prescription is for a schedule II opioid drug. Start Date: 08/12/20 Status: Ordered levothyroxine 0.1 mg oral tablet 1 tablet = 100 mcg, By Mouth, Daily, # 30 tablet, 0 Refills, Maintenance, 10/19/13 15:30:55, Tablet Start Date: 10/19/13 Status: Ordered Lipitor 10 mg oral tablet 1 tablet = 10 mg, By Mouth, Daily, 0 Refills, Maintenance Start Date: 07/11/15 Status: Ordered metoprolol 25 mg oral tablet 25 mg, 1, tablet, By Mouth, Daily, # 180 tablet, Refills 0, Maintenance, 02/01/20 13:27:00 EST, Partial fill upon patient request Start Date: 02/01/20 Status: Ordered omeprazole 20 mg oral enteric coated capsule 1 capsule = 20 mg, By Mouth, Daily, # 90 capsule, 3 Refills, Maintenance, 10/07/15 8:57:18 Start Date: 10/07/15 Stop Date: 10/01/16 Status: Ordered Potassium Chloride (Eqv-K-Tab) 20 mEq oral tablet, extended release 1 tablet = 20 mEq, By Mouth, Daily, 0 Refills, Maintenance, 09/24/20 15:55:00 EDT, Partial fill upon patient request if the prescription is for a schedule II opioid drug. Start Date: 09/24/20 Status: Ordered Tramadol = 50 mg, By Mouth, Daily, PRN as needed for pain, 0 Refills, Maintenance, 03/28/14 16:09:13 EST Start Date: 03/28/14 Status: Ordered Tylenol 325 mg oral tablet 650 mg, 2, tablet, By Mouth, Every 6 hours, PRN, Refills 0, Maintenance, Pain , Moderate, 08/23/20 12:56:00 EDT, Partial fill upon patient request if the prescription is for a schedule II opioid drug. 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) Active Dyspnea on exertion(Confirmed) Active Epigastric pain(Confirmed) Active Chronic GERD(Confirmed) Active Heart failure(Confirmed) Active Hypertension(Confirmed) Active Hypothyroidism(Confirmed) Active Abnormal liver function tests(Confirmed) Active Severe aortic stenosis(Confirmed) Active Vital Signs Most recent to oldest [Reference Range]: 1 2 3 Height 162 cm (10/25/20 5:12 AM) 162 cm (10/24/20 11:59 PM) 162 cm (10/24/20 7:37 PM) Weight 59.0 kg (10/24/20 5:32 AM) 56 kg (10/23/20 9:04 AM) 56 kg (10/23/20 9:02 AM) Oxygen Saturation [94-100 %] 91 % *L* (10/25/20 3:00 PM) 96 % (10/25/20 11:00 AM) 91 % *L* (10/25/20 7:00 AM) Pulse Rate [55-90 bpm] 84 bpm (10/25/20 3:00 PM) 87 bpm (10/25/20 11:00 AM) 80 bpm (10/25/20 7:00 AM) Body Mass Index [18.5-24.99] 21.34 (10/23/20 9:04 AM) Blood Pressure [90-138/55-84 mm Hg] 125/57mm Hg (10/25/20 3:00 PM) 113/49mm Hg (10/25/20 11:00 AM) 104/62mm Hg (10/25/20 7:00 AM) Respiratory Rate [16-30 br/min] 16 br/min (10/25/20 3:00 PM) 18 br/min (10/25/20 11:00 AM) 18 br/min (10/25/20 7:00 AM) Temperature [96.8-100.4 DegF] 98.4 DegF (10/25/20 3:00 PM) 98.4 DegF (10/25/20 11:00 AM) 97.8 DegF (10/25/20 7:00 AM) Liters per Minute 2 L/min (10/24/20 7:48 AM) 1 L/min (10/24/20 5:31 AM) 1 L/min (10/24/20 4:07 AM) Mode of Delivery (Oxygen) Room air (10/25/20 3:00 PM) Room air (10/25/20 11:00 AM) Room air (10/25/20 7:00 AM) Blood pressure sites Arm, left (10/25/20 3:00 PM) Arm, left (10/25/20 11:00 AM) Arm, left (10/25/20 7:00 AM) Temperature Route Oral (10/25/20 3:00 PM) Oral (10/25/20 11:00 AM) Axillary (10/25/20 7:00 AM) Dry Weight 56 kg (10/23/20 9:04 AM) 56 kg (10/23/20 9:02 AM) Weight Obtained Via Bed scale (10/24/20 5:32 AM) Standing scale (10/23/20 9:04 AM) Standing scale (10/23/20 9:02 AM) Dry Weight Obtained Via Standing scale (10/23/20 9:04 AM) Standing scale (10/23/20 9:02 AM) Sensory deficits None (10/23/20 9:52 PM) Social History Social History Type Response Smoking Status Never (less than 100 in lifetime) entered on: 08/12/20 Sex
--- OUTSIDE RECORDS SUMMARY | 2023-08-01 17:36 | XMS_ITS | Continuity of Care Document ---
Author Organization [facility] Address [address] [place] [address]- Care Team Providers Care Urban Sociologist Name Role Phone Que Lopez MD Primary Care Physician [phone] Encounter [facility] [place] Date(s): 10/09/20 - 11/08/20 [facility] [address] [place] [address]- [place] Allergies, Adverse Reactions, Alerts Substance Reaction [...] 12:56:00 EDT, Inhaler, Route to Pharmacy Electronically, [id number], [facility], 158, cm, 08/06/20 16... Start Date: [...] function tests(Confirmed) Active Severe aortic stenosis(Confirmed) Active Social History Social History Type Response Smoking Status Never (less than 100 in lifetime) entered on: 08/12/20 Sex
--- OUTSIDE RECORDS SUMMARY | 2023-08-01 17:36 | XMS_ITS | Continuity of Care Document ---
Author Organization [facility] Address [address] [place] [address]- Care Team Providers Care Artificial Stone Applicator Name Role Phone Que Lopez MD Primary Care Physician [place] [facility] [place] 09/[place]/20 - 10/29/20 [facility] [address] [place] [address]- Allergies, Adverse Reactions, Alerts Substance Reaction Severity [...] 12:56:00 EDT, Inhaler, Route to Pharmacy Electronically, [id number], [facility], 158, , 08/06/20 16... Start Date: [...]
--- OUTSIDE RECORDS SUMMARY | 2023-08-01 17:36 | XMS_ITS | Continuity of Care Document ---
Author Organization [facility] Address [address] [place] [address]- Care Team Providers Care Production Material Handler Name Role Phone Que Lopez MD Primary Care Physician Encounter [facility] [place] Date(s): 10/02/20 - 11/01/20 [facility] [address] [place] [address]- Allergies, Adverse Reactions, Alerts Substance Reaction Severity [...] 12:56:00 EDT, Inhaler, Route to Pharmacy Electronically, [id number], [facility], 158, , 08/06/20 16... Start Date: [...]
--- OUTSIDE RECORDS SUMMARY | 2023-08-01 17:36 | XMS_ITS | Continuity of Care Document ---
Author Organization [facility] Address [address] [place] [address]- Care Team Providers Care Director [employer] Name Role Phone Que Lopez MD Primary Care Physician [phone] Encounter [facility] [place] Date(s): 09/24/20 - 10/24/20 [facility] [address] [place] [address] Attending Physician: Bryanna Mcgowan Admitting Physician: AdmBryanna townsend Referring Physician: Admtr, Pj8 Allergies, Adverse Reactions, Alerts Substance Reaction Severity [...] 12:56:00 EDT, Inhaler, Route to Pharmacy Electronically, [id number], [facility], 158, cm, 08/06/20 16... Start [...]
--- OUTSIDE RECORDS SUMMARY | 2023-08-01 17:36 | XMS_ITS | Continuity of Care Document ---
Author Organization [facility] ter Address [address] [place] [address]- Care Team Providers Care Excelsior Cutter Name Role Phone Que Lopez MD Primary Care Physician Encounter [facility] [place] Date(s): 06/06/23 - 07/11/[address] [address] Attending Physician: Frances Araiza MD Admitting Physician: Frances Araiza MD Referring Physician: Frances Araiza MD Allergies, Adverse Reactions, [...] 12:56:00 EDT, Inhaler, Route to Pharmacy Electronically, [id number], [facility], 158, cm, 08/06/20 16... Start Date: 08/23/20 Status: Ordered amiodarone 200 mg oral tablet 0.5, tablet, By Mouth, Daily, # 15 tablet, Refills 11, Tot. Refills 11, Maintenance, 05/05/23 12:31:00 EST, Route to Pharmacy Electronically, [facility], 162, cm, 07/16/22 11:33:00 EDT, Height Start Date: 05/05/23 Status: Ordered amoxicillin 500 mg oral capsule 4 capsule = 2,000 mg, By Mouth, Once, Take 4 capsules by mouth once 1 hour prior to the dental cleaning/procedure, # 4 capsule, 1 Refills, Soft Stop, 01/02/21 11:23:00 EDT, [facility]/pharmacy #[id number], Partial fill upon patient request if the prescription is f... Start Date: 01/02/21 Status: Ordered apixaban 2.5 mg oral tablet 1 tablet = 2.5 mg, By Mouth, 2 times a day, # 60 tablet, 5 Refills, Maintenance, 12/23/20 10:54:00 EDT, Tablet, [facility]/pharmacy #[id number], Partial fill upon patient request if the prescription is for a schedule II opioid drug., 162, cm, 12/05/20 16:12:00 EDT... Start Date: 12/23/20 Stop Date: 06/21/21 Status: Ordered apixaban 2.5 mg oral tablet 1 tablet = 2.5 mg, By Mouth, 2 times a day, # 60 tablet, 11 Refills, Maintenance, 05/05/23 12:31:00EST, Tablet, [facility], 162, cm, 07/16/22 11:33:00 EDT, Height Start Date: 05/05/23 Status: Ordered furosemide 40 mg oral tablet 40 mg, 1, tablet, By Mouth, Every other day, START ON 12/02/2020, # 15 tablet, Refills 0, Tot. Refills 0, Maintenance, 12/01/20 15:04:00 EDT, Route to Pharmacy Electronically, [facility], Partial fill upon patient request if [...] 0 Refills, Maintenance, 11/22/20 12:38:00 EDT, Tablet, [facility], Partial fill upon patient request if [...] Condition Confirmation Course Effective Dates Status H ealt Status Informant AML (acute myelogenous leukemia) Confirmed Active Atrial flutter Confirmed Active Chronic diastolic heart failure, NYHA class 3 Confirmed Active h/o Thoracic aortic dissection s/p repair 2018 Confirmed Active Dyspnea on exertion Confirmed Active [...] Physician Member Role: PCP Address: Address: [address] [place] [address]- Name: Waleska Corrales RN Position: [facility] RN Member Role: Primary Care Nurse Name: Jackie Purcell NP Position: [facility] PCO Associate Professional Member Role: Primary Care Nurse Address: Address: [place] [address]- Name: Haim Manuel RN Position: [facility] ED RN W/OE and Tasks Member Role: Primary Care Nurse Name: Marco Antonio Chavez RN Position: [facility] RN Member Role: Primary Care Nurse Name: Claudine Nolan RN Position: [facility] RN Member Role: [...] Care Nurse Care Team Related Persons Name: ZENJUNI Address: home [address] [place] [address] Name: ZOHAIBAugust Address: home [id number]
--- OUTSIDE RECORDS SUMMARY | 2023-08-01 17:36 | XMS_ITS | Continuity of Care Document ---
Author Organization [facility] Address [address] [place] [address]- Care Team Providers Care Binder Operator Name Role Phone Que Lopez MD Primary Care Physician [place] [facility] [place]): 08/11/22 - 09/10/22 [facility] [address] [place] [address]- [place] Allergies, Adverse Reactions, Alerts No Known [...] 12:56:00 EDT, Inhaler, Route to Pharmacy Electronically, [id number], [facility], 158, cm, 08/06/20 16... Start Date: 08/23/20 Status: Ordered amiodarone 200 mg oral tablet 0.5 tablets, By Mouth, Daily, Take 1/2 tablet by mouth daily, # 15 tablet, Refills 5, Tot. Refills 5, Maintenance, 01/01/22 14:23:00 EDT, Do Not Route, Partial fill upon patient request if the prescription is for a schedule II opioid drug. Start Date: 01/01/22 Status: Ordered amoxicillin 500 mg oral capsule 4 capsule = 2,000 mg, By Mouth, Once, Take 4 capsules by mouth once 1 hour prior to the dental cleaning/procedure, # 4 capsule, 1 Refills, Soft Stop, 01/02/21 11:23:00 EDT, [facility]/pharmacy #[id number], Partial fill upon patient request if the prescription is f... Start Date: 01/02/21 Status: Ordered apixaban 2.5 mg oral tablet 1 tablet = 2.5 mg, By Mouth, 2 times a day, # 60 tablet, 5 Refills, Maintenance, 12/23/20 10:54:00 EDT, [id number] Partial fill upon patient request if the prescription is for a schedule II opioid drug., 162, cm, 12/05/20 16:12:00 EDT... Start Date: 12/23/20 Stop Date: 06/21/21 Status: Ordered apixaban 2.5 mg oral tablet 1 tablet = 2.5 mg, By Mouth, 2 times a day, # 180 tablet, 3 Refills, Maintenance, 07/21/22 12:47:00EDT, Tablet, [id number], [facility], cm, 07/16/22 11:33:00 EDT, Height, 55, kg, 12/03/20 17:28:00 EDT, Dry Weight Start Date: 07/21/22 Stop Date: 07/16/23 Status: Ordered furosemide 40 mg oral tablet 40 mg, 1, tablet, By Mouth, Every other day, START ON 12/02/2020, # 15 tablet, Refills 0, Tot. Refills 0, Maintenance, 12/01/20 15:04:00 EDT, Route to Pharmacy Electronically, [facility], Partial fill upon patient request [...] 0 Refills, Maintenance, 11/22/20 12:38:00 EDT, Tablet, [facility], Partial fill upon patient request [...] Reference Physician Member Role: PCP Address: Address: [address] [place] [address]- Name: Waleska Corrales RN Position: S RN Member Role: Primary Care Nurse Name: Jackie Purcell NP Position: Reference Physician Member Role: Primary Care Nurse Address: Address: [address] [place] [address]- Name: Haim Manuel RN Position: [facility] ED RN W/OE and Tasks Member Role: Primary Care Nurse Name: Marco Antonio Chavez RN Position: S RN Member Role: Primary Care Nurse Name: Claudine Nolan RN Position: [facility] RN Member Role: Primary Care Nurse Name: Brenna Chavez RN Position: [facility] RN Member Role: Primary Care Nurse Name: Tori Rosas RN Position: [facility] AMB Nurse Member Role: Primary Care Nurse Name: Clarice Celeste RN Position: [facility] RN Member Role: Primary Care Nurse Name: Kassandra Mauricio RN Position: [facility] RN Supv Member Role: Primary Care Nurse Name: Jany Welsh RN Position: [facility] RN Member Role: Primary Care Nurse Care Team Related Persons Name: ZENJUNI Address: [address] [address] Name: ZOHAIBAugust Address: home [address]
--- OUTSIDE RECORDS SUMMARY | 2023-08-01 17:36 | XMS_ITS | Continuity of Care Document ---
Author Organization [facility] Address [address] [place] [address]- Care Team Providers Care Director Sales And Marketing Name Role Phone Que Lopez MD Primary Care Physician En[place] [facility] [place] Date(s): 09/11/20 - 10/11/20 [facility] [address] [place], [place] [address] Allergies, Adverse Reactions, Alerts Substance Reaction [...] 12:56:00 EDT, Inhaler, Route to Pharmacy Electronically, [id number], [facility], 158, , 08/06/20 16... Start Date: [...]
--- OUTSIDE RECORDS SUMMARY | 2023-08-01 17:36 | XMS_ITS | Continuity of Care Document ---
Author Organization [facility] Address [address] [place] [address]- Care Team Providers Care Machine Deburrer Name Role Phone Que Lopez MD Primary Care Physician Encounter [facility] [place] Date(s): 12/22/20 - 01/21/21 [facility] [address] [place] [address]- [place] Allergies, Adverse Reactions, Alerts Substance Reaction [...] 12:56:00 EDT, Inhaler, Route to Pharmacy Electronically, [id number], [facility], 158, cm, 08/06/20 16... Start Date: 08/23/20 Status: Ordered amiodarone 200 mg oral tablet 200 mg, 1, tablet, By Mouth, Daily, # 30 tablet, Refills 5, Tot. Refills 5, Maintenance, 12/23/20 10:54:00 EDT, Route to Pharmacy Electronically, [facility]/pharmacy #[id number], Partial fill upon patient requestif the prescription is for a schedule II opioid jayy... Start Date: 12/23/20 Stop Date: 06/21/21 Status: Ordered amiodarone 200 mg oral tablet 200 mg, 1, tablet, By Mouth, Daily, # 30 tablet, Refills 11, Tot. Refills 11, Maintenance, 01/14/2113:52:00 EDT, Route to Pharmacy Electronically, [facility]/pharmacy #[id number], Partial fill upon patient [...] 0 Refills, Maintenance, 12/03/20 18:20:00 EDT, Tablet, [facility], Partial fill upon patient request if... Start Date: 12/03/20 Stop Date: 12/10/20 Status: Ordered amoxicillin 500 mg oral capsule 4 capsule = 2,000 mg, By Mouth, Once, Take 4 capsules by mouth once 1 hour prior to the dental cleaning/procedure, # 4 capsule, 1 Refills, Soft Stop, 01/02/21 11:23:00 EDT, [facility]/pharmacy #[id number], Partial fill upon patient request if the prescription is f... Start Date: 01/02/21 Status: Ordered apixaban 2.5 mg oral tablet 1 tablet = 2.5 mg, By Mouth, 2 times a day, # 60 tablet, 5 Refills, Maintenance, 12/23/20 10:54:00 EDT, Tablet, [facility]/pharmacy #[id number], Partial fill upon patient request if the prescription is for a schedule II opioid drug., 162, cm, 12/05/20 16:12:00 EDT... Start Date: 12/23/20 Stop Date: 06/21/21 Status: Ordered apixaban 2.5 mg oral tablet 1 tablet = 2.5 mg, By Mouth, 2 times a day, # 60 tablet, 3 Refills, Maintenance, 01/02/21 8:16:00 EDT, Tablet, [facility]/pharmacy #[id number], Partial fill upon patient request if the prescription is for a schedule II opioid drug., 162, cm, 12/05/20 16:12:00 EDT,... Start Date: 01/02/21 Stop Date: 05/02/21 Status: Ordered furosemide 40 mg oral tablet 40 mg, 1, tablet, By Mouth, Every other day, START ON 12/02/2020, # 15 tablet, Refills 0, Tot. Refills 0, Maintenance, 12/01/20 15:04:00 EDT, Route to Pharmacy Electronically, [facility], Partial fill upon patient [...] Refills, Maintenance, 11/22/20 12:38:00 EDT, Tablet, [facility], Partial fill upon patient [...]
--- OUTSIDE RECORDS SUMMARY | 2023-08-01 17:36 | XMS_ITS | Continuity of Care Document ---
Author Organization [facility] Address [address] [place] [address]- Care Team Providers Care Radiographic Technologist Name Role Phone Que Lopez MD Primary Care Physician [phone] [place] [facility] [place]20 [facility] [address] [place], [place] [address] Allergies, Adverse Reactions, Alerts Substance Reaction Severity [...] 12:56:00 EDT, Inhaler, Route to Pharmacy Electronically, [id number], [facility], 158, cm, 08/06/20 16... [...] 0 Refills, Maintenance, 12/03/20 18:20:00 EDT, Tablet, [facility], Partial fill upon patient request if... Start Date: 12/03/20 Stop Date: 12/10/20 Status: Ordered apixaban 2.5 mg oral tablet 1 tablet = 2.5 mg, By Mouth, 2 times a day, # 60 tablet, 3 Refills, Maintenance, 12/01/20 15:05:00 EDT, Tablet, [facility], Partial fill upon patient request if the prescription is for a schedule II opioid drug., 162, cm, 12/01/20 13:28:... Start Date: 12/01/20 Stop Date: 03/31/21 Status: Ordered furosemide 40 mg oral tablet 40 mg, 1, tablet, By Mouth, Every other day, START ON 12/02/2020, # 15 tablet, Refills 0, Tot. Refills 0, Maintenance, 12/01/20 15:04:00 EDT, Route to Pharmacy Electronically, [facility], Partial fill upon patient [...] 0 Refills, Maintenance, 11/22/20 12:38:00 EDT, Tablet, [facility], Partial fill upon patient [...]
--- OUTSIDE RECORDS SUMMARY | 2023-08-01 17:36 | XMS_ITS | Continuity of Care Document ---
Author Organization [facility] Address [address] [place] [address]- Care Team Providers Care Camera Prototyping Engineer Name Role Phone Que Lopez MD Primary Care Physician [place] [facility] [place] 02/05/20 - 03/06/20 [facility] [address] [place], [place] [address] Attending Physician: Bryanna Mcgowan Admitting Physician: AdmBryanna townsend Referring Physician: AdmtrBryanna Allergies, Adverse Reactions, Alerts Substance Reaction Severity [...]
--- OUTSIDE RECORDS SUMMARY | 2023-08-01 17:36 | XMS_ITS | Continuity of Care Document ---
Author Organization [facility] Address [address] [place] [address]- Care Team Providers Care Certified Lactation Educator Name Role Phone John VAZQUEZ, Que Lee Primary Care Physician Encounter [facility] Date(s): 12/03/20 - 01/02/21 [facility] [address] [place] [address] Allergies, Adverse Reactions, Alerts Substance Reaction Severity [...] 12:56:00 EDT, Inhaler, Route to Pharmacy Electronically, [id number], [facility], 158, , 08/06/20 16... Start Date: 08/23/20 Status: Ordered amiodarone 200 mg oral tablet 200 mg, 1, tablet, By Mouth, Daily, # 30 tablet, Refills 5, Tot. Refills 5, Maintenance, 12/23/20 10:54:00 EDT, Route to Pharmacy Electronically, [facility]/pharmacy #[id number], Partial fill upon patient requestif the prescription is for a schedule II opioid jayy... Start Date: 12/23/20 Stop Date: 06/21/21 Status: Ordered amiodarone 200 mg oral tablet 200 mg, 1, tablet, By Mouth, Daily, # 30 tablet, Refills 0, Tot. Refills 0, Maintenance, 01/02/21 8:16:00 EDT, Route to Pharmacy Electronically, [facility]/pharmacy #[id number], Partial fill upon patient request if the prescription is for a schedule II opioid drug... Start Date: 01/02/21 Stop Date: 02/01/21 Status: Ordered amiodarone 400 mg oral tablet 1 tablet = 400 mg, By Mouth, 2 times a day, Have amiodarone 400mg twice a day for 1 week and then 200mg once a day only, # 14 tablet, 0 Refills, Maintenance, 12/03/20 18:20:00 EDT, Tablet, [facility], Partial fill upon patient request if... Start Date: 12/03/20 Stop Date: 12/10/20 Status: Ordered amoxicillin 500 mg oral capsule 4 capsule = 2,000 mg, By Mouth, Once, Take 4 capsules by mouth once 1 hour prior to the dental cleaning/procedure, # 4 capsule, 1 Refills, Soft Stop, 01/02/21 11:23:00 EDT, [facility]/pharmacy #[id number], Partial fill upon patient request if the prescription is f... Start Date: 01/02/21 Status: Ordered apixaban 2.5 mg oral tablet 1 tablet = 2.5 mg, By Mouth, 2 times a day, # 60 tablet, 5 Refills, Maintenance, 12/23/20 10:54:00 EDT, Tablet, [facility]/pharmacy #[id number], Partial fill upon patient request if the prescription is for a schedule II opioid drug., 162, cm, 12/05/20 16:12:00 EDT... Start Date: 12/23/20 Stop Date: 06/21/21 Status: Ordered apixaban 2.5 mg oral tablet 1 tablet = 2.5 mg, By Mouth, 2 times a day, # 60 tablet, 3 Refills, Maintenance, 01/02/21 8:16:00 EDT, Tablet, [facility]/pharmacy #[id number], Partial fill upon patient request if the prescription is for a schedule II opioid drug., 162, cm, 12/05/20 16:12:00 EDT,... Start Date: 01/02/21 Stop Date: 2/12/22 Status: Ordered furosemide 40 mg oral tablet 40 mg, 1, tablet, By Mouth, Every other day, START ON 12/02/2020, # 15 tablet, Refills 0, Tot. Refills 0, Maintenance, 12/01/20 15:04:00 EDT, Route to Pharmacy Electronically, [facility], Partial fill upon patient [...] 0 Refills, Maintenance, 11/22/20 12:38:00 EDT, Tablet, [facility], Partial fill upon patient [...]
--- OUTSIDE RECORDS SUMMARY | 2023-08-01 17:36 | XMS_ITS | Continuity of Care Document ---
Author Organization [facility] Address [address] [place] [address]- Care Team Providers Care Tnt Powder Worker Name Role Phone Que Lopez MD Primary Care Physician [place] [facility] [place] 10/21/20 - 11/20/20 [facility] [address] [place] [address]- [place] Allergies, Adverse Reactions, Alerts Substance Reaction [...] 12:56:00 EDT, Inhaler, Route to Pharmacy Electronically, [id number], [facility], 158, , 08/06/20 16... [...]
--- OUTSIDE RECORDS SUMMARY | 2023-08-01 17:36 | XMS_ITS | Continuity of Care Document ---
Author Organization [facility] Address [address] [place] [address]- Care Team Providers Care Referral Nurse Name Role Phone Que Lopez MD Primary Care Physician [place] [facility] [place] 02/11/23 - 03/17/[address] [address] Attending Physician: Frances Araiza MD Admitting Physician: [...] 12:56:00 EDT, Inhaler, Route to Pharmacy Electronically, [id number], [facility] 3, 158, , 08/06/20 16... Start Date: 08/23/20 Status: Ordered amiodarone 200 mg oral tablet 0.5 tablets, By Mouth, Daily, Take 1/2 tablet by mouth daily, # 15 tablet, Refills 5, Tot. Refills 5, Maintenance, 12/30/22 7:22:00 EDT, Route to Pharmacy Electronically, [facility]/pharmacy #[id number], Partial fill upon patient request if the prescription is for... Start Date: 12/30/22 Status: Ordered amoxicillin 500 mg oral capsule 4 capsule = 2,000 mg, By Mouth, Once, Take 4 capsules by mouth once 1 hour prior to the dental cleaning/procedure, # 4 capsule, 1 Refills, Soft Stop, 01/02/21 11:23:00 EDT, [facility]/pharmacy #[id number], Partial fill upon patient request if the prescription is f... Start Date: 01/02/21 Status: Ordered apixaban 2.5 mg oral tablet 1 tablet = 2.5 mg, By Mouth, 2 times a day, # 60 tablet, 5 Refills, Maintenance, 12/23/20 10:54:00 EDT, Tablet, [id number] Partial fill upon patient request if the prescription is for a schedule II opioid drug., 162, cm, 12/05/20 16:12:00 EDT... Start Date: 12/23/20 Stop Date: 06/21/21 Status: Ordered apixaban 2.5 mg oral tablet 1 tablet = 2.5 mg, By Mouth, 2 times a day, # 180 tablet, 3 Refills, Maintenance, 07/21/22 12:47:00EDT, Tablet, [facility]/pharmacy #[id number], 162, cm, 07/16/22 11:33:00 EDT, Height, 55, kg, 12/03/20 17:28:00 EDT, Dry Weight Start Date: 07/21/22 Stop Date: 07/16/23 Status: Ordered furosemide 40 mg oral tablet 40 mg, 1, tablet, By Mouth, Every other day, START ON 12/02/2020, # 15 tablet, Refills 0, Tot. Refills 0, Maintenance, 12/01/20 15:04:00 EDT, Route to Pharmacy Electronically, [facility], Partial fill upon patient request [...] 0 Refills, Maintenance, 11/22/20 12:38:00 EDT, Tablet, [facility], Partial fill upon patient request [...] Reference Physician Member Role: PCP Address: Address: [address] [place] [address] [address] [place] [address]- [place] Name: Waleska Corrales RN Position: [facility] RN Member Role: Primary Care Nurse Name: Jackie Purcell NP Position: [facility] PCO Associate Professional Member Role: Primary Care Nurse Address: Address: [address] [place] [address]- Name: Haim Manuel RN Position: [facility] ED RN W/OE and Tasks Member Role: Primary Care Nurse Name: Marco Antonio Chavez RN Position: [facility] RN Member Role: Primary Care Nurse Name: Claudine Nolan RN Position: [facility] RN Member Role: Primary Care Nurse Name: Brenna Chavez RN Position: [facility] RN Member Role: Primary Care Nurse Name: Tori Rosas RN Position: [facility] AMB Nurse Member Role: Primary Care Nurse Name: Clarice Celeste RN Position: [facility] RN Member Role: Primary Care Nurse Name: Kassandra Mauricio RN Position: [facility] RN Supv Member Role: Primary Care Nurse Name: Jany Welsh RN Position: [facility] RN Member Role: Primary Care Nurse Care Team Related Persons Name: JUNI ZALDIVAR Address: [address] [address] Name: ZOHAIBBASSAM Address: home [address]
--- OUTSIDE RECORDS SUMMARY | 2023-08-01 17:36 | XMS_ITS | Continuity of Care Document ---
Author Organization [facility] Address [address] [place] [address]- Care Team Providers Care Peanut Blancher Name Role Phone Que Lopez MD Primary Care Physician Encounter [facility] [place] Date(s): 08/06/20 - 09/05/20 [facility] [address] [place], [place] [address] Attending Physician: Bryanna Mcgowan Admitting Physician: AdmtrBryanna Referring Physician: AdmtrBryanna Allergies, Adverse Reactions, Alerts [...] 12:56:00 EDT, Inhaler, Route to Pharmacy Electronically, [id number], [facility], 158, cm, 08/06/20 16... 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
--- OUTSIDE RECORDS SUMMARY | 2023-08-01 17:36 | XMS_ITS | Continuity of Care Document ---
Author Organization [facility] Address [address] [place] [address]- Care Team Providers Care Rhia Name Role Phone Que Lopez MD Primary Care Physician [place] [facility] [place] - 08/12/21 [facility] [address] [place] [address]- [place] Allergies, Adverse Reactions, Alerts No Known [...] 12:56:00 EDT, Inhaler, Route to Pharmacy Electronically, [id number], [facility], 158, cm, 08/06/20 16... Start Date: 08/23/20 Status: Ordered amiodarone 200 mg oral tablet 200 mg, 1, tablet, By Mouth, Daily, # 30 tablet, Refills 5, Tot. Refills 5, Maintenance, 07/16/21 14:08:00 EDT, Route to Pharmacy Electronically, [facility]/pharmacy #[id number], Partial fill upon patient requestif the prescription is for a schedule II opioid jayy... Start Date: 07/16/21 Stop Date: 01/12/22 Status: Ordered amiodarone 200 mg oral tablet 100 mg, 0.5, tablet, By Mouth, Daily, # 15 tablet, Refills 11, Tot. Refills 11, Maintenance, 01/14/21 13:52:00 EDT, [id number] Partial fill upon patient request if the prescription is for a schedule II opioid... Start Date: 01/14/21 Stop Date: 01/09/22 Status: Ordered amoxicillin 500 mg oral capsule 4 capsule = 2,000 mg, By Mouth, Once, Take 4 capsules by mouth once 1 hour prior to the dental cleaning/procedure, # 4 capsule, 1 Refills, Soft Stop, 01/02/21 11:23:00 EDT, [facility]/pharmacy #[id number], Partial fill upon patient request if the prescription is f... Start Date: 01/02/21 Status: Ordered apixaban 2.5 mg oral tablet 1 tablet = 2.5 mg, By Mouth, 2 times a day, # 60 tablet, 5 Refills, Maintenance, 03/24/21 10:50:00 EST, Tablet, [facility]/pharmacy #[id number], 162, cm, 01/02/21 10:44:00 EDT, Height, 55, kg, 12/03/20 17:28:00 EDT, Dry Weight Start Date: 03/24/21 Stop Date: 09/20/21 Status: Ordered apixaban 2.5 mg oral tablet 1 tablet = 2.5 mg, By Mouth, 2 times a day, # 60 tablet, 5 Refills, Maintenance, 12/23/20 10:54:00 EDT, Tablet, [facility]/pharmacy #[id number], Partial fill upon patient request if the prescription is for a schedule II opioid drug., 162, cm, 12/05/20 16:12:00 EDT... Start Date: 12/23/20 Stop Date: 06/21/21 Status: Ordered furosemide 40 mg oral tablet 40 mg, 1, tablet, By Mouth, Every other day, START ON 12/02/2020, # 15 tablet, Refills 0, Tot. Refills 0, Maintenance, 12/01/20 15:04:00 EDT, Route to Pharmacy Electronically, [facility], Partial fill upon patient request if [...] 0 Refills, Maintenance, 11/22/20 12:38:00 EDT, Tablet, [facility], Partial fill upon patient request if [...]
--- OUTSIDE RECORDS SUMMARY | 2023-08-01 17:36 | XMS_ITS | Continuity of Care Document ---
Author Organization [facility] Address [address] [place] [address]- Care Team Providers Care Material Worker Name Role Phone Que Lopez MD Primary Care Physician [place] [facility] [place] 06/18/20 - 07/18/20 [facility] [address] [place] [address]- Allergies, Adverse Reactions, Alerts Substance Reaction Severity [...]
--- OUTSIDE RECORDS SUMMARY | 2023-08-01 17:36 | XMS_ITS | Continuity of Care Document ---
Author Organization [facility] Address [address] [place] [address]- Care Team Providers Care Tax Assistant Name Role Phone Que Lopez MD Primary Care Physician [place] [facility] [place] 05/20/23 [facility] [address] [place] [address]- Allergies, Adverse Reactions, Alerts No Known Allergies Immunizations Given and Recorded Vaccine Date Status Refusal Reason pneumococcal 23-valent vaccine 1 10/22/13 Given 1Early/Late Reason: Other : Medications albuterol CFC free 90 mcg/inh inhalation aerosol 180 mcg, 2, puffs, Inhalation, Every 4 hours, PRN, # 1 each, Refills 0, Tot. Refills 0, Maintenance, 08/23/20 12:56:00 EDT, Inhaler, Route to Pharmacy Electronically, [id number], [facility], 158, cm, 08/06/20 16... Start [...] 1 Refills, Soft Stop, 01/02/21 11:23:00 EDT, [facility]/pharmacy #[id number], Partial fill upon patient request if the prescription is f... Start Date: 01/02/21 Status: Ordered apixaban 2.5 mg oral tablet 1 tablet = 2.5 mg, By Mouth, 2 times a day, # 60 tablet, 5 Refills, Maintenance, 12/23/20 10:54:00 EDT, Tablet, [facility]/pharmacy #[id number], Partial fill upon patient request [...] 12/01/20 15:04:00 EDT, Route to Pharmacy Electronically, [facility], Partial fill upon patient request [...] 0 Refills, Maintenance, 11/22/20 12:38:00 EDT, Tablet, [facility], Partial fill upon patient request [...] Reference Physician Member Role: PCP Address: Address: [address] [place] [address] [place] [id number] Name: [place] Corrales RN Position: [facility] RN Member Role: Primary Care Nurse Name: Jackie Purcell NP Position: [facility] PCO Associate Professional Member Role: Primary Care Nurse Address: Address: [address] [place] [address]- Name: Haim Manuel RN Position: [facility] ED RN W/OE and Tasks Member Role: Primary Care Nurse Name: Marco Antonio Chavez RN Position: [facility] RN Member Role: Primary Care Nurse Name: Claudine Nolan RN Position: [facility] RN Member Role: Primary Care Nurse Name: Brenna Chavez RN Position: [facility] RN Member Role: Primary Care Nurse Name: Tori Rosas RN Position: [facility] AMB Nurse Member Role: Primary Care Nurse Name: Clarice Celeste RN Position: S RN Member Role: Primary Care Nurse Name: Kassandra Mauricio RN Position: [facility] RN Supv Member Role: Primary Care Nurse Name: Jany [place] RN Position: [facility] RN Member Role: Primary Care Nurse Care Team Related Persons Name: JUNI ZADLIVAR Address: [address] [address] Name: ZOHAIB AUGUST Address: [place] [address]
--- OUTSIDE RECORDS SUMMARY | 2023-08-01 17:36 | XMS_ITS | Continuity of Care Document ---
Author Organization [facility] Address [address] [place] [address]- Care Team Providers Care Supervisor Laundry Name Role Phone Que Lopez MD Primary Care Physician [place] [facility] [place] - 08/14/20 [facility] [address] [place] [address]- Attending Physician: Martinez Zambrano MD Admitting Physician: Martinez Zambrano MD Referring Physician: Que Lopez MD Allergies, Adverse Reactions, Alerts Substance Reaction Severity [...] 15:31:18, Tablet Start Date: 10/19/13 Status: Ordered furosemide 40 mg oral tablet [...] Date: 10/07/15 Stop Date: 10/01/16 Status: Ordered potassium chloride 20 mEq oral powder for reconstitution 1 pack/packet, By Mouth, Daily, # 30 each, 0 Refills, Maintenance, 08/12/20 0:19:00 EDT, REC Powder, Partial fill upon patient request if the prescription is for a schedule II opioid drug. Start Date: 08/12/20 Status: Ordered Tramadol = 50 mg, By Mouth, Daily, PRN as needed for pain, 0 Refills, Maintenance, 03/28/14 16:09:13 EST Start Date: 03/28/14 Status: Ordered Problem List [...]
--- OUTSIDE RECORDS SUMMARY | 2023-08-01 17:36 | XMS_ITS | Continuity of Care Document ---
Author Organization [facility] Address [address] [place] [address]- Care Team Providers Care Healthcare Specialist Name Role Phone Que Lopez MD Primary Care Physician Encounter [facility] [place] Date(s): 05/05/23 - 06/04/23 [facility] [address] [place] [address]- Allergies, Adverse Reactions, Alerts No Known Allergies Immunizations Given and Recorded Vaccine Date Status Refusal Reason pneumococcal 23-valent vaccine 1 10/22/13 Given 1Early/Late Reason: Other : Medications albuterol CFC free 90 mcg/inh inhalation aerosol 180 mcg, 2, puffs, Inhalation, Every 4 hours, PRN, # 1 each, Refills 0, Tot. Refills 0, Maintenance, 08/23/20 12:56:00 EDT, Inhaler, Route to Pharmacy Electronically, [id number], [facility], 158, cm, 08/06/20 16... [...] 1 Refills, Soft Stop, 01/02/21 11:23:00 EDT, [facility]/pharmacy #[id number], Partial fill upon patient request if the prescription is f... Start Date: 01/02/21 Status: Ordered apixaban 2.5 mg oral tablet 1 tablet = 2.5 mg, By Mouth, 2 times a day, # 60 tablet, 5 Refills, Maintenance, 12/23/20 10:54:00 EDT, Tablet, [facility]/pharmacy #[id number], Partial fill upon patient request if [...] 12/01/20 15:04:00 EDT, Route to Pharmacy Electronically, [facility], Partial fill upon patient [...] 0 Refills, Maintenance, 11/22/20 12:38:00 EDT, Tablet, [facility], Partial fill upon patient [...] Reference Physician Member Role: PCP Address: Address: [address] [place] [address] [place] [id number] Name: [place] Corrales RN Position: [facility] RN Member Role: Primary Care Nurse Name: Jackie Purcell NP Position: [facility] PCO Associate Professional Member Role: Primary Care Nurse Address: Address: [address] [place] [address]- Name: Haim Manuel RN Position: [facility] ED RN W/OE and Tasks Member Role: Primary Care Nurse Name: Marco Antonio Chavez RN Position: [facility] RN Member Role: Primary Care Nurse Name: Claudine Nolan RN Position: [facility] RN Member Role: Primary Care Nurse Name: Brenna Chavez RN Position: [facility] RN Member Role: Primary Care Nurse Name: Tori Rosas RN Position: [facility] AMB Nurse Member Role: Primary Care Nurse Name: Clarice Celeste RN Position: S RN Member Role: Primary Care Nurse Name: Kassandra Mauricio RN Position: [facility] RN Supv Member Role: Primary Care Nurse Name: Jany [place] RN Position: [facility] RN Member Role: Primary Care Nurse Care Team Related Persons Name: JUNI ZALDIVAR Address: [address] [address] Name: ZOHAIB AUGUST Address: [place] [address]
--- OUTSIDE RECORDS SUMMARY | 2023-08-01 17:36 | XMS_ITS | Continuity of Care Document ---
Author Organization [facility] Address [address] [place] [address]- Care Team Providers Care Smocker Name Role Phone Que Lopez MD Primary Care Physician [phone] Encounter [facility] [place] Date(s): 10/06/20 - 11/05/20 [facility] [address] [place] [address]- [place] Allergies, Adverse Reactions, Alerts Substance Reaction [...] 12:56:00 EDT, Inhaler, Route to Pharmacy Electronically, [id number], [facility], 158, cm, 08/06/20 16... Start Date: [...]
--- OUTSIDE RECORDS SUMMARY | 2023-08-01 17:36 | XMS_ITS | Continuity of Care Document ---
Author Organization [facility] Address [address] [place] [address]- Care Team Providers Care Trail Maintenance Worker Name Role Phone Que Lopez MD Primary Care Physician Encounter [facility] [place] Date(s): 06/05/21 - 07/05/21 [facility] [address] [place] [address]- [place] Allergies, Adverse Reactions, Alerts No Known [...] 12:56:00 EDT, Inhaler, Route to Pharmacy Electronically, [id number], [facility], 158, cm, 08/06/20 16... Start Date: 08/23/20 Status: Ordered amiodarone 200 mg oral tablet 200 mg, 1, tablet, By Mouth, Daily, # 30 tablet, Refills 5, Tot. Refills 5, Maintenance, 12/23/20 10:54:00 EDT, Route to Pharmacy Electronically, [facility]/pharmacy #[id number], Partial fill upon patient requestif the prescription is for a schedule II opioid jayy... Start Date: 12/23/20 Stop Date: 06/21/21 Status: Ordered amiodarone 200 mg oral tablet 200 mg, 1, tablet, By Mouth, Daily, # 30 tablet, Refills 11, Tot. Refills 11, Maintenance, 01/14/2113:52:00 EDT, Route to Pharmacy Electronically, [facility]/pharmacy #[id number], Partial fill upon patient request [...] 0 Refills, Maintenance, 12/03/20 18:20:00 EDT, Tablet, [facility], Partial fill upon patient request if... Start Date: 12/03/20 Stop Date: 12/10/20 Status: Ordered amoxicillin 500 mg oral capsule 4 capsule = 2,000 mg, By Mouth, Once, Take 4 capsules by mouth once 1 hour prior to the dental cleaning/procedure, # 4 capsule, 1 Refills, Soft Stop, 01/02/21 11:23:00 EDT, [facility]/pharmacy #[id number], Partial fill upon patient request if the prescription is f... Start Date: 01/02/21 Status: Ordered apixaban 2.5 mg oral tablet 1 tablet = 2.5 mg, By Mouth, 2 times a day, # 60 tablet, 5 Refills, Maintenance, 03/24/21 10:50:00 EST, Tablet, [facility]/pharmacy #[id number], 162, cm, 01/02/21 10:44:00 EDT, Height, 55, kg, 12/03/20 17:28:00 EDT, Dry Weight Start Date: 03/24/21 Stop Date: 09/20/21 Status: Ordered apixaban 2.5 mg oral tablet 1 tablet = 2.5 mg, By Mouth, 2 times a day, # 60 tablet, 5 Refills, Maintenance, 12/23/20 10:54:00 EDT, Tablet, [facility]/pharmacy #[id number], Partial fill upon patient request if the prescription is for a schedule II opioid drug., 162, cm, 12/05/20 16:12:00 EDT... Start Date: 12/23/20 Stop Date: 06/21/21 Status: Ordered furosemide 40 mg oral tablet 40 mg, 1, tablet, By Mouth, Every other day, START ON 12/02/2020, # 15 tablet, Refills 0, Tot. Refills 0, Maintenance, 12/01/20 15:04:00 EDT, Route to Pharmacy Electronically, [facility], Partial fill upon patient [...] 0 Refills, Maintenance, 11/22/20 12:38:00 EDT, Tablet, [facility], Partial fill upon patient [...]
--- OUTSIDE RECORDS SUMMARY | 2023-08-01 17:36 | XMS_ITS | Continuity of Care Document ---
Author Organization [facility] Address [address] [place] [address]- Care Team Providers Care Scuba Diver Name Role Phone Que Lopez MD Primary Care Physician [phone] [place] [facility] [place](s): 02/01/20 - 03/02/20 [facility] [address] [place] [place] [address] Attending Physician: AdmBryanna townsend Admitting Physician: Admtr, Bryanna Referring Physician: Admtr, Ar8 Allergies, Adverse Reactions, Alerts Substance Reaction Severity [...]
--- OUTSIDE RECORDS SUMMARY | 2023-08-01 17:36 | XMS_ITS | Continuity of Care Document ---
Author Organization [facility] Address [address] [place] [address]- Care Team Providers Care Purchase Analyst Name Role Phone Que Lopez MD Primary Care Physician [phone] Encounter [facility] [place] Date(s): 08/14/20 - 09/13/[address] [address] Attending Physician: Not on Staff, Attending MD Admitting Physician: Not on Staff, Admitting MD Referring Physician: Not on Staff, Referring MD Allergies, Adverse Reactions, Alerts Substance Reaction [...] 12:56:00 EDT, Inhaler, Route to Pharmacy Electronically, [id number], [facility] 3, 158, cm, 08/06/20 16... Start Date: [...]
--- OUTSIDE RECORDS SUMMARY | 2023-08-01 17:36 | XMS_ITS | Continuity of Care Document ---
Author Organization [facility] Address [address] [place] [address]- Care Team Providers Care Plastics Fitter Name Role Phone Que Lopez MD Primary Care Physician En[place] [facility] [place] Date(s): 01/25/20 - 03/01/20 [facility] [address] [place] [address]- Attending Physician: Martinez Zambrano MD Admitting Physician: Martinez Zambrano MD Referring Physician: Sukhjinder Johnson MD Allergies, Adverse Reactions, Alerts Substance Reaction [...]
--- OUTSIDE RECORDS SUMMARY | 2023-08-01 17:36 | XMS_ITS | Continuity of Care Document ---
Author Organization [facility] Address [address] [place] [address]- Care Team Providers Care Motion Picture Set Up Worker Name Role Phone Que Lopez MD Primary Care Physician [place] [facility] [place] - 02[place]13/21 [facility] [address] [place] [address]- [place] Allergies, Adverse Reactions, Alerts Substance Reaction [...] 12:56:00 EDT, Inhaler, Route to Pharmacy Electronically, [id number], [facility], 158, cm, 08/06/20 16... Start Date: 08/23/20 Status: Ordered amiodarone 200 mg oral tablet 200 mg, 1, tablet, By Mouth, Daily, # 30 tablet, Refills 5, Tot. Refills 5, Maintenance, 12/23/20 10:54:00 EDT, Route to Pharmacy Electronically, [facility]/pharmacy #[id number], Partial fill upon patient requestif the prescription is for a schedule II opioid jayy... Start Date: 12/23/20 Stop Date: 06/21/21 Status: Ordered amiodarone 200 mg oral tablet 200 mg, 1, tablet, By Mouth, Daily, # 30 tablet, Refills 11, Tot. Refills 11, Maintenance, 01/14/2113:52:00 EDT, Route to Pharmacy Electronically, [facility]/pharmacy #[id number], Partial fill upon patient request if [...] 0 Refills, Maintenance, 12/03/20 18:20:00 EDT, Tablet, [facility], Partial fill upon patient request if... Start Date: 12/03/20 Stop Date: 12/10/20 Status: Ordered amoxicillin 500 mg oral capsule 4 capsule = 2,000 mg, By Mouth, Once, Take 4 capsules by mouth once 1 hour prior to the dental cleaning/procedure, # 4 capsule, 1 Refills, Soft Stop, 01/02/21 11:23:00 EDT, [facility]/pharmacy #[id number], Partial fill upon patient request if the prescription is f... Start Date: 01/02/21 Status: Ordered apixaban 2.5 mg oral tablet 1 tablet = 2.5 mg, By Mouth, 2 times a day, # 60 tablet, 5 Refills, Maintenance, 12/23/20 10:54:00 EDT, Tablet, [facility]/pharmacy #[id number], Partial fill upon patient request if the prescription is for a schedule II opioid drug., 162, cm, 12/05/20 16:12:00 EDT... Start Date: 12/23/20 Stop Date: 06/21/21 Status: Ordered apixaban 2.5 mg oral tablet 1 tablet = 2.5 mg, By Mouth, 2 times a day, # 60 tablet, 3 Refills, Maintenance, 01/02/21 8:16:00 EDT, Tablet, [facility]/pharmacy #[id number], Partial fill upon patient request if the prescription is for a schedule II opioid drug., 162, cm, 12/05/20 16:12:00 EDT,... Start Date: 01/02/21 Stop Date: 05/02/21 Status: Ordered furosemide 40 mg oral tablet 40 mg, 1, tablet, By Mouth, Every other day, START ON 12/02/2020, # 15 tablet, Refills 0, Tot. Refills 0, Maintenance, 12/01/20 15:04:00 EDT, Route to Pharmacy Electronically, [facility], Partial fill upon patient [...] 0 Refills, Maintenance, 11/22/20 12:38:00 EDT, Tablet, [facility], Partial fill upon patient [...]
--- OUTSIDE RECORDS SUMMARY | 2023-08-01 17:36 | XMS_ITS | Continuity of Care Document ---
Author Organization [facility] Address [address] [place] [address]- Care Team Providers Care Biblical Languages Professor Name Role Phone Que Lopez MD Primary Care Physician Encounter [facility] [place] Date(s): 08/11/21 - 09/10/21 [facility] [address] [place] [address]- [place] Allergies, Adverse Reactions, Alerts No Known [...] 12:56:00 EDT, Inhaler, Route to Pharmacy Electronically, [id number], [facility] 3, 158, cm, 08/06/20 16... Start Date: 08/23/20 Status: Ordered amiodarone 200 mg oral tablet 200 mg, 1, tablet, By Mouth, Daily, # 30 tablet, Refills 5, Tot. Refills 5, Maintenance, 07/16/21 14:08:00 EDT, Route to Pharmacy Electronically, [facility]/pharmacy #[id number], Partial fill upon patient requestif the prescription is for a schedule II opioid jayy... Start Date: 07/16/21 Stop Date: 01/12/22 Status: Ordered amiodarone 200 mg oral tablet 100 mg, 0.5, tablet, By Mouth, Daily, # 15 tablet, Refills 11, Tot. Refills 11, Maintenance, 01/14/21 13:52:00 EDT, [id number] Partial fill upon patient request if the prescription is for a schedule II opioid... Start Date: 01/14/21 Stop Date: 01/09/22 Status: Ordered amoxicillin 500 mg oral capsule 4 capsule = 2,000 mg, By Mouth, Once, Take 4 capsules by mouth once 1 hour prior to the dental cleaning/procedure, # 4 capsule, 1 Refills, Soft Stop, 01/02/21 11:23:00 EDT, [facility]/pharmacy #[id number], Partial fill upon patient request if the prescription is f... Start Date: 01/02/21 Status: Ordered apixaban 2.5 mg oral tablet 1 tablet = 2.5 mg, By Mouth, 2 times a day, # 60 tablet, 5 Refills, Maintenance, 03/24/21 10:50:00 EST, Tablet, [facility]/pharmacy #[id number], 162, cm, 01/02/21 10:44:00 EDT, Height, 55, kg, 12/03/20 17:28:00 EDT, Dry Weight Start Date: 03/24/21 Stop Date: 09/20/21 Status: Ordered apixaban 2.5 mg oral tablet 1 tablet = 2.5 mg, By Mouth, 2 times a day, # 60 tablet, 5 Refills, Maintenance, 12/23/20 10:54:00 EDT, Tablet, [facility]/pharmacy #[id number], Partial fill upon patient request if the prescription is for a schedule II opioid drug., 162, cm, 12/05/20 16:12:00 EDT... Start Date: 12/23/20 Stop Date: 06/21/21 Status: Ordered furosemide 40 mg oral tablet 40 mg, 1, tablet, By Mouth, Every other day, START ON 12/02/2020, # 15 tablet, Refills 0, Tot. Refills 0, Maintenance, 12/01/20 15:04:00 EDT, Route to Pharmacy Electronically, [facility], Partial fill upon patient request [...] 0 Refills, Maintenance, 11/22/20 12:38:00 EDT, Tablet, [facility], Partial fill upon patient request [...]
--- OUTSIDE RECORDS SUMMARY | 2023-08-01 17:37 | XMS_ITS | Continuity of Care Document ---
Author Organization [facility] Address [address] [place] [address]- Care Team Providers Care Physical Geographer Name Role Phone Que Lopez MD Primary Care Physician [phone] Encounter [facility] [place] Date(s): 12/19/20 - 01/18/21 [facility] [address] [place] [address]- [place] Allergies, Adverse Reactions, Alerts Substance Reaction [...] 12:56:00 EDT, Inhaler, Route to Pharmacy Electronically, [id number], [facility], 158, cm, 08/06/20 16... Start Date: 08/23/20 Status: Ordered amiodarone 200 mg oral tablet 200 mg, 1, tablet, By Mouth, Daily, # 30 tablet, Refills 5, Tot. Refills 5, Maintenance, 12/23/20 10:54:00 EDT, Route to Pharmacy Electronically, [facility]/pharmacy #[id number], Partial fill upon patient requestif the prescription is for a schedule II opioid jayy... Start Date: 12/23/20 Stop Date: 06/21/21 Status: Ordered amiodarone 200 mg oral tablet 200 mg, 1, tablet, By Mouth, Daily, # 30 tablet, Refills 11, Tot. Refills 11, Maintenance, 01/14/2113:52:00 EDT, Route to Pharmacy Electronically, [facility]/pharmacy #[id number], Partial fill upon patient request if [...] 0 Refills, Maintenance, 12/03/20 18:20:00 EDT, Tablet, [facility], Partial fill upon patient request if... Start Date: 12/03/20 Stop Date: 12/10/20 Status: Ordered amoxicillin 500 mg oral capsule 4 capsule = 2,000 mg, By Mouth, Once, Take 4 capsules by mouth once 1 hour prior to the dental cleaning/procedure, # 4 capsule, 1 Refills, Soft Stop, 01/02/21 11:23:00 EDT, [facility]/pharmacy #[id number], Partial fill upon patient request if the prescription is f... Start Date: 01/02/21 Status: Ordered apixaban 2.5 mg oral tablet 1 tablet = 2.5 mg, By Mouth, 2 times a day, # 60 tablet, 5 Refills, Maintenance, 12/23/20 10:54:00 EDT, Tablet, [facility]/pharmacy #[id number], Partial fill upon patient request if the prescription is for a schedule II opioid drug., 162, cm, 12/05/20 16:12:00 EDT... Start Date: 12/23/20 Stop Date: 06/21/21 Status: Ordered apixaban 2.5 mg oral tablet 1 tablet = 2.5 mg, By Mouth, 2 times a day, # 60 tablet, 3 Refills, Maintenance, 01/02/21 8:16:00 EDT, Tablet, [facility]/pharmacy #[id number], Partial fill upon patient request if the prescription is for a schedule II opioid drug., 162, cm, 12/05/20 16:12:00 EDT,... Start Date: 01/02/21 Stop Date: 05/02/21 Status: Ordered furosemide 40 mg oral tablet 40 mg, 1, tablet, By Mouth, Every other day, START ON 12/02/2020, # 15 tablet, Refills 0, Tot. Refills 0, Maintenance, 12/01/20 15:04:00 EDT, Route to Pharmacy Electronically, [facility], Partial fill upon patient [...] 0 Refills, Maintenance, 11/22/20 12:38:00 EDT, Tablet, [facility], Partial fill upon patient [...]
--- OUTSIDE RECORDS SUMMARY | 2023-08-01 17:37 | XMS_ITS | Continuity of Care Document ---
Author Organization [facility] Address [address] [place] [address]- Care Team Providers Care Pack Out Operator Name Role Phone Que Lopez MD Primary Care Physician [phone] [place] [facility] [place]02[place]22 [facility] [address] [place] [phone]- [place] Allergies, Adverse Reactions, Alerts No Known [...] 12:56:00 EDT, Inhaler, Route to Pharmacy Electronically, [id number], [facility], 158, cm, 08/06/20 16... [...] 1 Refills, Soft Stop, 01/02/21 11:23:00 EDT, [facility]/pharmacy #[id number], Partial fill upon patient request if the prescription is f... Start Date: 01/02/21 Status: Ordered apixaban 2.5 mg oral tablet 1 tablet = 2.5 mg, By Mouth, 2 times a day, # 180 tablet, 1 Refills, Maintenance, 12/03/21 12:32:00EDT, [id number], cm, 01/02/21 10:44:00 EDT, Height, 55, kg, 12/03/20 17:28:00 EDT, Dry Weight Start Date: 12/03/21 Stop Date: 06/01/22 Status: Ordered apixaban 2.5 mg oral tablet 1 tablet = 2.5 mg, By Mouth, 2 times a day, # 60 tablet, 5 Refills, Maintenance, 12/23/20 10:54:00 EDT, [id number] Partial fill upon patient request if the prescription is for a schedule II opioid drug., 162, cm, 12/05/20 16:12:00 EDT... Start Date: 12/23/20 Stop Date: 06/21/21 Status: Ordered furosemide 40 mg oral tablet 40 mg, 1, tablet, By Mouth, Every other day, START ON 12/02/2020, # 15 tablet, Refills 0, Tot. Refills 0, Maintenance, 12/01/20 15:04:00 EDT, Route to Pharmacy Electronically, [facility], Partial fill upon patient request [...] 0 Refills, Maintenance, 11/22/20 12:38:00 EDT, Tablet, [facility], Partial fill upon patient request [...] GERD Confirmed Active Heart failure Confirmed Active Hypertension Confirmed Active Hypothyroidism Confirmed Active Hypothyroidism Confirmed Active Abnormal liver function tests Confirmed Active Pancytopenia Confirmed Active Severe aortic stenosis Confirmed Active Tachycardia Confirmed Active Social History Social History Type Response Smoking Status Never (less than 100 in lifetime) entered on: 08/12/20 Sex Patient Care team information Personnel Name: John VAZQUEZ, Que Lee Address: Address: [address] [place] [address] Drive [address] [place] [id number]
--- OUTSIDE RECORDS SUMMARY | 2023-08-01 17:37 | XMS_ITS | Continuity of Care Document ---
Author Organization [facility] Address [address] [place] [address]- Care Team Providers Care Academic Tutor Name Role Phone Que Lopez MD Primary Care Physician [phone] Encounter [facility] [place] Date(s): 12/29/20 - 01/28/21 [facility] [address] [place] [phone]- [place] Allergies, Adverse Reactions, Alerts Substance Reaction [...] 12:56:00 EDT, Inhaler, Route to Pharmacy Electronically, [id number], [facility], 158, cm, 08/06/20 16... Start Date: 08/23/20 Status: Ordered amiodarone 200 mg oral tablet 200 mg, 1, tablet, By Mouth, Daily, # 30 tablet, Refills 5, Tot. Refills 5, Maintenance, 12/23/20 10:54:00 EDT, Route to Pharmacy Electronically, [facility]/pharmacy #[id number], Partial fill upon patient requestif the prescription is for a schedule II opioid jayy... Start Date: 12/23/20 Stop Date: 06/21/21 Status: Ordered amiodarone 200 mg oral tablet 200 mg, 1, tablet, By Mouth, Daily, # 30 tablet, Refills 11, Tot. Refills 11, Maintenance, 01/14/2113:52:00 EDT, Route to Pharmacy Electronically, [facility]/pharmacy #[id number], Partial fill upon patient request [...] 0 Refills, Maintenance, 12/03/20 18:20:00 EDT, Tablet, [facility], Partial fill upon patient request if... Start Date: 12/03/20 Stop Date: 12/10/20 Status: Ordered amoxicillin 500 mg oral capsule 4 capsule = 2,000 mg, By Mouth, Once, Take 4 capsules by mouth once 1 hour prior to the dental cleaning/procedure, # 4 capsule, 1 Refills, Soft Stop, 01/02/21 11:23:00 EDT, [facility]/pharmacy #[id number], Partial fill upon patient request if the prescription is f... Start Date: 01/02/21 Status: Ordered apixaban 2.5 mg oral tablet 1 tablet = 2.5 mg, By Mouth, 2 times a day, # 60 tablet, 5 Refills, Maintenance, 12/23/20 10:54:00 EDT, Tablet, [facility]/pharmacy #[id number], Partial fill upon patient request if the prescription is for a schedule II opioid drug., 162, cm, 12/05/20 16:12:00 EDT... Start Date: 12/23/20 Stop Date: 06/21/21 Status: Ordered apixaban 2.5 mg oral tablet 1 tablet = 2.5 mg, By Mouth, 2 times a day, # 60 tablet, 3 Refills, Maintenance, 01/02/21 8:16:00 EDT, Tablet, [facility]/pharmacy #[id number], Partial fill upon patient request if the prescription is for a schedule II opioid drug., 162, cm, 12/05/20 16:12:00 EDT,... Start Date: 01/02/21 Stop Date: 05/02/21 Status: Ordered furosemide 40 mg oral tablet 40 mg, 1, tablet, By Mouth, Every other day, START ON 12/02/2020, # 15 tablet, Refills 0, Tot. Refills 0, Maintenance, 12/01/20 15:04:00 EDT, Route to Pharmacy Electronically, [facility], Partial fill upon patient [...] 0 Refills, Maintenance, 11/22/20 12:38:00 EDT, Tablet, [facility], Partial fill upon patient [...]
--- OUTSIDE RECORDS SUMMARY | 2023-08-01 17:37 | XMS_ITS | Continuity of Care Document ---
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, 158, cm, 08/06/20 16... Start Date: 08/23/20 Status: Ordered amoxicillin-clavulanate 875 mg-125 mg oral tablet 1 tablet, By Mouth, 2 times a day, for 3 days, # 6 tablet, 0 Refills, Acute 08/26/20 12:59:00 EDT, 08/23/20 12:59:00 EDT, Tablet, [facility], Partial fill upon patient request if the prescription is for a schedule II opioid drug., 158, c... Start Date: 08/23/20 Stop Date: 08/26/20 Status: Ordered Aspirin Tablet 81 mg, By [...] Date: 10/07/15 Stop Date: 10/01/16 Status: Ordered saccharomyces boulardii lyo 250 mg oral capsule 1 capsule = 250 mg, By Mouth, 2 times a day, for 7 days, # 14 capsule, 0 Refills, Acute 08/30/20 12:56:00 EDT, 08/23/20 12:56:00 EDT, Capsule, [facility], Partial fill upon patient request if the prescription is for a schedule II opioid... Start Date: 08/23/20 Stop Date: 08/30/20 Status: Ordered Tramadol = 50 mg, By [...] Hypothyroidism(Confirmed) Active Abnormal liver function tests(Confirmed) Active Results Orders for Microbiology Reports Name Date Sterile Body Fluid Culture W / Gram Smear (Culture Sterile Body Fluid w/ Gram Smear) 08/20/20 Anaerobic Culture (ANAEROBIC CULTURE) 08/20/20 Anaerobic Culture (ANAEROBIC CULTURE) Sterile Body Fluid Culture W/ Gram Smear 08/15/20 Sputum Culture w/ Gram Smear 08/11/20 Microbiology Reports TEST:Anaerobic Culture STATUS:Unauthenticated BODY SITE: SOURCE:PLEURA COLLECTED DATE/TIME:08/20/20 4:30 PM Anaerobic Culture SPECIMEN DESCRIPTION : PLEURAL FLUID SPECIAL REQUESTS : NONE CULTURE : NO ANAEROBES ISOLATED SO FAR. REPORT STATUS : PRELIMINARY REPORT TEST:Sterile Fluid Culture STATUS:Auth (Verified) BODY SITE: SOURCE:PLEURA COLLECTED DATE/TIME:08/20/20 4:30 PM Sterile Fluid Culture SPECIMEN DESCRIPTION : PLEURAL FLUID SPECIAL REQUESTS : NONE GRAM STAIN : 2+ POLYMORPHONUCLEAR LEUKOCYTES NO ORGANISMS SEEN CULTURE : NO GROWTH 2 DAYS REPORT STATUS : FINAL 08/23/2020 TEST:Anaerobic Culture STATUS:Auth (Verified) BODY SITE: SOURCE:Pleura COLLECTED DATE/TIME:08/15/20 5:20 PM Anaerobic Culture SPECIMEN DESCRIPTION : Pleural fluid, left SPECIAL REQUESTS : NONE CULTURE : NO ANAEROBES ISOLATED REPORT STATUS : FINAL 08/20/2020 TEST:Sterile Fluid Culture STATUS:Auth (Verified) BODY SITE: SOURCE:PLEURA COLLECTED DATE/TIME:08/15/20 5:20 PM Sterile Fluid Culture SPECIMEN DESCRIPTION : PLEURAL FLUID SPECIAL REQUESTS : NONE GRAM STAIN : 1+ WHITE BLOOD CELLS 1+ RBC'S 1+ TISSUE CELLS NO ORGANISMS SEEN CULTURE : NO GROWTH 2 DAYS REPORT STATUS : FINAL 08/18/2020 TEST:Sputum Culture STATUS:Auth (Verified) BODY SITE: SOURCE:EXPECT COLLECTED DATE/TIME:08/12/20 2:58 AM Sputum Culture SPECIMEN DESCRIPTION : EXPECTORATED SPUTUM SPECIAL REQUESTS : NONE GRAM STAIN : 2+ SQ.EPITHELIAL CELLS 2+ GRAM POSITIVE COCCI 1+ GRAM NEGATIVE RODS CULTURE : MICROSCOPIC EXAM SHOWS SQUAMOUS EPITHELIAL CELLS INDICATIVE OF OROPHARYNGEAL CONTAMINATION. PLEASE RECOLLECT APPROPRIATE SPECIMEN FOR CULTURE IF CLINICALLY INDICATED. REPORT STATUS : FINAL 08/12/2020 Radiology Reports * Exam Date Time Procedure Performing Provider Status 08/20/20 5:46 PM Chest Portable Sierra Galindo; Auth (Verified) Notes: (Chest Portable) Reason For Exam: Postop RESULT: Chest Portable Chest Portable Reason: Postop; Clinical Question(s): Postop; Special Instructions: pt is on S2 endo COMPARISON: 08/20/2020 FINDINGS: LINES AND TUBES: Interval removal of left pleural drain. LUNGS AND PLEURA: No significant change in multifocal airspace disease, small right pleural effusion and moderate left pleural effusion. No pneumothorax. HEART, MEDIASTINUM AND CAROL: Heart is normal in size. Normal upper mediastinal and hilar contour. BONES AND SOFT TISSUES: No acute abnormality. Status post median sternotomy. IMPRESSION: Interval removal of left pleural drainage catheter, otherwise no significant change. WSN: [id number] Ordering Physician: Thomas Wheeler Dictated By: Lucien Manuel MD Dictated Date/Time: 08/20/20 5:50 pm Reviewed By: Lucien Manuel MD Signed By: Lucien Manuel MD Signed Date/Time: 08/20/20 5:50 pm Transcribed By: JESSICA Transcribed Date/Time: 08/20/20 5:48 pm * Exam Date Time Procedure Performing Provider Status 08/20/20 12:12 PM Chest Portable Gwyn Valerio h (Verified) Notes: (Chest Portable) Reason For Exam: Other: RESULT: Chest Portable Chest Portable Reason: Other:; Clinical Question(s): Pleural Effusion COMPARISON: 08/19/2020 FINDINGS: Stable left pleural drain. Bilateral pleural-parenchymal disease is stable. IMPRESSION: Stable exam WSN: [id number] Ordering Physician: Mely Monterroso Dictated By: Jeffrey Shaikh MD Dictated Date/Time: 08/20/20 12:35 p Reviewed By: Jeffrey Shaikh MD Signed By: Jeffrey Shaikh MD Signed Date/Time: 08/20/20 12:35 pm Transcribed By: JESSICA Transcribed Date/Time: 08/20/20 12:35 pm * Exam Date Time Procedure Performing Provider Status 08/19/20 8:07 AM Chest Portable Shea Calvert; Auth (Verified) Notes: (Chest Portable) Reason For Exam: Follow-Up Pleural Effusion RESULT: Chest Portable AP semiupright portable chest dated August 19, 2020 at 0755 hours. Comparison films are from August 18 and August 17, 2020. HISTORY: Follow-up pleural effusion. FINDINGS: The cardiac silhouette is increased in size and unchanged. A small bore catheter is present the left lung base. Its position is not significant changed. Opacity at the left lung base consistent with effusion, atelectasis, pneumonia, or any combination is stable. There is a slight increasein airspace infiltrate in the left upper lobe likely atelectasis or pneumonia. On the right, there are some stable patchy infiltrates. A right-sided pleural effusion has increased in size. There is a convex right thoracic scoliosis with associated degenerative changes. The patient is status post median sternotomy. IMPRESSION: Slight interval worsening in bilateral infiltrates consistent with pneumonia. Left-sided chest tube in place. Examination 59046. Thank you for allowing me to participate in the care of this patient. WSN: [id number] Ordering Physician: Adonay De Anda Dictated By: Larry Garcia MD Dictated Date/Time: 08/19/20 8:55 am Reviewed By: Larry Garcia MD Signed By: Larry Garcia MD Signed Date/Time: 08/19/20 8:55 am Transcribed By: JESSICA Transcribed Date/Time: 08/19/20 8:53 am * Exam Date Time Procedure Performing Provider Status 08/18/20 5:08 AM Chest Portable Shonda Mcbride; Aut h (Verified) Notes: (Chest Portable) Reason For Exam: Postop RESULT: Chest Portable Chest Portable performed upright at 4:41 AM Reason: Postop; Clinical Question(s): Pleural Effusion COMPARISON: Multiple prior chest x-rays, the most recent of which is dated 08/17/2020. FINDINGS: LINES AND TUBES: A left pleural catheter is again seen. LUNGS AND PLEURA: No change in small bilateral pleural effusions. Patchy multifocal airspace opacities are again seenin both lungs, not significantly changed. No pneumothorax. HEART, MEDIASTINUM AND CAROL: The patient is status post median sternotomy. The cardiac silhouette is at the upper limit of normal in size with no change in mediastinal contours. BONES AND SOFT TISSUES: No acute abnormality. IMPRESSION: No significant interval change in small bilateral pleural effusions with patchy multifocal airspaceopacities which may reflect areas of atelectasis, pneumonia or asymmetric edema. WSN: [id number] Ordering Physician: Daryn Felix Dictated By: Nakia Tripp MD Dictated Date/Time: 08/18/20 11:33 a Reviewed By: Nakia Tripp MD Signed By: Nakia Tripp MD Signed Date/Time: 08/18/20 11:33 am Transcribed By: JESSICA Transcribed Date/Time: 08/18/20 11:31 am * Exam Date Time Procedure Performing Provider Status 08/17/20 6:03 AM Chest Portable Edwige Jeffers; Auth (V erified) Notes: (Chest Portable) Reason For Exam: Shortness of Breath RESULT: Chest Portable AP upright portable chest dated August 17, 2020 at 0459 hours. Comparison films are from August 16 and August 15, 2020. HISTORY: Follow-up abnormal chest x-ray. Shortness of breath. FINDINGS: The cardiac silhouette is mildly increased in size and unchanged. Mural calcifications are present in the aorta and Airways. There is increased attenuation in the lungs bilaterally. Interstitial and alveolar infiltrates are present in the upper lungs bilaterally and in the mid and lower lung right greater than left. These have increased. There are bilateral pleural effusions which have increased on the right and decreased on the left. A small bore catheter is present at the left lung base. A small left apical pneumothorax has improved now measuring approximate 5 mm in thickness compared with 9 on the previous examination. Degenerative changes are noted in the spine and shoulders. IMPRESSION: Interval improvement in a left pleural effusion with overall worsening of aeration bilaterally. Improving left-sided pneumothorax. Examination [id number]. Thank you for allowing me to participate in the care of this patient. WSN: [id number] Ordering Physician: Adonay De Anda Dictated By: Larry Garcia MD Dictated Date/Time: 08/17/20 9:49 am Reviewed By: Larry Garcia MD Signed By: Larry Garcia MD Signed Date/Time: 08/17/20 9:49 am Transcribed By: JESSICA Transcribed Date/Time: 08/17/20 9:46 am * Exam Date Time Procedure Performing Provider Status 08/16/20 6:10 AM Chest Portable Katlyn Diaz; Aut h (Verified) Notes: (Chest Portable) Reason For Exam: CHEST TUBE PNEUMOTHORAX POST PLACEMENT;Tube Placement RESULT: Chest Portable AP upright portable chest dated August 16, 2020 at 0555 hours. Comparison films are from August 15 and July 20162020. HISTORY: Tube placement. Follow-up pneumothorax. FINDINGS: The cardiac silhouette is at the upper limits of normal for size and unchanged. There is increased attenuation at the left lung base most consistent with effusion. Some associated atelectasis or pneumonia is likely present. A small bore chest tube is present at the left lung base. When compared with the previous examination, the amount of density at the left lung base has increased. Some linear opacity in the left upper lobe likely atelectasis is stable. A left- sided pneumothorax, noted on the previous examination is unchanged. On the right, there is a combination of mild interstitial thickening and a right-sided pleural effusion. Some associated atelectasis or pneumonia cannot be completely excluded. This is not significantly changed and compared with the prior study. Degenerative changes are noted in the spine and shoulders. The patient is status post median sternotomy. IMPRESSION: Slight interval worsening of aeration at the left lung base consistent with effusion, atelectasis, pneumonia, or any combination. Stable left-sided chest tube and pneumothorax. Stable right-sided pleural effusion and interstitial thickening. Examination [id number]. Thank you for allowing me to participate in the care of this patient. WSN: [id number] Ordering Physician: Jeffrey Gunn Dictated By: Larry Garcia MD Dictated Date/Time: 08/16/20 9:07 am Reviewed By: Larry Garcia MD Signed By: Larry Garcia MD Signed Date/Time: 08/16/20 9:07 am Transcribed By: JESSICA Transcribed Date/Time: 08/16/20 9:06 am * Exam Date Time Procedure Performing Provider Status 08/15/20 7:02 PM Chest Portable Rere Garcia (Verified) Notes: (Chest Portable) Reason For Exam: Tube Placement RESULT: Chest Portable Chest Portable AP upright at 6:44 PM REASON: Tube Placement; Clinical Question(s): Tube Placement / Tube Placement COMPARISON: 08/14/2020 FINDINGS: LINES AND TUBES: There is a new left basilar pleural pigtail catheter. LUNGS AND PLEURA: Patchy multifocal bilateral airspace opacity, similar to prior. Bibasilar airspace opacity, likely atelectasis, similar to prior. There are moderate bilateral pleural effusions, similar to prior. New small left apical pneumothorax. HEART, MEDIASTINUM AND CAROL: Unchanged. BONES AND SOFT TISSUES: No acute abnormality. IMPRESSION: New small left apical pneumothorax after left chest tube placement. Otherwise, no significant change. A Red message has been communicated via the [employer] system on 08/15/2020 7:14 PM, Message ID [id number]. WSN: [id number] Ordering Physician: Thomas Wheeler Dictated By: Leopoldo Stein MD Dictated Date/Time: 08/15/20 7:14 pm Reviewed By: Leopoldo Stein MD Signed By: Leopoldo Stein MD Signed Date/Time: 08/15/20 7:14 pm Transcribed By: JESSICA Transcribed Date/Time: 08/15/20 7:12 pm * Exam Date Time Procedure Performing Provider Status 08/14/20 6:57 PM Chest Portable Paola Butler ( Verified) Notes: (Chest Portable) Reason For Exam: Shortness of Breath RESULT: Chest Portable Chest Portable Reason: Shortness of Breath; Clinical Question(s): Pneumonia COMPARISON: 08/11/2020 FINDINGS: LINES AND TUBES: None. LUNGS AND PLEURA: Stable moderate left pleural effusion and underlying parenchymal consolidation. Stable hazy opacityin the right lower lung and small right effusion. Left perihilar infiltrate unchanged. No pulmonaryvascular congestion. HEART, MEDIASTINUM AND CAROL: Heart is normal in size. Stable prominent upper mediastinal and hilar contour. BONES AND SOFT TISSUES: No acute abnormality. Median sternotomy sutures are noted. IMPRESSION: Stable right lateral pleural parenchymal disease. WSN: [id number] Ordering Physician: Adonay De Anda Dictated By: Francoise Villegas MD, I Dictated Date/Time: 08/14/20 7:10 pm Reviewed By: Francoise Villegas MD, I Signed By: Francoise Villegas MD, I Signed Date/Time: 08/14/20 7:10 pm Transcribed By: JESSICA Transcribed Date/Time: 08/14/20 7:08 pm * Exam Date Time Procedure Performing Provider Status 08/11/20 6:05 PM Chest 2 Views Frontal and Lat Becky Henderson; Auth (Verified) Notes: (Chest 2 Views Frontal and Lat) Reason For Exam: Shortness of Breath, Fever;Other: RESULT: Chest 2 Views Frontal and Lat Chest 2 Views Frontal and Lat Hx of Present Illness: pt states SOB X 2 weeks, worse at night. Dyspnea on exertion. States SOB is worse when lying flat.; Reason: Other:; Shortness of Breath, Fever; Clinical Question(s): Pneumonia COMPARISON: 05/03/2015 FINDINGS: LINES AND TUBES: None. LUNGS AND PLEURA: New bilateral patchy airspace opacities are present in the left upper lung, and throughout the right mid to upper lung. There are new bilateral pleural effusions, moderate to large on the left, smallon the right. There is no pneumothorax. HEART, MEDIASTINUM AND CAROL: Heart is normal in size. Status post median sternotomy. Normal upper mediastinal and hilar contour. BONES AND SOFT TISSUES: No acute abnormality. Osteoarthritis of the glenohumeral joints. There are multilevel degenerative changes of the spine. IMPRESSION: Bilateral multifocal airspace opacities. This could represent multifocal pneumonia although neoplastic process cannot be excluded. Bilateral pleural effusions. A [place] message has been communicated via the [employer] system on 08/11/2020 6:13 PM, Message ID [id number]. WSN: [id number] Ordering Physician: Destiny Savage Dictated By: Mary Jo Stahl MD Dictated Date/Time: 08/11/20 6:13 pm Reviewed By: Mary Jo Stahl MD Signed By: Mary Jo Stahl MD Signed Date/Time: 08/11/20 6:13 pm Transcribed By: JSESICA Transcribed Date/Time: 08/11/20 6:10 pm Vital Signs Most recent to oldest [Reference Range]: 1 2 3 Weight 56.7 kg (08/23/20 4:44 AM) 56.9 kg (08/22/20 4:30 AM) 57.3 kg (08/21/20 5:49 AM) Oxygen Saturation [94-100 %] 98 % (08/23/20 11:04 AM) 94 % (08/23/20 7:55 AM) 92 % *L* (08/23/20 4:44 AM) Pulse Rate [55-90 bpm] 89 bpm (08/23/20 11:04 AM) 86 bpm (08/23/20 7:55 AM) 104 bpm *H* (08/23/20 4:44 AM) Blood Pressure [90-138/55-84 mm Hg] 111/48mm Hg (08/23/20 11:04 AM) 93/58mm Hg (08/23/20 7:55 AM) 110/36mm Hg (08/23/20 4:44 AM) Respiratory Rate [16-30 br/min] 18 br/min (08/23/20 11:04 AM) 20 br/min (08/23/20 7:55 AM) 18 br/min (08/23/20 4:44 AM) Temperature [96.8-100.4 DegF] 97.9 DegF (08/23/20 11:04 AM) 97.5 DegF (08/23/20 7:55 AM) 98.3 DegF (08/23/20 4:44 AM) Liters per Minute 1 L/min (08/21/20 4:00 AM) 1 L/min (08/20/20 11:00 PM) 1 L/min (08/20/20 7:00 PM) Mode of Delivery (Oxygen) Room air (08/23/20 11:04 AM) Room air (08/23/20 7:55 AM) Room air (08/23/20 4:44 AM) Blood pressure sites Arm, right (08/23/20 11:04 AM) Arm, left (08/23/20 7:55 AM) Arm, right (08/23/20 4:44 AM) Temperature Route Oral (08/23/20 11:04 AM) Oral (08/23/20 7:55 AM) Oral (08/23/20 4:44 AM) Weight Obtained Via Bed scale (08/23/20 4:44 AM) Bed scale (08/22/20 4:30 AM) Bed scale (08/21/20 5:49 AM) Social History Social History Type Response Smoking Status Never (less than 100 in lifetime) entered on: 08/12/20 Sex
--- OUTSIDE RECORDS SUMMARY | 2023-08-01 17:37 | XMS_ITS | Continuity of Care Document ---
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 Name Role Phone Que Lopez MD Primary Care Physician [phone] Encounter [facility] [place] Date(s): 08/06/20 - 08/13/20 [facility] [address] [place] [address]- Attending Physician: Favio VAZQUEZ, Fab Mina Admitting Physician: Favio VAZQUEZ, Fab Mina Referring Physician: Sukhjinder Johnson MD Allergies, Adverse [...] Hypothyroidism(Confirmed) Active Abnormal liver function tests(Confirmed) Active Vital Signs Most recent to oldest [Reference Range]: 1 Height 158 cm (08/06/20 4:09 PM) Weight 59.42 kg (08/06/20 4:09 PM) Oxygen Saturation [94-100 %] 96 % (08/06/20 4:09 PM) Pulse Rate [55-90 bpm] 57 bpm (08/06/20 4:09 PM) Body Mass Index [18.5-24.99] 23.8 (08/06/20 4:09 PM) Blood Pressure [90-138/55-84 mm Hg] 140/ 60mm Hg *H* (08/06/20 4:09 PM) Blood pressure sites Arm, right (08/06/20 4:09 PM) Weight Obtained Via Patient/family state d (08/06/20 4:09 PM) Social History Social History Type Response Smoking Status Never (less than 100 in lifetime) entered on: 08/12/20 Sex
--- OUTSIDE RECORDS SUMMARY | 2023-08-01 17:37 | XMS_ITS | Continuity of Care Document ---
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 Start Date: [...] 0 Refills, Maintenance, 12/03/20 18:20:00 EDT, Tablet, [facility], Partial fill upon patient request if... Start Date: 12/03/20 Stop Date: 12/10/20 Status: Ordered apixaban 2.5 mg oral tablet 1 tablet = 2.5 mg, By Mouth, 2 times a day, # 60 tablet, 3 Refills, Maintenance, 12/01/20 15:05:00 EDT, Tablet, [facility], Partial fill upon patient [...] EDT, Route to Pharmacy Electronically, [facility], Partial fill upon patient request [...] Maintenance, 11/22/20 12:38:00 EDT, Tablet, [facility], Partial fill upon patient request [...] Active Severe aortic stenosis(Confirmed) Active Tachycardia(Confirmed) Active Results Radiology Reports * Exam Date Time Procedure Performing Provider Status 12/03/20 6:34 PM Chest Portable Hugh Ferraro; Auth (Ve rified) Notes: (Chest Portable) Reason For Exam: Shortness of Breath RESULT: Chest Portable Chest Portable performed upright at 3:04 PM Hx of Present Illness: Pt was in for a Cardioversion for A-fib, sent in by visiting nurse for rapidheart rate; Reason: Shortness of Breath; Clinical Question(s): CHF COMPARISON: Multiple prior chest x-rays, the most recent of which is dated 11/24/2020. FINDINGS: LINES AND TUBES: None. LUNGS AND PLEURA: There are small bilateral pleural effusions and slight interval decrease in the degree of pulmonaryvascular congestion. No focal infiltrate. No pneumothorax. HEART, MEDIASTINUM AND CAROL: The patient is status post median sternotomy and TAVR. Mild calcification is seen in the aortic arch. The cardiac silhouette is normal in size. BONES AND SOFT TISSUES: No acute abnormality. IMPRESSION: Unchanged small bilateral pleural effusions with slight decrease in the degree of pulmonary vascular congestion. WSN: [id number] Ordering Physician: Zoila Munoz Dictated By: Nakia Tripp MD Dictated Date/Time: 12/03/20 6:46 pm Reviewed By: Nakia Tripp MD Signed By: Nakia Tripp MD Signed Date/Time: 12/03/20 6:46 pm Transcribed By: JESSICA Transcribed Date/Time: 12/03/20 6:36 pm Vital Signs Most recent to oldest [Reference Range]: 1 2 3 Weight 55 kg (12/03/20 5:28 PM) 55 kg (12/03/20 2:09 PM) Oxygen Saturation [94-100 %] 100 % (12/03/20:28 PM) 100 % (12/03/20:25 PM) 99 % (12/03/20:09 PM) Pulse Rate [55-90 bpm] 75 bpm (12/03/20:28 PM) 74 bpm (12/03/20:25 PM) 143 bpm *H* (12/03/20 2:09 PM) Blood Pressure [90-138/55-84 mm Hg] 100/37mm Hg (12/03/20:28 PM) 100/41mm Hg (12/03/20:25 PM) 118/51mm Hg (12/03/20:09 PM) Respiratory Rate [16-30 br/min] 18 br/min (12/03/20:28 PM) 17 br/min (12/03/20:25 PM) 19 br/min (12/03/20:09 PM) Temperature [96.8-100.4 DegF] 100 DegF (12/03/20:25 PM) 98.4 DegF (12/03/20 2:09 PM) Mode of Delivery (Oxygen) Room air (12/03/20 5:28 PM) Room air (12/03/20 5:25 PM) Room air (12/03/20 2:09 PM) Blood pressure sites Arm, right (12/03/20 5:28 PM) Arm, left (12/03/20 5:25 PM) Arm, left (12/03/20 2:09 PM) Temperature Route Oral (12/03/20 5:25 PM) Oral (12/03/20 2:09 PM) Dry Weight 55 kg (12/03/20 5:28 PM) 55 kg (12/03/20 2:09 PM) Weight Obtained Via Patient/family state d (12/03/20 2:09 PM) Social History Social History Type Response Smoking Status Never (less than 100 in lifetime) entered on: 08/12/20 Sex
--- OUTSIDE RECORDS SUMMARY | 2023-08-01 17:37 | XMS_ITS | Continuity of Care Document ---
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 Start Date: 08/23/20 Status: Ordered amiodarone 200 mg oral tablet 200 mg, 1, tablet, By Mouth, Daily, # 30 tablet, Refills 5, Tot. Refills 5, Maintenance, 12/23/20 10:54:00 EDT, Route to Pharmacy Electronically, [facility]/pharmacy #[id number], Partial fill upon patient requestif the prescription is for a schedule II opioid jayy... Start Date: 12/23/20 Stop Date: 06/21/21 Status: Ordered amiodarone 200 mg oral tablet 200 mg, 1, tablet, By Mouth, Daily, # 30 tablet, Refills 11, Tot. Refills 11, Maintenance, 01/14/2113:52:00 EDT, Route to Pharmacy Electronically, [facility]/pharmacy #[id number], Partial fill upon patient request [...] 0 Refills, Maintenance, 12/03/20 18:20:00 EDT, Tablet, [facility], Partial fill upon patient request if... Start Date: 12/03/20 Stop Date: 12/10/20 Status: Ordered amoxicillin 500 mg oral capsule 4 capsule = 2,000 mg, By Mouth, Once, Take 4 capsules by mouth once 1 hour prior to the dental cleaning/procedure, # 4 capsule, 1 Refills, Soft Stop, 01/02/21 11:23:00 EDT, [facility]/pharmacy #[id number], Partial fill upon patient request if the prescription is f... Start Date: 01/02/21 Status: Ordered apixaban 2.5 mg oral tablet 1 tablet = 2.5 mg, By Mouth, 2 times a day, # 60 tablet, 5 Refills, Maintenance, 03/24/21 10:50:00 EST, Tablet, [facility]/pharmacy #[id number], 162, cm, 01/02/21 10:44:00 EDT, Height, 55, kg, 12/03/20 17:28:00 EDT, Dry Weight Start Date: 03/24/21 Stop Date: 09/20/21 Status: Ordered apixaban 2.5 mg oral tablet 1 tablet = 2.5 mg, By Mouth, 2 times a day, # 60 tablet, 5 Refills, Maintenance, 12/23/20 10:54:00 EDT, Tablet, [facility]/pharmacy #[id number], Partial fill upon patient request [...] Route to Pharmacy Electronically, [facility], Partial fill upon patient [...] 0 Refills, Maintenance, 11/22/20 12:38:00 EDT, Tablet, [facility], Partial fill upon patient [...]
--- OUTSIDE RECORDS SUMMARY | 2023-08-01 17:37 | XMS_ITS | Continuity of Care Document ---
Author Organization [facility] Address [address] [place] [address]- Care Team Providers Care Measurement Superintendent Name Role Phone Que Lopez MD Primary Care Physician [phone] Encounter [facility] [place]CT R [id number] Date(s): 02/18/23 - 03/20/23 [facility] [address] [place] [address]- Attending Physician: Bryanna Mcgowan Admitting Physician: Bryanna Mcgowan Referring Physician: Bryanna Mcgowan Allergies, Adverse Reactions, Alerts No Known Allergies Immunizations Given and Recorded Vaccine Date Status Refusal Reason pneumococcal 23-valent vaccine 1 10/22/13 Given 1Early/Late Reason: Other : Medications albuterol CFC free 90 mcg/inh inhalation aerosol 180 mcg, 2, puffs, Inhalation, Every 4 hours, PRN, # 1 each, Refills 0, Tot. Refills 0, Maintenance, 08/23/20 12:56:00 EDT, Inhaler, Route to Pharmacy Electronically, [id number], [facility], 158, , 08/06/20 16... Start Date: 08/23/20 Status: Ordered amiodarone 200 mg oral tablet 0.5 tablets, By Mouth, Daily, Take 1/2 tablet by mouth daily, # 15 tablet, Refills 5, Tot. Refills 5, Maintenance, 12/30/22 7:22:00 EDT, Route to Pharmacy Electronically, [facility]/pharmacy #[id number], Partial fill upon patient request if the prescription is for... Start Date: 12/30/22 Status: Ordered amoxicillin 500 mg oral capsule 4 capsule = 2,000 mg, By Mouth, Once, Take 4 capsules by mouth once 1 hour prior to the dental cleaning/procedure, # 4 capsule, 1 Refills, Soft Stop, 01/02/21 11:23:00 EDT[id number] fill upon patient request if the prescription is f... Start Date: 01/02/21 Status: Ordered apixaban 2.5 mg oral tablet 1 tablet = 2.5 mg, By Mouth, 2 times a day, # 60 tablet, 5 Refills, Maintenance, 12/23/20 10:54:00 EDT, Tablet[id number] Partial fill upon patient request if the prescription is for a schedule II opioid drug., 162, cm, 12/05/20 16:12:00 EDT... Start Date: 12/23/20 Stop Date: 06/21/21 Status: Ordered apixaban 2.5 mg oral tablet 1 tablet = 2.5 mg, By Mouth, 2 times a day, # 180 tablet, 3 Refills, Maintenance, 07/21/22 12:47:00EDT, Tablet[id number], cm, 07/16/22 11:33:00 EDT, Height, 55, kg, 12/03/20 17:28:00 EDT, Dry Weight Start Date: 07/21/22 Stop Date: 07/16/23 Status: Ordered furosemide 40 mg oral tablet 40 mg, 1, tablet, By Mouth, Every other day, START ON 12/02/2020, # 15 tablet, Refills 0, Tot. Refills 0, Maintenance, 12/01/20 15:04:00 EDT, Route to Pharmacy Electronically, [facility], Partial fill upon patient request if [...] 0 Refills, Maintenance, 11/22/20 12:38:00 EDT, Tablet, [facility] 3, Partial fill upon patient request if [...] 100 in lifetime) entered on: 08/12/20 Sex Cardiology * Event Display: Cardiology Office Note, Non- Authored Date: * Event Display: Non Cardiovascular Results Authored Date: * Event Display: Non Cardiovascular Results Authored Date: Laboratory * Event Display: Non Lab Results Authored Date: * Event Display: Non Lab Results Authored Date: Patient Care team information Care Team Personnel Name: Que Lopez MD Position: Reference Physician Member Role: PCP Address: Address: [address] [place] [address] Drive [address] [place] [address]- Name: Waleska Corrales RN Position: S RN Member Role: Primary Care Nurse Name: Jackie Purcell NP Position: [facility] PCO Associate Professional Member Role: Primary Care Nurse Address: Address: [address] [place] [address]- Name: Haim Manuel RN Position: [facility] ED RN W/OE and Tasks Member Role: Primary Care Nurse Name: Marco Antonio Chavez RN Position: [facility] RN Member Role: Primary Care Nurse Name: Claudine Nolan RN Position: [facility] RN Member Role: Primary Care Nurse Name: Brenna Chavez RN Position: [facility] RN Member Role: Primary Care Nurse Name: Tori Rosas RN Position: [facility] AMB Nurse Member Role: Primary Care Nurse Name: Clarice Celeste RN Position: [facility] RN Member Role: Primary Care Nurse Name: Kassandra Mauricio RN Position: [facility] RN Supv Member Role: Primary Care Nurse Name: Jany Welsh RN Position: [facility] RN Member Role: Primary Care Nurse Care Team Related Persons Name: JUNI ZALDIVAR Address: home [address] [place] [address] Name: ZOHAIB BASSAM Address: home [address]
--- OUTSIDE RECORDS SUMMARY | 2023-08-01 17:37 | XMS_ITS | Continuity of Care Document ---
Author Organization [facility] ter Address [address] [place] [address]- Care Team Providers Care Licensed Nurse Practitioner Name Role Phone Que Lopez MD Primary Care Physician Encounter [facility] [place] Date(s): 11/24/20 - 12/01/[address] [address]- Encounter Diagnosis Atrial flutter(Final) - 11/24/20 Discharge Disposition: A-Transfer VNA/Home Health Attending Physician: Antonio VAZQUEZ, Shani Admitting Physician: Carly Damon MD Referring Physician: Not on Staff, Referring [...] 12:56:00 EDT, Inhaler, Route to Pharmacy Electronically, [id number], [facility], 158, cm, 08/06/20 16... Start Date: 08/23/20 Status: Ordered amiodarone 200 mg oral tablet 200 mg, 1, tablet, By Mouth, Daily, # 30 tablet, Refills 1, Tot. Refills 1, Maintenance, 12/01/20 15:04:00 EDT, Route to Pharmacy Electronically, [facility], Partial fill upon patient request if the prescription is for a schedule II opio... Start Date: 12/01/20 Stop Date: 01/30/21 Status: Ordered apixaban 2.5 mg oral tablet 1 tablet = 2.5 mg, By Mouth, 2 times a day, # 60 tablet, 3 Refills, Maintenance, 12/01/20 15:05:00 EDT, Tablet, [facility], Partial fill upon patient request if the prescription is for a schedule II opioid drug., 162, cm, 12/01/20 13:28:... Start Date: 12/01/20 Stop Date: 03/31/21 Status: Ordered furosemide 40 mg oral tablet 40 mg, 1, tablet, By Mouth, Every other day, START ON 12/02/2020, # 15 tablet, Refills 0, Tot. Refills 0, Maintenance, 12/01/20 15:04:00 EDT, Route to Pharmacy Electronically, [facility], Partial fill upon patient [...] 0 Refills, Maintenance, 11/22/20 12:38:00 EDT, Tablet, [facility], Partial fill upon patient request if the prescription is for a schedule II opioid drug., 162, cm, 11/22/20 12:21:00 EDT, H... Start Date: 11/22/20 Status: Ordered midodrine 5 mg oral tablet 2.5 mg, Tablet, By Mouth, Hold for: IF BP >100/60, 12/01/20 9:00:00 EDT Start Date: 12/01/20 Stop Date: 12/01/20 Status: Completed omeprazole 20 mg oral enteric coated capsule [...] Severe aortic stenosis(Confirmed) Active Tachycardia(Confirmed) Active Results Orders for Microbiology Reports Name Date Urine Culture (URINE CULTURE) 11/25/20 Microbiology Reports TEST:Urine Culture STATUS:Auth (Verified) BODY SITE: SOURCE:URINE COLLECTED DATE/TIME:11/25/20 10:58 AM Urine Culture SPECIMEN DESCRIPTION : URINE SPECIAL REQUESTS : NONE CULTURE : Mixed bacterial femi, indicative of urogenital contamination. REPORT STATUS : FINAL 11/26/2020 Radiology Reports * Exam Date Time Procedure Performing Provider Status 11/24/20 3:52 PM Chest Portable Santiago Espinoza; Auth ( Verified) Notes: (Chest Portable) Reason For Exam: CHF RESULT: Chest Portable Chest Portable INDICATION/CLINICAL QUESTION: Recent TAVR procedure. History aortic dissection with repair 2019. Tachycardia. Recent treatment for multifocal pneumonia. TECHNIQUE: AP chest 1545 hours 11/24/2020. COMPARISON: 11/22/2020. FINDINGS: LINES AND TUBES: TAVR prosthesis.. LUNGS AND PLEURA: RIGHT CHEST: Small patchy opacity is upper and mid lung. Small amount of consolidation and effusion at the base. The appearance is unchanged.. LEFT CHEST: Small patchy opacities within the chest. Small left consolidation and effusion at the base. This improved at the left base since the prior exam and unchanged elsewhere.. HEART AND MEDIASTINAL CONTOURS: Normal. BONES AND SOFT TISSUES: No acute abnormality.. IMPRESSION: 1. Pulmonary and pleural disease as noted above improved at the left base and otherwise unchanged since 11/22/2020. 2. No new abnormality. WSN: [id number] Ordering Physician: Margarita Sandoval Dictated By: Dread Hilliard MD Dictated Date/Time: 11/24/20 4:17 pm Reviewed By: Dread Hilliard MD Signed By: Dread Hilliard MD Signed Date/Time: 11/24/20 4:17 pm Transcribed By: JESSICA Transcribed Date/Time: 11/24/20 4:12 pm Vital Signs Most recent to oldest [Reference Range]: 1 2 3 Height 162 cm (12/01/20 1:28 PM) 162 cm (12/01/20 8:47 AM) 162 cm (12/01/20 2:19 AM) Weight 55.1 kg (12/01/20 6:23 AM) 55.2 kg (11/30/20 4:00 PM) 54.8 kg (11/30/20 4:11 AM) Oxygen Saturation [94-100 %] 98 % (12/01/20 1:28 PM) 95 % (12/01/20 8:47 AM) 98 % (12/01/20 2:19 AM) Pulse Rate [55-90 bpm] 77 bpm (12/01/20 1:28 PM) 76 bpm (12/01/20 8:47 AM) 79 bpm (12/01/20 8:14 AM) Body Mass Index [18.5-24.99] 20.88 (11/30/20 4:11 AM) 20.5 (11/24/20 7:02 PM) Blood Pressure [90-138/55-84 mm Hg] 127/46mm Hg (12/01/20 1:28 PM) 134/48mm Hg (12/01/20 8:14 AM) 126/41mm Hg (12/01/20 2:19 AM) Respiratory Rate [16-30 br/min] 18 br/min (12/01/20 1:28 PM) 18 br/min (12/01/20 8:47 AM) 18 br/min (12/01/20 2:19 AM) Temperature [96.8-100.4 DegF] 98.9 DegF (12/01/20 1:28 PM) 98.0 DegF (12/01/20 8:47 AM) 98.6 DegF (12/01/20 2:19 AM) Liters per Minute 2 L/min (11/28/20 5:49 PM) 2 L/min (11/28/20 4:43 PM) 2 L/min (11/28/20 11:47 AM) Mode of Delivery (Oxygen) Room air (12/01/20 1:28 PM) Room air (12/01/20 8:47 AM) Room air (12/01/20 2:19 AM) Blood pressure sites Arm, left (12/01/20 1:28 PM) Arm, left (12/01/20 2:19 AM) Arm, left (11/30/20 8:08 PM) Temperature Route Temporal (12/01/20 1:28 PM) Temporal (12/01/20 8:47 AM) Temporal (12/01/20 2:19 AM) Dry Weight 54.4 kg (11/24/20 7:02 PM) Weight Obtained Via Bed scale (12/01/20 6:23 AM) Bed scale (11/30/20 4:00 PM) Bed scale (11/24/20 6:14 PM) Social History Social History Type Response Smoking Status Never (less than 100 in lifetime) entered on: 08/12/20 Sex
--- OUTSIDE RECORDS SUMMARY | 2023-08-01 17:37 | XMS_ITS | Continuity of Care Document ---
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 Start Date: 08/23/20 Status: Ordered amiodarone 200 mg oral tablet 200 mg, 1, tablet, By Mouth, Daily, # 30 tablet, Refills 5, Tot. Refills 5, Maintenance, 12/23/20 10:54:00 EDT, Route to Pharmacy Electronically, [facility]/pharmacy #[id number], Partial fill upon patient requestif the prescription is for a schedule II opioid jayy... Start Date: 12/23/20 Stop Date: 06/21/21 Status: Ordered amiodarone 200 mg oral tablet 200 mg, 1, tablet, By Mouth, Daily, # 30 tablet, Refills 11, Tot. Refills 11, Maintenance, 01/14/2113:52:00 EDT, Route to Pharmacy Electronically, [facility]/pharmacy #[id number], Partial fill upon patient request [...] 0 Refills, Maintenance, 12/03/20 18:20:00 EDT, Tablet, [facility], Partial fill upon patient request if... Start Date: 12/03/20 Stop Date: 12/10/20 Status: Ordered amoxicillin 500 mg oral capsule 4 capsule = 2,000 mg, By Mouth, Once, Take 4 capsules by mouth once 1 hour prior to the dental cleaning/procedure, # 4 capsule, 1 Refills, Soft Stop, 01/02/21 11:23:00 EDT, [facility]/pharmacy #[id number], Partial fill upon patient request if the prescription is f... Start Date: 01/02/21 Status: Ordered apixaban 2.5 mg oral tablet 1 tablet = 2.5 mg, By Mouth, 2 times a day, # 60 tablet, 5 Refills, Maintenance, 12/23/20 10:54:00 EDT, Tablet, [facility]/pharmacy #[id number], Partial fill upon patient request if the prescription is for a schedule II opioid drug., 162, cm, 12/05/20 16:12:00 EDT... Start Date: 12/23/20 Stop Date: 06/21/21 Status: Ordered apixaban 2.5 mg oral tablet 1 tablet = 2.5 mg, By Mouth, 2 times a day, # 60 tablet, 3 Refills, Maintenance, 01/02/21 8:16:00 EDT, Tablet, [facility]/pharmacy #[id number], Partial fill upon patient request if the prescription is for a schedule II opioid drug., 162, cm, 12/05/20 16:12:00 EDT,... Start Date: 01/02/21 Stop Date: 05/02/21 Status: Ordered furosemide 40 mg oral tablet 40 mg, 1, tablet, By Mouth, Every other day, START ON 12/02/2020, # 15 tablet, Refills 0, Tot. Refills 0, Maintenance, 12/01/20 15:04:00 EDT, Route to Pharmacy Electronically, [facility], Partial fill upon patient [...] 0 Refills, Maintenance, 11/22/20 12:38:00 EDT, Tablet, [facility], Partial fill upon patient [...]
--- OUTSIDE RECORDS SUMMARY | 2023-08-01 17:37 | XMS_ITS | Continuity of Care Document ---
Author Organization [facility] Address [address] [place] [address]- Care Team Providers Care Food Cooking Machine Operator Name Role Phone Que Lopez MD Primary Care Physician En[place] [facility](s): 11/14/20 - 12/14/20 [facility] [address] [place] [address]- [place] Allergies, Adverse Reactions, Alerts Substance Reaction [...] 12:56:00 EDT, Inhaler, Route to Pharmacy Electronically, [id number], [facility], 158, cm, 08/06/20 [...] 0 Refills, Maintenance, 12/03/20 18:20:00 EDT, Tablet, [facility], Partial fill upon patient request if... Start Date: 12/03/20 Stop Date: 12/10/20 Status: Ordered apixaban 2.5 mg oral tablet 1 tablet = 2.5 mg, By Mouth, 2 times a day, # 60 tablet, 3 Refills, Maintenance, 12/01/20 15:05:00 EDT, Tablet, [facility], Partial fill upon patient request if the prescription is for a schedule II opioid drug., 162, cm, 12/01/20 13:28:... Start Date: 12/01/20 Stop Date: 03/31/21 Status: Ordered furosemide 40 mg oral tablet 40 mg, 1, tablet, By Mouth, Every other day, START ON 12/02/2020, # 15 tablet, Refills 0, Tot. Refills 0, Maintenance, 12/01/20 15:04:00 EDT, Route to Pharmacy Electronically, [facility], Partial fill upon patient [...] 0 Refills, Maintenance, 11/22/20 12:38:00 EDT, Tablet, [facility], Partial fill upon patient request [...]
--- OUTSIDE RECORDS SUMMARY | 2023-08-01 17:37 | XMS_ITS | Continuity of Care Document ---
Author Organization [facility] Address [address] [place] [address]- Care Team Providers Care Outpatient Pharmacy Manager Name Role Phone Que Lopez MD Primary Care Physician [phone] Encounter [facility] Date(s): 07/15/20 - 08/14/20 [facility] [address] [place], [place] [address] Allergies, Adverse Reactions, Alerts Substance Reaction Severity [...]
--- OUTSIDE RECORDS SUMMARY | 2023-08-01 17:37 | XMS_ITS | Continuity of Care Document ---
Author Organization [facility] Address [address] [place] [address]- Care Team Providers Care Veterinary Laboratory Technician Name Role Phone Que Lopez MD Primary Care Physician [phone] [place] [facility] [place](s[place] 11/14/20 - 01/04/21 [facility] [address] [place] [address]- Attending Physician: Chadd VAZQUEZ, Ashequshmuel Admitting Physician: Chadd VAZQUEZ, Zoila Referring Physician: Que Lopez MD Allergies, Adverse [...] 12:56:00 EDT, Inhaler, Route to Pharmacy Electronically, [id number], [facility], 158, , 08/06/20 16... Start Date: 08/23/20 Status: Ordered amiodarone 200 mg oral tablet 200 mg, 1, tablet, By Mouth, Daily, # 30 tablet, Refills 5, Tot. Refills 5, Maintenance, 12/23/20 10:54:00 EDT, Route to Pharmacy Electronically, [facility]/pharmacy #[id number], Partial fill upon patient requestif the prescription is for a schedule II opioid jayy... Start Date: 12/23/20 Stop Date: 4/3/22 Status: Ordered amiodarone 200 mg oral tablet 200 mg, 1, tablet, By Mouth, Daily, # 30 tablet, Refills 0, Tot. Refills 0, Maintenance, 01/02/21 8:16:00 EDT, Route to Pharmacy Electronically, [facility]/pharmacy #[id number], Partial fill upon patient request [...] 0 Refills, Maintenance, 12/03/20 18:20:00 EDT, Tablet, [facility], Partial fill upon patient request if... Start Date: 12/03/20 Stop Date: 12/10/20 Status: Ordered amoxicillin 500 mg oral capsule 4 capsule = 2,000 mg, By Mouth, Once, Take 4 capsules by mouth once 1 hour prior to the dental cleaning/procedure, # 4 capsule, 1 Refills, Soft Stop, 01/02/21 11:23:00 EDT, [facility]/pharmacy #[id number], Partial fill upon patient request if the prescription is f... Start Date: 01/02/21 Status: Ordered apixaban 2.5 mg oral tablet 1 tablet = 2.5 mg, By Mouth, 2 times a day, # 60 tablet, 5 Refills, Maintenance, 12/23/20 10:54:00 EDT, Tablet, [facility]/pharmacy #[id number], Partial fill upon patient request if the prescription is for a schedule II opioid drug., 162, cm, 12/05/20 16:12:00 EDT... Start Date: 12/23/20 Stop Date: 06/21/21 Status: Ordered apixaban 2.5 mg oral tablet 1 tablet = 2.5 mg, By Mouth, 2 times a day, # 60 tablet, 3 Refills, Maintenance, 01/02/21 8:16:00 EDT, Tablet, [facility]/pharmacy #[id number], Partial fill upon patient request if the prescription is for a schedule II opioid drug., 162, cm, 12/05/20 16:12:00 EDT,... Start Date: 01/02/21 Stop Date: 05/02/21 Status: Ordered furosemide 40 mg oral tablet 40 mg, 1, tablet, By Mouth, Every other day, START ON 12/02/2020, # 15 tablet, Refills 0, Tot. Refills 0, Maintenance, 12/01/20 15:04:00 EDT, Route to Pharmacy Electronically, [facility], Partial fill upon patient [...] 0 Refills, Maintenance, 11/22/20 12:38:00 EDT, Tablet, [facility], Partial fill upon patient request [...] Active Severe aortic stenosis(Confirmed) Active Tachycardia(Confirmed) Active Procedures Procedure Date Related Diagnosis Body Site Status Transcatheter aortic valve implantation Completed Social History Social History Type Response Smoking Status Never (less than 100 in lifetime) entered on: 08/12/20 Sex
--- OUTSIDE RECORDS SUMMARY | 2023-08-01 17:37 | XMS_ITS | Continuity of Care Document ---
Author Organization [facility] Address [address] [place] [address]- Care Team Providers Care Client Application Support Engineer Name Role Phone Que Lopez MD Primary Care Physician [phone] Encounter [facility] [place] Date(s): 11/21/20 - 11/22/[address] [address] Discharge Disposition: A-D/C Home Attending Physician: Marcell Hernández MD Admitting Physician: Marcell Hernández MD Referring Physician: Chadd VAZQUEZ, [facility]el Allergies, Adverse Reactions, Alerts Substance Reaction Severity [...] 12:56:00 EDT, Inhaler, Route to Pharmacy Electronically, [id number], [facility], 158, cm, 08/06/20 16... Start Date: 08/23/20 Status: Ordered amLODIPine 2.5 mg oral tablet 1 tablet = 2.5 mg, By Mouth, Daily, Maintenance, 11/21/20 16:27:00 EDT, Tablet, ; Start Date: 11/21/20 Status: Ordered aspirin 81 mg oral delayed release tablet 81 mg, 1, tablet, By Mouth, Daily, Maintenance, 11/21/20 16:24:00 EDT, ; Start Date: 11/21/20 Status: Ordered clopidogrel 75 mg oral tablet 75 mg, 1, tablet, By Mouth, Daily, # 30 tablet, Refills 0, Tot. Refills 0, Maintenance, 11/22/20 12:38:00 EDT, Route to Pharmacy Electronically, [facility], Partial fill upon patient request if the prescription is for a schedule II opioi... Start Date: 11/22/20 Status: Ordered furosemide 40 mg oral tablet 40 mg, 1, tablet, By Mouth, Daily, Refills 0, Maintenance, 08/12/20 0:19:00 EDT, Partial [...] 0 Refills, Maintenance, 11/22/20 12:38:00 EDT, Tablet, [facility], Partial fill upon patient request if the prescription is for a schedule II opioid drug., 162, cm, 11/22/20 12:21:00 EDT, H... Start Date: 11/22/20 Status: Ordered metoprolol 25 mg oral tablet 25 mg, Tablet, By Mouth, 11/22/20 9:00:00 EDT Start Date: 11/22/20 Stop Date: 11/22/20 Status: Completed metoprolol 25 mg oral tablet 25 mg, 1, tablet, By Mouth, Daily, Refills 0, Maintenance, 02/01/20 13:27:00 EST, Partial fill uponpatient request Start Date: 02/01/20 Status: Ordered omeprazole 20 mg oral enteric coated capsule 1 capsule = 20 mg, By Mouth, Daily, # 90 capsule, 3 Refills, Maintenance, 10/07/15 8:57:18 Start Date: 10/07/15 Stop Date: 10/01/16 Status: Ordered potassium chloride 20 mEq oral powder for reconstitution 1 pack/packet, By Mouth, Daily, Maintenance, 11/21/20 16:23:00 EDT, REC Powder, ; Start Date: 11/21/20 Status: Ordered traMADol 50 mg oral tablet 1 tablet = 50 mg, By Mouth, Daily, PRN as needed for pain, Maintenance, 11/21/20 [...] function tests(Confirmed) Active Severe aortic stenosis(Confirmed) Active Results Radiology Reports * Exam Date Time Procedure Performing Provider Status 11/22/20 7:21 AM Chest Portable Fara Zavala; Auth (Ve rified) Notes: (Chest Portable) Reason For Exam: S/P TAVR;Postop RESULT: Chest Portable Chest Portable REASON: Postop; S P TAVR; Clinical Question(s): Other:; Cardiac Tamponade / Other: COMPARISON: 11/21/2020 FINDINGS: LINES AND TUBES: None. LUNGS AND PLEURA: The central pulmonary vasculature is prominent and indistinct. Persistent multifocal bilateral airspace opacity and bibasilar atelectasis. Small bilateral pleural effusions, similar to prior. No pneumothorax. HEART, MEDIASTINUM AND CAROL: Unchanged. BONES AND SOFT TISSUES: No acute abnormality. Status-post median sternotomy. IMPRESSION: No significant change. WSN: [id number] Ordering Physician: Clayton Whitaker Dictated By: Leopoldo Stein MD Dictated Date/Time: 11/22/20 12:23 p Reviewed By: Leopoldo Stein MD Signed By: Leopoldo Stein MD Signed Date/Time: 11/22/20 12:23 pm Transcribed By: JESSICA Transcribed Date/Time: 11/22/20 12:22 pm * Exam Date Time Procedure Performing Provider Status 11/21/20 11:24 AM Chest Portable Beth Patel; Gary (Verified) Notes: (Chest Portable) Reason For Exam: S/P TAVR;Postop RESULT: Chest Portable Chest Portable REASON: Postop; S P TAVR; Clinical Question(s): Cardiac Tamponade COMPARISON: Multiple priors, most recent 08/20/2020. CT chest 08/11/2020. FINDINGS: LINES AND TUBES: None. LUNGS AND PLEURA: Indistinct, prominent central pulmonary vasculature. Unchanged bilateral patchy parenchymal opacities. Bilateral small pleural effusions with associated bibasilar atelectasis. No pneumothorax. HEART, MEDIASTINUM AND CAROL: Heart is normal in size. Status post TAVR. Aorta is mildly calcified. BONES AND SOFT TISSUES: Status post median sternotomy. IMPRESSION: Mild pulmonary vascular congestion with bilateral small pleural effusions. Unchanged patchy parenchymal disease, better characterized on prior CT 08/11/2020. I have personally reviewed the images and I agree with this report. WSN: [id number] Ordering Physician: Clayton Whitaker Dictated By: Gisel Otoole DO Dictated Date/Time: 11/21/20 2:01 pm Reviewed By: Nathan De Souza MD Signed By: Nathan De Souza MD Signed Date/Time: 11/21/20 2:06 pm Transcribed By: JESSICA Transcribed Date/Time: 11/21/20 1:25 pm Vital Signs Most recent to oldest [Reference Range]: 1 2 3 Height 162 cm (11/22/20 12:21 PM) 162 cm (11/22/20 8:19 AM) 162 cm (11/22/20 3:58 AM) Weight 58.6 kg (11/22/20 4:05 AM) 58.6 kg (11/22/20 3:58 AM) 54.4 kg (11/21/20 6:00 AM) Oxygen Saturation [94-100 %] 99 % (11/22/20 12:21 PM) 96 % (11/22/20 8:19 AM) 99 % (11/22/20 3:58 AM) Pulse Rate [55-90 bpm] 77 bpm (11/22/20 12:21 PM) 87 bpm (11/22/20 10:13 AM) 87 bpm (11/22/20 8:19 AM) Body Mass Index [18.5-24.99] 22.33 (11/22/20 3:58 AM) 20.73 (11/21/20 6:00 AM) Blood Pressure [90-138/55-84 mm Hg] 118/38mm Hg (11/22/20 12:21 PM) 123/40mm Hg (11/22/20 10:13 AM) 123/40mm Hg (11/22/20 8:19 AM) Respiratory Rate [16-30 br/min] 18 br/min (11/22/20 12:21 PM) 18 br/min (11/22/20 8:19 AM) 18 br/min (11/22/20 3:58 AM) Temperature [96.8-100.4 DegF] 98.2 DegF (11/22/20 12: PM) 98.8 DegF (11/22/20 8:19 AM) 99.4 DegF (11/22/20 3:58 AM) Mode of Delivery (Oxygen) Room air (11/22/20 12:21 PM) Room air (11/22/20 8:19 AM) Room air (11/22/20 3:58 AM) Blood pressure sites Arm, left (11/22/20 12:21 PM) Arm, left (11/22/20 8:19 AM) Arm, left (11/22/20 3:58 AM) Temperature Route Oral (11/22/20 12:21 PM) Oral (11/22/20 8:19 AM) Oral (11/22/20 3:58 AM) Dry Weight 54.4 kg (11/21/20 6:00 AM) 54.4 kg (11/21/20 5:38 AM) Weight Obtained Via Bed scale (11/22/20 4:05 AM) Bed scale (11/22/20 3:58 AM) Standing scale (11/21/20 6:00 AM) Dry Weight Obtained Via Standing scale (11/21/20 6:00 AM) Standing scale (11/21/20 5:38 AM) Social History Social History Type Response Smoking Status Never (less than 100 in lifetime) entered on: 08/12/20 Sex
--- OUTSIDE RECORDS SUMMARY | 2023-08-01 17:37 | XMS_ITS | Continuity of Care Document ---
Author Organization [facility] Address [address] [place] [address]- Care Team Providers Care Web Operations Specialist Name Role Phone Que Lopze MD Primary Care Physician [phone] Encounter [facility] [place] Date(s): 12/23/20 - 01/22/21 [facility] [address] [place] [address]- [place] Allergies, Adverse Reactions, Alerts Substance Reaction [...] 12:56:00 EDT, Inhaler, Route to Pharmacy Electronically, [id number], [facility], 158, cm, 08/06/20 16... Start Date: 08/23/20 Status: Ordered amiodarone 200 mg oral tablet 200 mg, 1, tablet, By Mouth, Daily, # 30 tablet, Refills 5, Tot. Refills 5, Maintenance, 12/23/20 10:54:00 EDT, Route to Pharmacy Electronically, [facility]/pharmacy #[id number], Partial fill upon patient requestif the prescription is for a schedule II opioid jayy... Start Date: 12/23/20 Stop Date: 06/21/21 Status: Ordered amiodarone 200 mg oral tablet 200 mg, 1, tablet, By Mouth, Daily, # 30 tablet, Refills 11, Tot. Refills 11, Maintenance, 01/14/2113:52:00 EDT, Route to Pharmacy Electronically, [facility]/pharmacy #[id number], Partial fill upon patient [...] 0 Refills, Maintenance, 12/03/20 18:20:00 EDT, Tablet, [facility], Partial fill upon patient request if... Start Date: 12/03/20 Stop Date: 12/10/20 Status: Ordered amoxicillin 500 mg oral capsule 4 capsule = 2,000 mg, By Mouth, Once, Take 4 capsules by mouth once 1 hour prior to the dental cleaning/procedure, # 4 capsule, 1 Refills, Soft Stop, 01/02/21 11:23:00 EDT, [facility]/pharmacy #[id number], Partial fill upon patient request if the prescription is f... Start Date: 01/02/21 Status: Ordered apixaban 2.5 mg oral tablet 1 tablet = 2.5 mg, By Mouth, 2 times a day, # 60 tablet, 5 Refills, Maintenance, 12/23/20 10:54:00 EDT, Tablet, [facility]/pharmacy #[id number], Partial fill upon patient request if the prescription is for a schedule II opioid drug., 162, cm, 12/05/20 16:12:00 EDT... Start Date: 12/23/20 Stop Date: 06/21/21 Status: Ordered apixaban 2.5 mg oral tablet 1 tablet = 2.5 mg, By Mouth, 2 times a day, # 60 tablet, 3 Refills, Maintenance, 01/02/21 8:16:00 EDT, Tablet, [facility]/pharmacy #[id number], Partial fill upon patient [...] 12/01/20 15:04:00 EDT, Route to Pharmacy Electronically, [facility], Partial fill upon patient [...] 0 Refills, Maintenance, 11/22/20 12:38:00 EDT, Tablet, [facility], Partial fill upon patient [...]
--- OUTSIDE RECORDS SUMMARY | 2023-08-01 17:37 | XMS_ITS | Continuity of Care Document ---
Author Organization [facility] Address [address] [place] [address]- Care Team Providers Care Internet Systems Administrator Name Role Phone Que Lopez MD Primary Care Physician Encounter [facility] [place] Date(s): 04/08/22 - 05/08/22 [facility] [address] [place] [address]- [place] Allergies, Adverse Reactions, Alerts No Known [...] 12:56:00 EDT, Inhaler, Route to Pharmacy Electronically, [id number], [facility], 158, cm, 08/06/20 [...] tablet, 1 Refills, Maintenance, 12/03/21 12:32:00EDT, [facility]t, [id number], cm, 01/02/21 10:44:00 EDT, Height, 55, kg, 12/03/20 17:28:00 EDT, Dry Weight Start Date: 12/03/21 Stop Date: 06/01/22 Status: Ordered apixaban 2.5 mg oral tablet 1 tablet = 2.5 mg, By Mouth, 2 times a day, # 60 tablet, 5 Refills, Maintenance, 12/23/20 10:54:00 EDT, Tablet, [id number] Partial fill upon patient request if the prescription is for a schedule II opioid drug., 162, cm, 12/05/20 16:12:00 EDT... Start Date: 12/23/20 Stop Date: 06/21/21 Status: Ordered furosemide 40 mg oral tablet 40 mg, 1, tablet, By Mouth, Every other day, START ON 12/02/2020, # 15 tablet, Refills 0, Tot. Refills 0, Maintenance, 12/01/20 15:04:00 EDT, Route to Pharmacy Electronically, [facility], Partial fill upon patient request [...] 0 Refills, Maintenance, 11/22/20 12:38:00 EDT, Tablet, [facility], Partial fill upon patient request [...] Reference Physician Member Role: PCP Address: Address: [address] [place] [phone]- [place] Name: Waleska Corrales RN Position: S RN Member Role: Primary Care Nurse Name: Jackie Purcell NP Position: Reference Physician Member Role: Primary Care Nurse Address: Address: [address] [place] [address]- [place] Name: Haim Manuel RN Position: S ED RN W/OE and Tasks Member Role: Primary Care Nurse Name: Marco Antonio Chavez RN Position: S RN Member Role: Primary Care Nurse Name: Claudine Nolan RN Position: S RN Member Role: Primary Care Nurse Name: Brenna Chavez RN Position: [facility] RN Member Role: Primary Care Nurse Name: Tori Rosas RN Position: [facility] PCO RN Member Role: Primary Care Nurse Name: Clarice Celeste RN Position: [facility] RN Member Role: Primary Care Nurse Name: Kassandra Mauricio RN Position: [facility] RN Supv Member Role: Primary Care Nurse Name: Jany Welsh RN Position: [facility] RN Member Role: Primary Care Nurse Care Team Related Persons Name: JUNI ZALDIVAR Address: home [address] [place] [address] Name: ZOHAIB AUGUST Address: [place] [address]
--- OUTSIDE RECORDS SUMMARY | 2023-08-01 17:37 | XMS_ITS | Continuity of Care Document ---
Author Organization [facility] Address [address] [place] [address]- Care Team Providers Care Philosophy And Religion Instructor Name Role Phone Que Lopez MD Primary Care Physician Encounter [facility] [place] [facility] R [id number] Date(s): 06/12/21 - 07/12/21 [facility] [address] [place] [address]- Attending Physician: Bryanna Mcgowan Admitting Physician: Bryanna [...] 12:56:00 EDT, Inhaler, Route to Pharmacy Electronically, [id number], [facility], 158, , 08/06/20 16... Start Date: 08/23/20 Status: Ordered amiodarone 200 mg oral tablet 200 mg, 1, tablet, By Mouth, Daily, # 30 tablet, Refills 5, Tot. Refills 5, Maintenance, 12/23/20 10:54:00 EDT, Route to Pharmacy Electronically, [facility]/pharmacy #[id number], Partial fill upon patient requestif the prescription is for a schedule II opioid jayy... Start Date: 12/23/20 Stop Date: 06/21/21 Status: Ordered amiodarone 200 mg oral tablet 200 mg, 1, tablet, By Mouth, Daily, # 30 tablet, Refills 11, Tot. Refills 11, Maintenance, 01/14/2113:52:00 EDT, [id number] fill upon patient [...] 0 Refills, Maintenance, 12/03/20 18:20:00 EDT, Tablet, [facility], Partial fill upon patient request if... Start Date: 12/03/20 Stop Date: 12/10/20 Status: Ordered amoxicillin 500 mg oral capsule 4 capsule = 2,000 mg, By Mouth, Once, Take 4 capsules by mouth once 1 hour prior to the dental cleaning/procedure, # 4 capsule, 1 Refills, Soft Stop, 01/02/21 11:23:00 EDT, [facility]/pharmacy #[id number], Partial fill upon patient request if the prescription is f... Start Date: 01/02/21 Status: Ordered apixaban 2.5 mg oral tablet 1 tablet = 2.5 mg, By Mouth, 2 times a day, # 60 tablet, 5 Refills, Maintenance, 03/24/21 10:50:00 EST, Tablet, [facility]/pharmacy #[id number], 162, cm, 01/02/21 10:44:00 EDT, Height, 55, kg, 12/03/20 17:28:00 EDT, Dry Weight Start Date: 03/24/21 Stop Date: 09/20/21 Status: Ordered apixaban 2.5 mg oral tablet 1 tablet = 2.5 mg, By Mouth, 2 times a day, # 60 tablet, 5 Refills, Maintenance, 12/23/20 10:54:00 EDT, Tablet, [facility]/pharmacy #[id number], Partial fill upon patient [...] 12/01/20 15:04:00 EDT, Route to Pharmacy Electronically, [facility], Partial fill [...] 0 Refills, Maintenance, 11/22/20 12:38:00 EDT, Tablet, [facility], Partial fill upon patient request if [...]
--- OUTSIDE RECORDS SUMMARY | 2023-08-01 17:37 | XMS_ITS | Continuity of Care Document ---
Author Organization [facility] Address [address] [place] [address]- Care Team Providers Care Registered Nurse Surgical Services Name Role Phone Que Lopez MD Primary Care Physician [place] [facility] [place] 02/15[place]23 - 03/17/23 [facility] [address] [place] [address]- [place] Allergies, Adverse Reactions, Alerts No Known Allergies Immunizations Given and Recorded Vaccine Date Status Refusal Reason pneumococcal 23-valent vaccine 1 10/22/13 Given 1Early/Late Reason: Other : Medications albuterol CFC free 90 mcg/inh inhalation aerosol 180 mcg, 2, puffs, Inhalation, Every 4 hours, PRN, # 1 each, Refills 0, Tot. Refills 0, Maintenance, 08/23/20 12:56:00 EDT, Inhaler, Route to Pharmacy Electronically, [id number], [facility], 158, cm, 08/06/20 16... Start Date: 08/23/20 Status: Ordered amiodarone 200 mg oral tablet 0.5 tablets, By Mouth, Daily, Take 1/2 tablet by mouth daily, # 15 tablet, Refills 5, Tot. Refills 5, Maintenance, 12/30/22 7:22:00 EDT, Route to Pharmacy Electronically, [facility]/pharmacy #[id number], Partial fill upon patient request if the prescription is for... Start Date: 12/30/22 Status: Ordered amoxicillin 500 mg oral capsule 4 capsule = 2,000 mg, By Mouth, Once, Take 4 capsules by mouth once 1 hour prior to the dental cleaning/procedure, # 4 capsule, 1 Refills, Soft Stop, 01/02/21 11:23:00 EDT, [facility]/pharmacy #[id number], Partial fill upon patient request if the prescription is f... Start Date: 01/02/21 Status: Ordered apixaban 2.5 mg oral tablet 1 tablet = 2.5 mg, By Mouth, 2 times a day, # 60 tablet, 5 Refills, Maintenance, 12/23/20 10:54:00 EDT, Tablet, [facility]/pharmacy #[id number], Partial fill upon patient request if the prescription is for a schedule II opioid drug., 162, cm, 12/05/20 16:12:00 EDT... Start Date: 12/23/20 Stop Date: 06/21/21 Status: Ordered apixaban 2.5 mg oral tablet 1 tablet = 2.5 mg, By Mouth, 2 times a day, # 180 tablet, 3 Refills, Maintenance, 07/21/22 12:47:00EDT, Tablet, [facility]/pharmacy #[id number], 162, cm, 07/16/22 11:33:00 EDT, Height, 55, kg, 12/03/20 17:28:00 EDT, Dry Weight Start Date: 07/21/22 Stop Date: 07/16/23 Status: Ordered furosemide 40 mg oral tablet 40 mg, 1, tablet, By Mouth, Every other day, START ON 12/02/2020, # 15 tablet, Refills 0, Tot. Refills 0, Maintenance, 12/01/20 15:04:00 EDT, Route to Pharmacy Electronically, [facility], Partial fill upon patient request if [...] 0 Refills, Maintenance, 11/22/20 12:38:00 EDT, Tablet, [facility], Partial fill upon [...] Reference Physician Member Role: PCP Address: Address: [address] [place] [address]- Name: Waleska Corrales RN Position: [facility] RN Member Role: Primary Care Nurse Name: Jackie Purcell NP Position: [facility] PCO Associate Professional Member Role: Primary Care Nurse Address: Address: [address] [place] [address]- [place] Name: Haim Manuel RN Position: [facility] ED RN W/OE and Tasks Member Role: Primary Care Nurse Name: MarcoA ntonio Chavez RN Position: S RN Member Role: Primary Care Nurse Name: Claudien Nolan RN Position: S RN Member Role: Primary Care Nurse Name: Brenna Chavez RN Position: [facility] RN Member Role: Primary Care Nurse Name: Tori Rosas RN Position: [facility] AMB Nurse Member Role: Primary Care Nurse Name: Clarice Celeste RN Position: [facility] RN Member Role: Primary Care Nurse Name: Kassandra Mauricio RN Position: [facility] RN Supv Member Role: Primary Care Nurse Name: Jany Welsh RN Position: [facility] RN Member Role: Primary Care Nurse Care Team Related Persons Name: JUNI ZALDIVAR Address: [address] [address] Name: BASSAM PENNY Address: [place] [address]
--- OUTSIDE RECORDS SUMMARY | 2023-08-01 17:37 | XMS_ITS | Continuity of Care Document ---
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
== END 2023-08-01 18:19 | disposition home or self-care (01) ==
LOC: HO.HMGH 17:34
PROVIDERS: PCP Internal Medicine; Visit Provider Internal Medicine
DX: I48.20 Chronic atrial fibrillation, unspecified (principal); I11.0 Hypertensive heart disease with heart failure; I50.32 Chronic diastolic (congestive) heart failure; D46.9 Myelodysplastic syndrome, unspecified; I35.0 Nonrheumatic aortic (valve) stenosis; E78.00 Pure hypercholesterolemia, unspecified; E03.9 Hypothyroidism, unspecified; C92.01 Acute myeloblastic leukemia, in remission; M15.9 Polyosteoarthritis, unspecified; M51.36 Other intervertebral disc degeneration, lumbar region; M85.80 Other specified disorders of bone density and structure, unspecified site; E55.9 Vitamin D deficiency, unspecified
CPT/HCPCS: 99443

== ENCOUNTER 2024-02-13 10:36 | Outpatient (REF) | payer MEDICARE, OTHER, SELFPAY ==
[2024-02-13 14:04] LABS: Estimated Glomerular Filt Rate 34
== END 2024-02-13 10:37 | disposition home or self-care (01) ==
LOC: HO.HMGCLDS 10:36
PROVIDERS: PCP Internal Medicine; Visit Provider Pharmacist
DX: I48.91 Unspecified atrial fibrillation (principal)
CPT/HCPCS: 36415; 82565

== ENCOUNTER → 2024-06-13 23:59 | Outpatient (BNV) | payer MEDICARE, OTHER, SELFPAY | PROVIDERS: PCP Internal Medicine; Visit Provider Internal Medicine | DX: I11.0 Hypertensive heart disease with heart failure (principal); I48.92 Unspecified atrial flutter; K21.9 Gastro-esophageal reflux disease without esophagitis; Z85.6 Personal history of leukemia | CPT/HCPCS: G0180 ==

== ENCOUNTER → 2024-09-18 23:59 | Outpatient (BNV) | payer MEDICARE, OTHER, SELFPAY | PROVIDERS: PCP Internal Medicine; Visit Provider Internal Medicine | DX: I13.0 Hypertensive heart and chronic kidney disease with heart failure and stage 1 through stage 4 chronic kidney disease, or unspecified chronic kidney disease (principal); I50.32 Chronic diastolic (congestive) heart failure; N18.9 Chronic kidney disease, unspecified; E03.9 Hypothyroidism, unspecified | CPT/HCPCS: G0180 ==

== ENCOUNTER 2024-10-24 14:33 | Outpatient (AMB) | payer MEDICARE, OTHER, SELFPAY ==
[2024-10-24 14:39] VITALS: BP 128/76
--- NOTE | 2024-10-24 14:39 | MHC.PC.OV ---
Vital Signs 10/24/24 14:39 Height 5 ft 4 in BMI Reason not done Patient refused/unable BP 128/76 Blood Pressure Location Lt brachial Position Sitting Pulse Source Pulse Oximeter Oxygen Delivery Method Room Air Intake Visit Reasons: follow up appt Shirt Finisher Required: No Accompanied by: Self / Same As Patient Allergies oxycodone Allergy (Unknown, Verified 10/24/24 15:15) hallucinations Medication List - Last Reconciled 10/24/24 by Que Lopez MD amiodarone 100 mg PO DAILY amoxicillin 2,000 mg (4 x 500 mg) PO ONCE 1 day apixaban (Eliquis) 2.5 mg PO BID furosemide (Lasix) 40 mg PO DAILY [KNEE BRACE (right) As directed] levothyroxine 100 mcg PO QAM Lipitor (atorvastatin) 10 mg PO DAILY 90 days NS omeprazole 20 mg PO DAILY tramadol 50 mg PO TID PRN 30 days [Wheelchair cushion As directed] Tobacco use date assessed: 10/24/24 Fall risk assessment: No Falls in past year Last assessed Fall Risk: 10/24/24 Dental Screening Dental Screen Date: 10/24/24 Did you have a dental visit in the last 12 months?: Yes Did you have a dental problem in the last 6 months where you did not have access to dental care?: No Was dental information given to patient?: Patient has dentist HPI follow up appt HPI Details Patient comes in today for her follow up visit States that she currently feels okay She denies any headaches or dizziness Any chest pains, no increased shortness of breath No nausea/vomiting, no abdominal pain No change in bowel habits noted States that she is scheduled for some vascular surgery on her right leg at [facility] in a couple of weeks on 11/08/[facility] Medical History Femur fracture (~08/08/14) Aortic stenosis GERD without esophagitis Vitamin D deficiency Osteopenia Constipation Myelodysplastic syndrome Acquired hypothyroidism Pure hypercholesterolemia Benign essential hypertension Atrial fibrillation Lumbar degenerative disc disease Osteoarthritis Acute myelogenous leukemia in remission Thrombocytopenia Congestive heart failure Surgical History History of excision of lesion (09/17/21) S/P TAVR (transcatheter aortic valve replacement) (~11/21/20) S/P aortic dissection repair (~01/27/19) Hx laparoscopic cholecystectomy (~06/01/17) Family History Father No problems noted. Mother No problems noted. Social History Housing: House Alcohol intake: never Patient Tobacco Use Status: Never used Tobacco Tobacco use type: Cigarette e-Cigarette/Vaping Use: Never Used Second Hand Smoke Exposure: No Current occupational status: retired Cognitive needs: No Hearing needs: No Vision needs: No Questionnaire PHQ-9 Over the last 2 weeks, how often have you been bothered by any of the following problems? 1. Little interest or pleasure in doing things: not at all 2. Feeling down, depressed, or hopeless: not at all 3. Trouble falling or staying asleep, or sleeping too much: not at all 4. Feeling tired or having little energy: not at all 5. Poor appetite or overeating: not at all 6. Feeling bad about yourself - or that you are a failure or have let yourself or your family down: not at all 7. Trouble concentrating on things, such as reading the newspaper or watching television: not at all 8. Moving or speaking so slowly that other people could have noticed. Or the opposite - being so fidgety or restless that you have been moving around a lot more than usual: not at all 9. Thoughts that you would be better off or of hurting yourself in some way: not at all Total score: 0 Depression Screening Interpretation: Negative Depression Screening Done: Yes 19291 - PHQ-9 Billing: Yes Source: Developed by Drs. Cheo Vidal, Gisela Govea, Michael Smith and colleagues, with an educational gurmeet from [employer]. Thrive Questionnaire Date Thrive assessed: 10/24/24 I am a: Patient What is your living situation today?: I have a steady place to live Within the past 12 months, did the food you bought not last and you didn't have the money to get more?: Never true Within the past 12 months, did you worry whether your food would run out before you got money to buy more?: Never true Do you have trouble paying for medicines?: No Do you have trouble getting transportation to medical appointments?: No Do you have trouble paying your heating and electricity bill?: No Do you have trouble taking care of your child, family member or friend?: No Do you have trouble with day-to-day activities such as bathing, preparing meals, shopping, managing finances, etc.?: No Are you currently unemployed and looking for a job?: No Are you interested in more education?: No Please select the resources that you would like help with: None Currently or been in a relationship where the following occur: No concerns reported THRIVE Score: 0 AUDIT C Alcohol Use Questionnaire (AUDIT-C) 1. How often do you have a drink containing alcohol?: Never 3. How often do you have six or more drinks on one occasion?: Never Total Score: 0 Score Reviewed/Action Taken: Yes MILO-7 AMB Questionnaire MILO-7 Date MILO - 7 assessed: 10/24/24 Feeling nervous, anxious, or on edge: 0 = Not at all Not being able to stop or control worryin = Not at all Worrying too much about different things: 0 = Not at all Trouble relaxin = Not at all Being so restless that it is hard to sit still: 0 = Not at all Becoming easily annoyed or irritable: 0 = Not at all Feeling afraid as if something awful might happen: 0 = Not at all Total MILO-7 score (0-4 normal; 5-9 mild; 10-14 moderate; 15-21 severe): 0 Source: Developed by Drs. Cheo Vidal, Gisela Govea, Michael Smith and colleagues, with an educational gurmeet from [employer]. Review of Systems Const Denies chills, Reports fatigue (mild), Denies fever(s) and Denies headache(s) ENT Denies dysphagia, Denies dizziness, Denies otalgia, Denies headache(s), Denies neck pain, Denies odynophagia and Denies sore throat Card Denies chest pain, Denies palpitations and Reports dyspnea on exertion (mild) Resp Denies chest congestion, Denies cough and Reports dyspnea on exertion (mild) GI Denies abdominal pain, Denies constipation, Denies dysphagia, Denies heartburn, Denies diarrhea, Denies nausea, Denies odynophagia and Denies vomiting Denies difficulty voiding, Denies nocturia and Denies dysuria Musc Reports back pain (over the lower back - chronic) and Denies neck pain Skin/Breast Denies rash Neuro Denies dizziness and Denies headache(s) Endo Reports fatigue (mild) and Denies palpitations Jass/Lymph Denies easy bleeding and Denies easy bruising Physical exam (Primary Care) Vital Signs: Last Vital Signs BP 128/76 10/24/24 14:39 Oxygen Delivery Method Room Air 10/24/24 14:39 Tobacco/Smoking Status: Tobacco use Status Tobacco use date assessed 10/24/24 10/24/24 14:48 Patient Tobacco Use Status Never used Tobacco 10/24/24 14:48 Tobacco use type Cigarette 10/24/24 14:48 e-Cigarette/Vaping Use Never Used 10/24/24 14:48 PHQ-9: PHQ-9 Score PHQ-9: Total score 0 10/24/24 15:25 Depression Screening Interpretation: Negative Thrive Assessment: Date of Thrive Assessment Date Thrive assessed 10/24/24 10/24/24 14:48 Currently or been in a relationship where the following occur: No concerns reported Const General: no acute distress and alert HENMT Ears: TM's normal bilaterally and EAC's normal Throat: Yes posterior oropharynx normal and Yes tonsils normal (no TP congestion noted) Neck Neck: Yes supple and No lymphadenopathy Thyroid: Thyroid normal Resp Auscultation: clear to auscultation bilaterally, no rales and no wheezes Cardio Rate: regular rate Rhythm: regular rhythm Heart sounds: Clicking heart sound present ((+) metallic click over the second heart sound) and Murmur heart sound present systolic mid, IV/ and at the right sternal border GI Palpation (GI): Soft to palpation and nontender Auscultation: normal bowel sounds General: Yes no CVA tenderness Back/Spine/Pelvis Back: no CVA tenderness Thoracic/Lumbar Spine: lumbar spinal tenderness Extrem General: Yes no clubbing, cyanosis or edema Coding Level of Care Code Est Pt Level 4 (60668) Diagnoses Chronic atrial fibrillation I48.20 Atrial fibrillation type: unspecified chronic Nonrheumatic aortic valve stenosis I35.0 Cardiac valve disease etiology: nonrheumatic Chronic diastolic congestive heart failure I50.32 Heart failure type: diastolic Heart failure chronicity: chronic Benign essential hypertension I10 Pure hypercholesterolemia E78.00 Acquired hypothyroidism E03.9 Myelodysplastic syndrome D46.9 Acute myelogenous leukemia in remission C92.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 Osteoarthritis location: multiple joints Osteoarthritis type: primary Degeneration of intervertebral disc of lumbar region with discogenic back pain M51.360 Disc-related pain type: discogenic back pain only Osteopenia, unspecified location M85.80 Osteopenia location: unspecified Vitamin D deficiency E55.9 GERD without esophagitis K21.9 Constipation, unspecified constipation type K59.00 Constipation type: unspecified constipation type Additional Codes PHQ-9 - 67414 - PHQ-9 Billing: Yes ([id number]) Assessment & Plan Assessment & Plan (1) Atrial fibrillation: Code(s): I48.91 - Unspecified atrial fibrillation Category: Medical Qualifiers: Atrial fibrillation type: unspecified chronic Qualified Code(s): I48.20 - Chronic atrial fibrillation, unspecified Plan: Patient was in atrial fibrillation previously but reportedly developed atrial flutter after her TAVR in November 2020 that responded to IV Lopressor She remains in sinus rhythm and has been maintained on Amiodarone since Continue Amiodarone 100 mg QD (dose was lowered by cardiology from 200 mg last year) Continue Eliquis 2.5 mg BID for thromboembolism prophylaxis (2) Aortic stenosis: Comment: S/P TAVR on 11/21/2020 Code(s): I35.0 - Nonrheumatic aortic (valve) stenosis Category: Medical Qualifiers: Cardiac valve disease etiology: nonrheumatic Qualified Code(s): I35.0 - Nonrheumatic aortic (valve) stenosis Plan: Patient Is currently still doing well without any significant cardiac symptoms She is reminded that she will need Abx prophylaxis in the future for any dental or GI/ procedures Follow up with cardiology as scheduled (3) Congestive heart failure: Comment: NYHA class 3 Code(s): I50.9 - Heart failure, unspecified Category: Medical Qualifiers: Heart failure type: diastolic Heart failure chronicity: chronic Qualified Code(s): I50.32 - Chronic diastolic (congestive) heart failure Plan: Patient remains hemodynamically compensated at present Reinforced fluid restrictions Continue Furosemide 40 mg every other day Advised that it has been a while now (2020) since she had a follow up echocardiogram done - patient states that she will be getting one done soon with cardiology (4) Benign essential hypertension: Code(s): I10 - Essential (primary) hypertension Category: Medical Plan: Reinforced low sodium diet - goal is systolic BP of at least 130 to 140 mm or less She was previously on Metoprolol ER but this was apparently discontinued following her TAVR; is currently only on Furosemide 40 mg every other day although this is more for her CHF (5) Pure hypercholesterolemia: Code(s): E78.00 - Pure hypercholesterolemia, unspecified Category: Medical Plan: Reinforced low cholesterol diet Continue Atorvastatin 10 mg QD Patient has not been able to get follow-up labs done regularly due to her mobility and transportation issues Will just have her recheck her labs and fasting lipids in 4 months for follow up (6) Acquired hypothyroidism: Code(s): E03.9 - Hypothyroidism, unspecified Category: Medical Plan: Patient is currently clinically euthyroid; TSH done a few months ago was normal Continue Levothyroxine 100 mcg QD Will recheck her TFTs in 4 months for follow up (7) Myelodysplastic syndrome: Code(s): D46.9 - Myelodysplastic syndrome, unspecified Category: Medical Plan: Stable although cautioned that she was still moderately anemic (H/H = 9.7/31.6) on her last labs done back in February 2023 Will continue to monitor her CBC regularly Follow up with hematology/oncology (Dr. 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 Code(s): C92.01 - Acute myeloblastic leukemia, in remission Category: Medical Plan: In remission Follow up with hematology/oncology regularly as scheduled for continuing surveillance - is scheduled to be seen again in a couple of months (9) Osteoarthritis: Code(s): M19.90 - Unspecified osteoarthritis, unspecified site Category: Medical Qualifiers: Osteoarthritis location: multiple joints Osteoarthritis type: primary Qualified Code(s): M15.9 - Polyosteoarthritis, unspecified Plan: Continue Tylenol 325 mg 2 tablets every 6 hours as needed for pain (10) Lumbar degenerative disc disease: Code(s): M51.36 - Other intervertebral disc degeneration, lumbar region Category: Medical Qualifiers: Disc-related pain type: discogenic back pain only Qualified Code(s): M51.360 - Other intervertebral disc degeneration, lumbar region with discogenic back pain only Plan: Reinforced activity and weight-lifting restrictions although this is currently not an issue as patient has been practically wheelchair-bound following her heart surgery a couple of months ago Continue Tramadol 50 mg every 8 hours as needed for pain (11) Osteopenia: Code(s): M85.80 - Other specified disorders of bone density and structure, unspecified site Category: Medical Qualifiers: Osteopenia location: unspecified Qualified Code(s): M85.80 - Other specified disorders of bone density and structure, unspecified site Plan: BMD last done on 07/21/2018 - will continue to monitor BMD regularly for now Patient prefers not to have this done for now (12) Vitamin D deficiency: Code(s): E55.9 - Vitamin D deficiency, unspecified Category: Medical Plan: Continue Vitamin D3 2000 units QD (13) GERD without esophagitis: Code(s): K21.9 - Gastro-esophageal reflux disease without esophagitis Category: Medical Plan: Dietary restrictions reinforced Continue Omeprazole 20 mg QD (14) Constipation: Code(s): K59.00 - Constipation, unspecified Category: Medical Qualifiers: Constipation type: unspecified constipation type Qualified Code(s): K59.00 - Constipation, unspecified Plan: Reinforced increased dietary fiber and to stay hydrated May take OTC stool softeners as needed Plan Follow up in 4 months
--- OUTSIDE RECORDS SUMMARY | 2024-10-24 15:00 | XMS_ITS | Clinical Summary ---
Author Organization [facility] Address [address] [place] [address] Care Team Providers Care Product Support Technician Name Role Phone Que Lopez MD Primary Care Provider [phone] Marcello Cabrera MD Unavailable Allergies Active Allergy Reactions Criticality Noted Date Comments Lactose GI Intolerance/Nausea/Vomiting Low 02/09 Medications hydrocortisone 1 % creamIndicatio ns:Aortic dissection (HCC) Apply topically 2 (two) times a day. 30 g 03/25/19 20 Active witch halina-glycerin (TUCKS) padIndications :Aortic dissection (HCC) Apply topically as needed for irritation. 40 Pad 03/25/19 20 Active aspirin 81 MG chewable tabletIndicati ons:Hemoptysis Chew 1 tablet (81 mg total) daily. 03/25/19 20 Active diphenoxylate- atropine (LOMOTIL) 2.5-0.025 MG per tabletIndicati ons:Hemoptysis Take 2 tablets by mouth 4 times daily (every 6 hours) as needed for diarrhea. 30 tablet 03/25/19 20 Active acetaminophen (TYLENOL) 325 MG tabletIndicati ons:Hemoptysis Take 2 tablets (650 mg total) by mouth 4 times daily (every 6 hours) as needed for moderate pain. 03/25/19 20 Active tamsulosin (FLOMAX) 0.4 MG capsuleIndicat ions:Hemoptysi s Take 1 capsule (0.4 mg total) by mouth every evening after dinner. 30 capsule 03/25/19 20 Active bisacodyl (DULCOLAX) 10 MG suppositoryInd ications:Hemop tysis Insert 1 suppository (10 mg total) into the rectum daily as needed for constipation (if no bowel movement by day 2). 12 suppository 03/25/19 20 Active melatonin 3 MG Tab tabletIndicati ons:Hemoptysis Take 1 tablet (3 mg total) by mouth nightly. 30 tablet 03/25/19 20 Active senna-docusate (SENNA-S) 8.6-50 MGIndications: Hemoptysis Take 2 tablets by mouth nightly as needed for constipation. 60 tablet 03/25/19 20 Active traMADol (ULTRAM) 50 MG tablet Take 50 mg by mouth as needed for severe pain. Active OMEprazole (PriLOSEC) 20 MG capsule Take 20 mg by mouth every morning before breakfast. Active amLODIPine (NORVASC) 2.5 MG tablet Take 2.5 mg by mouth daily. Active atorvastatin (LIPITOR) 10 MG tablet Take 10 mg by mouth daily. Active levothyroxine (SYNTHROID, LEVOTHROID) 100 MCG tablet Take 100 mcg by mouth daily on an empty stomach. Active metoPROLOL TARTRATE (LOPRESSOR) 25 MG tablet Take 25 mg by mouth daily. Active furosemide (LASIX) 40 MG tablet Take 40 mg by mouth daily. Active potassium chloride (KLOR-CON M20) 20 MEQ tablet Take 20 mEq by mouth daily. Swallow whole, do not crush. Take with food Active Active Problems Problem Noted Date Diagnosed Date Pseudoaneurysm following procedure 07/10/2019 Aortic dissection 03/17/2019 Difficult airway for intubation 02/21/2019 Ascending aortic aneurysm 01/28/2019 Pneumothorax 01/27/2019 Overview (02/02/2019): Added automatically from request for surgery [id number] Pleural effusion 01/27/2019 Overview (02/02/2019): Added automatically from request for surgery [id number] Acute respiratory failure with hypoxia 9 Overview (02/20/2019): Added automatically from request for surgery [id number] Dysphagia 01/27/2019 Overview (03/04/2019): Added automatically from request for surgery [id number] Social History Tobacco Use Types Packs/Day Years Used Date Smoking Tobacco: Never Smokeless Tobacco: Never Alcohol Use Standard Drinks/Week Comments Not Currently 0 (1 standard drink = 0.6 oz pur e alcohol) Comments Unknown Sex and Gender Information Value Date Recorded Sex Assigned at Not on file Legal Sex Female 6:01 PM EST Gender Identity Not on file Sexual Orientation Not on file Last Filed Vital Signs Vital Sign Reading Time Taken Comments Blood Pressure 130/60 02/07/2020 11:57 AM EST Pulse 71 02/07/2020 11:57 AM EST Temperature 37 C (98.6 F) 02/07/2020 11:57 AM EST Respiratory Rate 16 02/07/2020 11:5 7 AM EST Oxygen Saturation 95% 02/07/2020 11: 57 AM EST Inhaled Oxygen Concentration - - Weight 60.3 kg (133 lb) 02/07/2020 11:5 7 AM EST with clothes and shoes Height 162.6 cm (5' 4 ) 02/07/2020 11:5 7 AM EST Body Mass Index 22.83 02/07/2020 11:57 AM EST Plan of Treatment Health Maintenance Due Date Last Done Comments DTaP/Tdap/Td Vaccines (1 - Tdap) 09/03/1954 Pneumococcal Vaccines 50+ (1 of 1 - PCV) 1986 Zoster (Shingles) Vaccine (1 of 2) 1986 DXA Bone Density (Females,Ag es 65 and older) 2001 RSV Vaccine 60 years and old er and Patients (1 - 1-dose 75+ series) 09/03/2011 COVID-19 Vaccine ( - 2023-2 5 season) 2023 Influenza Vaccine 10/19/2024 Hepatitis B Vaccines Aged Out No long er eligible based on patient's age to complete this topic Medical Devices Implanted Type Area Plastics Nurse Device Identifier Shelf Expiration Date Model / Serial / Lot [id number] Graft Cardiovascular 15cm 8mm Thor Knit [facility] G 2 r [facility] - [id number] Implanted:Qty: 1 on 01/27/2019 by Kermit Alvarez MD at Graft Left: Groin [employer] 06/19/2023 [id number] [facility] / [id number] Description:Left Femoral Art art Cannulation Site 195619/[id number] Graft Vascular 40cm 8mm 28mm Glwv Antfl Ascnd Arch Dsnd Thor - [id number] Implanted:Qty: 1 on 01/27/2019 by Kermit Alvarez MD at Graft Left: Aorta [employer] - [employer] 09/17/2021 [id number] / [id number] / [id number] Kit Peg 20fr Xlcn Viri Push Meth Amp Troc Cannula Rnd - [id number] Implanted:Qty: 1 on 03/07/2019 by Ottoniel Lazaro MD at [employer] [id number] / / [id number] Insurance MEDICARE PART A & B [facility] MEDICARE PART A & B [facility] Advance Directives Documents on File Type Date Recorded 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 Health Care Representati ve Care Teams Product Support Technician Relationship Specialty Start Date End Date Que Lopez MD [address] [place] [address] [address] [place] [address] PCP - General Internal Medicine 01/27/19 Marcello Cabrera MD [address] [facility] [address] [place] [address] Chief Psychology Cardiovascular Disease 02/07/20
--- OUTSIDE RECORDS SUMMARY | 2024-10-24 15:00 | XMS_ITS | Patient Health Record ---
Author Organization [facility] Address [address] [place] [id number] Care Team Providers Care Fiber Analyst Name Role Phone Dimitri Montoya Jr [phone] Reason For Referral No Information Plan Of Treatment No Information
--- OUTSIDE RECORDS SUMMARY | 2024-10-24 15:00 | XMS_ITS | Encounter Summary ---
Author Organization [facility] Address [address] [place] [id number] Care Team Providers Care Pc Support Specialist Name Role Phone Que Lopez MD Primary Care Provider [phone] Encounter Details Date Type Department Care Team (Late st Contact Info) Description 07/26/2024 Lab Requisition [facility] - Main Lab [address] [facility] [place] [place] [id number] Eli Davidson MD [address] [place] [address] Essential (primary) hypertension; Heart failure, unspecified (CMS/HCC V24, CMS/HCC V28); Hypothyroidism, unspecified Social History Tobacco Use Types Packs/Day Years Used Date Smoking Tobacco: Never Assessed Comments Unknown Sex and Gender Information Value Date Recorded Sex Assigned at Not on file Legal Sex Female 12:24 PM EST Gender Identity Not on file Sexual Orientation Not on file documented as of this encounter Plan of Treatment Not on file documented as of this encounter Procedures Procedure Name Priority Date/Time Associated Diagnosis Comments COMPLETE BLOOD COUNT Routine 07/26/2024 5:37 AM EDT Essential (primary) hypertension Heart failure, unspecified (CMS/HCC V24, CMS/HCC V28) Hypothyroidism, unspecified THYROID STIMULATING HORMONE Routine 07/26/2024 5:37 AM EDT Essential (primary) hypertension Heart failure, unspecified (CMS/HCC V24, CMS/HCC V28) Hypothyroidism, unspecified COMPREHENSIVE METABOLIC PANEL Routine 07/26/2024 5:37 AM EDT Essential (primary) hypertension Heart failure, unspecified (CMS/HCC V24, CMS/HCC V28) Hypothyroidism, unspecified documented in this encounter Results * Thyroid stimulating hormone (07/26/2024 5:37 AM EDT) Pathologist [facility] TSH 1.49 0.40 - 4.00 mcIU/mL LAB CHEMISTRY METHOD 07/26/2024 10:26 AM EDT [facility] Blood Venous blood specimen / Unknown Venipuncture / Unknown 07/26/2024 5:37 AM EDT 07/26/2024 6:53 AM EDT us Eli Davidson MD LAB BLOOD ORDERABLES Final Resul t [facility] [address] [place] [address], [place] [phone] * (ABNORMAL) Comprehensive metabolic panel (07/26/2024 5:37 AM EDT) Pathologist [facility] Sodium 141 133 - 145 mmol/L LAB CHEMISTRY METHOD 07/26/2024 9:17 AM [facility] Potassium 3.8 3.5 - 5.5 mmol/L LAB CHEMISTRY METHOD 07/26/2024 9:17 AM [facility] Chloride 107 96 - 110 mmol/L LAB CHEMISTRY METHOD 07/26/2024 9:17 AM [facility] CO2 27 21 - 32 mmol/L LAB CHEMISTRY METHOD 07/26/2024 9:17 AM [facility] Anion Gap 7 3 - 11 LAB CHEMISTRY METHOD 07/26/2024 9:17 AM [facility] Glucose 81 70 - 100 mg/dL LAB CHEMISTRY METHOD 07/26/2024 9:17 AM [facility] BUN 21 5 - 25 mg/dL LAB CHEMISTRY METHOD 07/26/2024 9:17 AM [facility] Creatinine 1.24(H) 0.50 - 1.10 mg/dL LAB CHEMISTRY METHOD 07/26/2024 9:17 AM [facility] eGFR 42(L) >=60 mL/min/1. 73m2 LAB CHEMISTRY METHOD 07/26/2024 9:17 AM [facility] Comment:Calculation based on the Chronic Kidney Disease Epidemiology Collaboration (CKD-EPI) equation refit without adjustment for race. BUN/Creatinine Ratio 16.9 LAB CHEMISTRY METHOD 07/26/2024 9:17 AM [facility] Calcium 8.0(L) 8.5 - 10.5 mg/dL LAB CHEMISTRY METHOD 07/26/2024 9:17 AM [facility] AST (SGOT) 13 10 - 42 unit/L LAB CHEMISTRY METHOD 07/26/2024 9:17 AM [facility] ALT (SGPT) 14 10 - 60 unit/L LAB CHEMISTRY METHOD 07/26/2024 9:17 AM [facility] Alkaline Phosphatase 76 42 - 121 unit/L LAB CHEMISTRY METHOD 07/26/2024 9:17 AM [facility] Total Protein 5.4(L) 6.0 - 8.0 g/dL LAB CHEMISTRY METHOD 07/26/2024 9:17 AM [facility] Albumin 2.8(L) 3.2 - 5.0 g/dL LAB CHEMISTRY METHOD 07/26/2024 9:17 AM [facility] Total Bilirubin 0.7 0.0 - 1.4 mg/dL LAB CHEMISTRY METHOD 07/26/2024 9:17 AM [facility] Blood Venous blood specimen / Unknown Venipuncture / Unknown 07/26/2024 5:37 AM EDT 07/26/2024 6:53 AM EDT us Eli Davidson MD LAB BLOOD ORDERABLES Final Resul t [facility] [address] [place] [address], * (ABNORMAL) Complete blood count (07/26/2024 5:37 AM EDT) [facility] WBC 9.5 4.8 - 10.8 K/mcL LAB HEMETOLOGY METHOD 07/26/2024 8:26 AM [facility] RBC 2.40(L) 3.80 - 4.80 M/mcL LAB HEMETOLOGY METHOD 07/26/2024 8:26 AM EDT [facility] Hemoglobin 7.4(L) 11.5 - 16.0 g/dL LAB HEMETOLOGY METHOD 07/26/2024 8:26 AM [facility] Hematocrit 23.4(L) 35.0 - 47.0 % LAB HEMETOLOGY METHOD 07/26/2024 8:26 AM [facility] MCV 95.9 79.0 - 98.0 FL LAB HEMETOLOGY METHOD 07/26/2024 8:26 AM [facility] MCH 30.3 27.0 - 32.0 pcg LAB HEMETOLOGY METHOD 07/26/2024 8:26 AM [facility] MCHC 31.6(L) 32.0 - 37.0 g/dL LAB HEMETOLOGY METHOD 07/26/2024 8:26 AM [facility] RDW 18.2(H) 11.0 - 15.0 % LAB HEMETOLOGY METHOD 07/26/2024 8:26 AM [facility] Platelets 135 130 - 400 K/mcL LAB HEMETOLOGY METHOD 07/26/2024 8:26 AM [facility] MPV 13.8(H) 7.0 - 11.0 FL LAB HEMETOLOGY METHOD 07/26/2024 8:26 AM [facility] NRBC 0.0 <1.0 % LAB HEMETOLOGY METHOD 07/26/2024 8:26 AM EDT [facility] NRBC Absolute 0.00 <0.10 K/mcL LAB HEMETOLOGY METHOD 07/26/2024 8:26 AM EDT [facility] Blood Venous blood specimen / Unknown Venipuncture / Unknown 07/26/2024 5:37 AM EDT 07/26/2024 6:53 AM EDT us Eli Davidson MD LAB BLOOD ORDERABLES Final Resul t [facility] [address] [place] [address], documented in this encounter Visit Diagnoses Diagnosis Essential (primary) hypertension Unspecified essential hypertension Heart failure, unspecified (CMS/HCC V24, CMS/HCC V28) Heart failure, unspecified Hypothyroidism, unspecified documented in this encounter Care Teams Pc Support Specialist Relationship Specialty Start Date End Date uQe Lopez MD [address] [facility] [address] [place], [place] PCP - General Internal Medicine 03/01/24 documented as of this encounter
--- OUTSIDE RECORDS SUMMARY | 2024-10-24 15:00 | XMS_ITS ---
Author Organization [facility] Care Team Providers Care Guest Relations Associate Name Role Phone Elder, Josey Mejias Unavailable Unavailable Dena Obrien Unavailable Unavailable Mary Jo Mccoy Unavailable Unavailable Flaca Loja Unavailable Unavailable Allergies and adverse reactions Code CodeSystem Substance Reaction Severity StartDate Concern Status Lactose Unknown 04/20/2019 active Care Team Name Role Address Phone Organization Dates Josey Mejias Elder PCP [address], [facility], [facility] (Office): : [facility] 04/20/2019 - 05/10/2019 Dena Obrien [address] [address], [place], [address], [facility] (Office): : [facility] 04/20/2019 - 05/10/2019 Mary Jo Mccoy [address], [address], [facility] (Office): : [facility] 04/20/2019 - 05/10/2019 Flaca Loja [address] [address], [place], [address], [facility] (Office): : [phone] [facility] 04/20/2019 - 05/10/2019 Mental Status Section Date Assessment Total Score Description 05/10/2019 BIMS 15 cognitively int act CAM 0 No delirium ind icated PHQ-9 00 04/27/2019 BIMS 15 cognitively int act CAM 0 No delirium ind icated PHQ-9 00 Problems Problem # Description Date of onset Resolved Date Code CodeSystem Concern Status 1 ACUTE KIDNEY FAILURE, UNSPECIFIED [address] active 2 ACUTE RESPIRATORY FAILURE, UNSPECIFIED WHETHER WITH HYPOXIA OR HYPERCAPNIA [address] active 3 DYSPHAGIA FOLLOWING CEREBRAL INFARCTION [address] active 4 DYSPHONIA [address] active 5 ENCOUNTER FOR SURGICAL AFTERCARE FOLLOWING SURGERY ON THE CIRCULATORY SYSTEM [address] active 6 HEMIPLEGIA AND HEMIPARESIS FOLLOWING CEREBRAL INFARCTION AFFECTING LEFT NON-DOMINANT SIDE [address] active 7 HYPERLIPIDEMIA, UNSPECIFIED [address] active 8 HYPERTENSIVE HEART DISEASE WITHOUT HEART FAILURE [address] active 9 LEUKEMIA, UNSPECIFIED, IN REMISSION [address] active 10 METHICILLIN SUSCEPTIBLE STAPHYLOCOCCUS AUREUS INFECTION THE CAUSE OF DISEASES CLASSIFIED ELSEWHERE [address] active 11 PAROXYSMAL ATRIAL FIBRILLATION [address] active 12 PERSONAL HISTORY OF OTHER DISEASES OF THE DIGESTIVE SYSTEM [address] active 13 PNEUMONIA DUE TO METHICILLIN SUSCEPTIBLE STAPHYLOCOCCUS AUREUS [address] active 14 RETENTION OF URINE, UNSPECIFIED [address] active 15 TRACHEOSTOMY STATUS [address] active 16 MUSCLE WEAKNESS (GENERALIZED) [address] active 17 OTHER ABNORMALITIES OF GAIT AND MOBILITY [address] active Reason for Referral No Reasons for Referral Entered Social History Social History Observation Description Start Date End Date Code Code System Current Smoking Status Tobacco smoking consumption unknown 840275101 SNOMED CT Sex Assigned At Female 1935 [id number] [facility] Gender Identity
--- OUTSIDE RECORDS SUMMARY | 2024-10-24 15:00 | XMS_ITS | Clinical Summary ---
Author Organization [facility] Address [address] [address] Care Team Providers Care Will Call Order Clerk Name Role Phone Unavailable Primary Care Provider Unavailabl e Social History Tobacco Use Types Packs/Day Years Used Date Smoking Tobacco: Never Assessed Comments Unknown Sex and Gender Information Value Date Recorded Sex Assigned at Not on file Legal Sex Female 11:01 AM EDT Gender Identity Not on file Sexual Orientation Not on file Plan of Treatment Health Maintenance Due Date Last Done Comments Pneumococcal Vaccine: 50+ Ye ars (1 of 1 - PCV) 1986 Influenza Vaccine (#1) 2024 Hepatitis B Vaccine Aged Out No longe r eligible based on patient's age to complete this topic Insurance Medicare Medicare
== END 2024-10-24 15:29 | disposition home or self-care (01) ==
LOC: HO.HMCH 14:34
PROVIDERS: PCP Internal Medicine; Visit Provider Internal Medicine
DX: I48.20 Chronic atrial fibrillation, unspecified (principal); I50.32 Chronic diastolic (congestive) heart failure; D46.9 Myelodysplastic syndrome, unspecified; C92.01 Acute myeloblastic leukemia, in remission; I35.0 Nonrheumatic aortic (valve) stenosis; I10 Essential (primary) hypertension; E78.00 Pure hypercholesterolemia, unspecified; E03.9 Hypothyroidism, unspecified; M15.9 Polyosteoarthritis, unspecified; M51.360 Other intervertebral disc degeneration, lumbar region with discogenic back pain only; M85.80 Other specified disorders of bone density and structure, unspecified site; E55.9 Vitamin D deficiency, unspecified

== ENCOUNTER → 2024-10-24 14:33 | Outpatient (BNVA) | payer MEDICARE, OTHER, SELFPAY | PROVIDERS: PCP Internal Medicine; Visit Provider Internal Medicine | DX: I48.20 Chronic atrial fibrillation, unspecified (principal); I35.0 Nonrheumatic aortic (valve) stenosis; I11.0 Hypertensive heart disease with heart failure; I50.32 Chronic diastolic (congestive) heart failure; E78.00 Pure hypercholesterolemia, unspecified; E03.9 Hypothyroidism, unspecified; D64.9 Anemia, unspecified; M15.9 Polyosteoarthritis, unspecified; M51.360 Other intervertebral disc degeneration, lumbar region with discogenic back pain only; M85.80 Other specified disorders of bone density and structure, unspecified site; K21.9 Gastro-esophageal reflux disease without esophagitis; E59 Dietary selenium deficiency; K59.00 Constipation, unspecified | CPT/HCPCS: 96127; 99212 ==